=== PATIENT | female | born 1995 | race Caucasian/White ===

== ENCOUNTER 2017-04-21 21:55 | Emergency (ER) | payer OTHER, MEDICAID ==
[2017-04-21 22:32] LABS: BILIRUBIN,URINE NEGATIVE (NEGATIVE)
[2017-04-21 22:36] LABS: HCG UR QUAL NEGATIVE; UA w/ MICROSCOPIC CHARGE YES
[2017-04-21 22:37] LABS: BASOPHILS % (AUTO) 0.5 %; EOSINOPHILS # (AUTO) 0.2 10^3/uL (0.0-0.7); EOSINOPHILS % (AUTO) 1.5 %; HCT - HEMATOCRIT 37.7 % (37.0-47.0); HGB - HEMOGLOBIN 12.4 g/dL (12.0-16.0); LYMPHOCYTES # (AUTO) 3.9 10^3/uL (1.5-3.5); LYMPHOCYTES % (AUTO) 39.4 %; MEAN CORPUSCULAR HEMOGLOBIN 26.9 pg (27.0-31.0); MEAN CORPUSCULAR HGB CONC 32.8 g/dL (32.0-36.0); MEAN CORPUSCULAR VOLUME 82.2 fL (81.0-99.0); MEAN PLATELET VOLUME 7.4 fL (7.9-10.8); MONOCYTES # (AUTO) 0.9 10^3/uL (0.0-1.0); MONOCYTES % (AUTO) 9.1 %; NEUTROPHILS # (AUTO) 4.9 10^3/uL (1.5-6.6); NEUTROPHILS % (AUTO) 49.5 %; RED BLOOD COUNT 4.59 10^6/uL (4.20-5.40); RED CELL DISTRIBUTION WIDTH 14.8 % (12.0-15.0)
[2017-04-21 22:48] LABS: ALBUMIN/GLOBULIN RATIO 0.9 (1.0-2.2); BILIRUBIN,TOTAL < 0.2 mg/dL (0.2-1.0); BUN - BLOOD UREA NITROGEN 10 mg/dL (6-20); CALCIUM 8.9 mg/dL (8.5-10.3); CARBON DIOXIDE - CO2 23 mmol/L (21-32); CHLORIDE 108 mmol/L (101-111); CREATININE 0.7 mg/dL (0.4-1.0); GFR - MDRD 108 (>89); GLUCOSE 87 mg/dL (70-100); LIPASE 31 U/L (22-51); SALICYLATE < 6.0 mg/dL; SODIUM 140 mmol/L (135-145); TOTAL PROTEIN 7.5 g/dL (6.7-8.2)
[2017-04-21 23:08] LABS: UR CULTURE IF IND INDICATED
[2017-04-21 23:26] LABS: ACETAMINOPHEN < 10 ug/mL (10-30)
[2017-04-21] MEDS ORDERED: SULFAMETH/TRIMETH DS 800/160 MG TABLET PO STA (23:43)
[2017-04-22] MEDS ORDERED: SULFAMETH/TRIMETH DS 800/160 MG TABLET PO ONE (00:31)
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
--- NOTE | 2017-04-22 03:30 | ED Physician Documentation ---
PD HPI MHE - Stated complaint Stated Complaint: SI/MHE - Chief complaint Chief Complaint: MHE - History obtained from History obtained from: Patient, EMS - History of Present Illness Primary symptom: Suicidal ideation, Depression Timing - onset: Chronic Contributing factors: Other Similar symptoms before: Work up / diagnostics, Treatment, Follow up Recently seen: Admitted - Additional information Additional information: Patient is a 21 year old female with a history of depression who is presenting to the emergency department for suicidal ideation. Patient states that she does not like herself and she wants to . patient reports that she would have taken all of her meds, but her parents control them. Patient deny any new life changes or medical complaints. Review of Systems Constitutional: denies: Fever, Chills Eyes: denies: Photophobia Ears: denies: Ear pain, Drainage/discharge Nose: denies: Congestion Throat: denies: Dental pain / toothache Cardiac: denies: Chest pain / pressure GI: denies: Abdominal Pain, Nausea, Vomiting : denies: Dysuria, Frequency Musculoskeletal: denies: Neck pain, Back pain, Extremity pain Neurologic: denies: Generalized weakness, Numbness Psychiatric: reports: Depressed, Suicidal. denies: Homicidal, Hallucinations, Delusions Immunocompromised: denies: Immunocompromised PD PAST MEDICAL HISTORY - Past Medical History Past Medical History: No Cardiovascular: None Psych: Anxiety, Bipolar disorder, Post traumatic stress disorder - Past Surgical History Past Surgical History: No - Present Medications Home Medications: Ambulatory Orders Medication Instructions Recorded Confirmed ARIPiprazole [Abilify] 10 mg PO DAILY 04/21/17 04/21/17 Lamotrigine [Lamictal] 200 mg PO DAILY 04/21/17 04/21/17 Melatonin 3 mg PO DAILY 04/21/17 04/21/17 Trifluoperazine HCl 2 mg PO DAILY 04/21/17 04/21/17 - Allergies Allergies/Adverse Reactions: Allergies Allergy/AdvReac Type Severity Reaction Status Date / Time No Known Drug Allergies Allergy Verified 04/21/17 22:02 - Social History Does the pt smoke?: No Smoking Status: Never smoker Does the pt drink ETOH?: No Does the pt have substance abuse?: No - Immunizations Immunizations are current?: Yes - POLST Patient has POLST: No PD ED PE NORMAL - Vitals Vital signs reviewed: Yes - General General: Alert and oriented X 3, Well developed/nourished - HEENT HEENT: Atraumatic, PERRL - Neck Neck: Supple, no meningeal sign - Cardiac Cardiac: RRR, No murmur - Respiratory Respiratory: No respiratory distress - Abdomen Abdomen: Soft, Non tender, Non distended - Derm Derm: Normal color, Warm and dry - Extremities Extremities: No deformity, No edema - Neuro Neuro: Alert and oriented X 3, No motor deficit, No sensory deficit, Normal speech PD ED PE EXPANDED - Psych Psych: Depressed, Suicidal, Tearful Results - Vitals Vitals: Vital Signs - 24 hr 04/21/17 21:57 Temperature 37.1 C Heart Rate 101 H Respiratory 16 Rate Blood Pressure 132/83 H O2 Saturation 98 Oxygen O2 Source Room air - Labs Labs: Laboratory Tests 04/21/17 04/21/17 04/21/17 22:00 22:21 22:21 WBC 10.0 RBC 4.59 Hgb 12.4 Hct 37.7 MCV 82.2 MCH 26.9 L MCHC 32.8 RDW 14.8 Plt Count 344 MPV 7.4 L Neut # 4.9 Lymph # 3.9 H [place] # 0.9 Eos # 0.2 Baso # 0.0 Absolute Nucleated RBC 0.00 Nucleated RBCs 0.0 Sodium 140 Potassium 4.0 Chloride 108 Carbon Dioxide 23 Anion Gap 9.0 BUN 10 Creatinine 0.7 Estimated GFR (MDRD) 108 Glucose 87 Calcium 8.9 Total Bilirubin < 0.2 L AST 19 ALT 16 Alkaline Phosphatase 84 Total Protein 7.5 Albumin 3.5 Globulin 4.0 Albumin/Globulin Ratio 0.9 L Lipase 31 TSH Urine Color Urine Clarity Urine pH Ur Specific [place] Urine Protein Urine Glucose (UA) Urine Ketones Urine Occult Blood Urine Nitrite Urine Bilirubin Urine Urobilinogen Ur Leukocyte Esterase Urine RBC Urine WBC Ur Squamous Epith Cells Urine Crystals Urine Bacteria Ur Microscopic Review Urine Culture Comments Urine HCG, Qual Salicylates < 6.0 Urine Opiates Screen NEGATIVE Ur Oxycodone Screen NEGATIVE Urine Methadone Screen NEGATIVE Ur Propoxyphene Screen NEGATIVE Acetaminophen < 10 L Ur Barbiturates Screen NEGATIVE Ur Tricyclics Screen NEGATIVE Ur Phencyclidine Scrn NEGATIVE Ur Amphetamine Screen NEGATIVE U Methamphetamines Scrn NEGATIVE U Benzodiazepines Scrn NEGATIVE Urine Cocaine Screen NEGATIVE U Cannabinoids Screen NEGATIVE Ethyl Alcohol < 5.0 08/08/17 08/08/17 22:21 22:21 WBC RBC Hgb Hct MCV MCH MCHC RDW Plt Count MPV Neut # Lymph # [place] # Eos # Baso # Absolute Nucleated RBC Nucleated RBCs Sodium Potassium Chloride Carbon Dioxide Anion Gap BUN Creatinine Estimated GFR (MDRD) Glucose Calcium Total Bilirubin AST ALT Alkaline Phosphatase Total Protein Albumin Globulin Albumin/Globulin Ratio Lipase TSH 2.56 Urine Color YELLOW Urine Clarity HAZY Urine pH 6.0 Ur Specific [place] >=1.030 H Urine Protein NEGATIVE Urine Glucose (UA) NEGATIVE Urine Ketones NEGATIVE Urine Occult Blood TRACE-LYSE Urine Nitrite NEGATIVE Urine Bilirubin NEGATIVE Urine Urobilinogen 0.2 (NORMAL) Ur Leukocyte Esterase MODERATE H Urine RBC 0-5 Urine WBC 11-25 H Ur Squamous Epith Cells FEW Squamous Urine Crystals 11-25 Ca Oxalate Urine Bacteria Few Ur Microscopic Review INDICATED Urine Culture Comments INDICATED Urine HCG, Qual NEGATIVE Salicylates Urine Opiates Screen Ur Oxycodone Screen Urine Methadone Screen Ur Propoxyphene Screen Acetaminophen Ur Barbiturates Screen Ur Tricyclics Screen Ur Phencyclidine Scrn Ur Amphetamine Screen U Methamphetamines Scrn U Benzodiazepines Scrn Urine Cocaine Screen U Cannabinoids Screen Ethyl Alcohol PD MEDICAL DECISION MAKING - ED course Complexity details: reviewed old records, reviewed results, re-evaluated patient , considered differential, d/w patient, d/w senior market intelligence consultant ED course: Patient was seen and examined at bedside. labs were drawn and urine was collected. Patient was medically cleared when all of the results came back. tele psych consult was ordered and patient was evaluated and deemed a candidate for inpatient care. Patient was signed over to the day team for social work evaluation and placement. Departure - Departure Clinical Impression: Anxiety, Depression, Hallucinations, Suicidal ideation, Psychiatric symptoms, Severe mood dysregulation disorder, Unspecified personality disorder, PTSD (post -traumatic stress disorder) Bipolar affective, depress, unspec Qualifiers: Current episode severity: severe Psychotic features: with psychotic features Qualified Code(s): F31.5 - Bipolar disorder, current episode depressed, severe, with psychotic features Condition: Poor Comments: 21y/o swf with h/o PTSD and mood d/o came in with c/o feeling depressed, hopeless and suicidal. She has a h/o prior self harm and suicide attempts. She does not feel she has support. She has a h/o trauma with ongoing nightmares and flashbacks. She admits to poor sleep, frequent crying and c/o hearing derogatory voices telling her to harm herself. Pt has a past dx of bipolar and PTSD. She is c/o psychotic sx but does not currently appear to be responding to internal stimuli. Recommend e/f personality d/o and consider referral to DBT if available. She is currently in crisis and has harmed herself before, I would recommend continuing with her current meds for now and admit to mental health unit if available for safety and crisis stabilization.
[2017-04-22 09:51] VITALS: BP 158/93
--- NOTE | 2017-04-22 12:43 | ED Physician Documentation ---
History of Present Illness - Stated complaint Stated Complaint: SI/MHE - Chief complaint Chief Complaint: MHE - Additonal information Additional information: 21-year-old female who is seen here yesterday, kept overnight, and at this point has been cleared from our team for voluntary admission at a care facility in [place]. The patient's right is here to take her. The patient has been doing well clinically. She is sitting in her room and has been compliant with her treatment plan. She is going to [facility] respite at this time. PD PAST MEDICAL HISTORY - Past Medical History Past Medical History: No Cardiovascular: None Psych: Anxiety, Bipolar disorder, Post traumatic stress disorder - Past Surgical History Past Surgical History: No - Present Medications Home Medications: Ambulatory Orders Medication Instructions Recorded Confirmed ARIPiprazole [Abilify] 10 mg PO DAILY 04/21/17 04/21/17 Lamotrigine [Lamictal] 200 mg PO DAILY 04/21/17 04/21/17 Melatonin 3 mg PO DAILY 04/21/17 04/21/17 Trifluoperazine HCl 2 mg PO DAILY 04/21/17 04/21/17 - Allergies Allergies/Adverse Reactions: Allergies Allergy/AdvReac Type Severity Reaction Status Date / Time No Known Drug Allergies Allergy Verified 04/21/17 22:02 - Social History Does the pt smoke?: No Smoking Status: Never smoker Does the pt drink ETOH?: No Does the pt have substance abuse?: No - Immunizations Immunizations are current?: Yes - POLST Patient has POLST: No Results - Vitals Vitals: Vital Signs - 24 hr 04/21/17 04/22/17 21:57 09:50 Temperature 37.1 C 36.9 C Heart Rate 101 H 108 H Respiratory 16 16 Rate Blood Pressure 132/83 H 158/93 H O2 Saturation 98 98 Oxygen O2 Source Room air - Labs Labs: Laboratory Tests 04/21/17 04/21/17 04/21/17 22:00 22:21 22:21 WBC 10.0 RBC 4.59 Hgb 12.4 Hct 37.7 MCV 82.2 MCH 26.9 L MCHC 32.8 RDW 14.8 Plt Count 344 MPV 7.4 L Neut # 4.9 Lymph # 3.9 H [place] # 0.9 Eos # 0.2 Baso # 0.0 Absolute Nucleated RBC 0.00 Nucleated RBCs 0.0 Sodium 140 Potassium 4.0 Chloride 108 Carbon Dioxide 23 Anion Gap 9.0 BUN 10 Creatinine 0.7 Estimated GFR (MDRD) 108 Glucose 87 Calcium 8.9 Total Bilirubin < 0.2 L AST 19 ALT 16 Alkaline Phosphatase 84 Total Protein 7.5 Albumin 3.5 Globulin 4.0 Albumin/Globulin Ratio 0.9 L Lipase 31 TSH Urine Color Urine Clarity Urine pH Ur Specific [place] Urine Protein Urine Glucose (UA) Urine Ketones Urine Occult Blood Urine Nitrite Urine Bilirubin Urine Urobilinogen Ur Leukocyte Esterase Urine RBC Urine WBC Ur Squamous Epith Cells Urine Crystals Urine Bacteria Ur Microscopic Review Urine Culture Comments Urine HCG, Qual Salicylates < 6.0 Urine Opiates Screen NEGATIVE Ur Oxycodone Screen NEGATIVE Urine Methadone Screen NEGATIVE Ur Propoxyphene Screen NEGATIVE Acetaminophen < 10 L Ur Barbiturates Screen NEGATIVE Ur Tricyclics Screen NEGATIVE Ur Phencyclidine Scrn NEGATIVE Ur Amphetamine Screen NEGATIVE U Methamphetamines Scrn NEGATIVE U Benzodiazepines Scrn NEGATIVE Urine Cocaine Screen NEGATIVE U Cannabinoids Screen NEGATIVE Ethyl Alcohol < 5.0 04/21/17 04/21/17 22:21 22:21 WBC RBC Hgb Hct MCV MCH MCHC RDW Plt Count MPV Neut # Lymph # [place] # Eos # Baso # Absolute Nucleated RBC Nucleated RBCs Sodium Potassium Chloride Carbon Dioxide Anion Gap BUN Creatinine Estimated GFR (MDRD) Glucose Calcium Total Bilirubin AST ALT Alkaline Phosphatase Total Protein Albumin Globulin Albumin/Globulin Ratio Lipase TSH 2.56 Urine Color YELLOW Urine Clarity HAZY Urine pH 6.0 Ur Specific [place] >=1.030 H Urine Protein NEGATIVE Urine Glucose (UA) NEGATIVE Urine Ketones NEGATIVE Urine Occult Blood TRACE-LYSE Urine Nitrite NEGATIVE Urine Bilirubin NEGATIVE Urine Urobilinogen 0.2 (NORMAL) Ur Leukocyte Esterase MODERATE H Urine RBC 0-5 Urine WBC 11-25 H Ur Squamous Epith Cells FEW Squamous Urine Crystals 11-25 Ca Oxalate Urine Bacteria Few Ur Microscopic Review INDICATED Urine Culture Comments INDICATED Urine HCG, Qual NEGATIVE Salicylates Urine Opiates Screen Ur Oxycodone Screen Urine Methadone Screen Ur Propoxyphene Screen Acetaminophen Ur Barbiturates Screen Ur Tricyclics Screen Ur Phencyclidine Scrn Ur Amphetamine Screen U Methamphetamines Scrn U Benzodiazepines Scrn Urine Cocaine Screen U Cannabinoids Screen Ethyl Alcohol Departure - Departure Clinical Impression: Anxiety, Depression, Hallucinations, Suicidal ideation, Psychiatric symptoms, Severe mood dysregulation disorder, Unspecified personality disorder, PTSD (post -traumatic stress disorder) Bipolar affective, depress, unspec Qualifiers: Current episode severity: severe Psychotic features: with psychotic features Qualified Code(s): F31.5 - Bipolar disorder, current episode depressed, severe, with psychotic features Condition: Poor Instructions: ED Stress React Comments: 21y/o swf with h/o PTSD and mood d/o came in with c/o feeling depressed, hopeless and suicidal. She has a h/o prior self harm and suicide attempts. She does not feel she has support. She has a h/o trauma with ongoing nightmares and flashbacks. She admits to poor sleep, frequent crying and c/o hearing derogatory voices telling her to harm herself. Pt has a past dx of bipolar and PTSD. She is c/o psychotic sx but does not currently appear to be responding to internal stimuli. Recommend e/f personality d/o and consider referral to DBT if available. She is currently in crisis and has harmed herself before, I would recommend continuing with her current meds for now and admit to mental health unit if available for safety and crisis stabilization.
== END 2017-04-22 12:45 | disposition home or self-care (01) ==
LOC: EDUNIT# → ED 21:55
DX: F31.5 Bipolar disorder, current episode depressed, severe, with psychotic features (principal); R45.851 Suicidal ideations; Z91.5 Personal history of self-harm; F43.10 Post-traumatic stress disorder, unspecified; F41.9 Anxiety disorder, unspecified
CPT/HCPCS: 36415; 80053; 80306; 80307; 80320; 80329; 81001; 81025; 83690; 84443; 85025; 87086; 99284; A9270; 81003; 99283

== ENCOUNTER 2017-05-08 19:38 | Emergency (ER) | payer OTHER, MEDICAID ==
--- NOTE | 2017-05-08 20:53 | ED Physician Documentation ---
PD HPI CHEST PAIN - Stated complaint Stated Complaint: BACK/CHEST PX - Chief complaint Chief Complaint: Back Pain - History obtained from History obtained from: Patient - History of Present Illness Timing - onset: Today (this evening) Timing - onset during: Light activity Timing - duration: Hours Timing - details: Abrupt onset, Waxing and waning Pain level now: 6 Quality: Pain Location: Substernal Radiation: Back Improved by: Nothing Worsened by: Inspiration, Other Associated symptoms: No: Shortness of air, Diaphoresis, Nausea, Vomiting, Feeling faint / dizzy, General Weakness, Palpitations, Cough Similar symptoms before: Has not had sx before Recently seen: Emergency Dept ([facility] reflects frequent ED visits (over a dozen ED visits over past 3 months to [facility], and this is the second [facility] ED visit this month; paco's visit appears to be the first visit that does not involve MHE as the chief complaint)) - Additional information Additional information: c/o midline chest pain x few hours radiating to back, onset while ambulating at home. No h/o same. She does not feel this is similar to previous anxiety exacerbations (usually does not have pain). Review of Systems Constitutional: reports: Reviewed and negative Cardiac: reports: Chest pain / pressure. denies: Palpitations, Pedal edema, Calf pain Respiratory: denies: Dyspnea, Cough Musculoskeletal: denies: Extremity swelling PD PAST MEDICAL HISTORY - Past Medical History Past Medical History: Yes Cardiovascular: None Respiratory: None Neuro: None Endocrine/Autoimmune: None GI: None INVERTED BLOCK OPERATOR: None : None HEENT: None Psych: Anxiety Musculoskeletal: None Derm: None - Past Surgical History Past Surgical History: No - Present Medications Home Medications: Ambulatory Orders Medication Instructions Recorded Confirmed ARIPiprazole [Abilify] 10 mg PO DAILY 04/21/17 04/21/17 Lamotrigine [Lamictal] 200 mg PO DAILY 04/21/17 04/21/17 Melatonin 3 mg PO DAILY 04/21/17 04/21/17 Trifluoperazine HCl 2 mg PO DAILY 04/21/17 04/21/17 - Allergies Allergies/Adverse Reactions: Allergies Allergy/AdvReac Type Severity Reaction Status Date / Time No Known Drug Allergies Allergy Verified 05/08/17 19:57 - Social History Does the pt smoke?: No Smoking Status: Never smoker Does the pt drink ETOH?: No Does the pt have substance abuse?: No - Immunizations Immunizations are current?: Yes - POLST Patient has POLST: No PD ED PE NORMAL - Vitals Vital signs reviewed: Yes - General General: Alert and oriented X 3, No acute distress, Well developed/nourished - Cardiac Cardiac: RRR, No murmur, No gallop, No rub - Respiratory Respiratory: No respiratory distress, Clear bilaterally - Abdomen Abdomen: Soft, Non tender - Extremities Extremities: No edema Results - Vitals Vitals: Vital Signs - 24 hr 05/08/17 05/08/17 05/08/17 19:54 20:03 20:06 Temperature 36.3 C L Heart Rate 110 H 97 94 Respiratory 18 18 18 Rate Blood Pressure 133/88 H 159/86 H O2 Saturation 100 100 99 05/08/17 05/08/17 05/08/17 20:51 21:39 22:08 Temperature Heart Rate 86 103 H 102 H Respiratory 17 17 17 Rate Blood Pressure 157/88 H 131/61 H 145/71 H O2 Saturation 100 99 98 05/08/17 22:27 Temperature Heart Rate 88 Respiratory 17 Rate Blood Pressure O2 Saturation 98 Oxygen O2 Source Room air - EKG (time done) No standard instances Rate: Rate (enter#) (88) Rhythm: NSR [place]: Normal Intervals: Normal [place] QRS: Normal Ischemia: Normal ST segments - Rads (name of study) chest xray Radiology: Prelim report reviewed, See rad report PD MEDICAL DECISION MAKING - ED course Complexity details: reviewed results, re-evaluated patient, considered differential, d/w patient Departure - Departure Disposition: 01 Home, Self Care Clinical Impression: Chest pain Condition: Good Instructions: ED Chest Pain Atypical Unkn Cause Follow-Up: [facility] [Provider Group] [facility] [Provider Group] Discharge Date/Time: 05/08/17 22:29
--- NOTE | 2017-05-08 22:08 | XRAY Preliminary Report ---
Exam: XR Chest 2 View PA/LAT IMPRESSION: Normal 2-view chest radiography. RADIA SITE ID: [id number]
[2017-05-08 22:09] VITALS: BP 145/71
--- NOTE | 2017-05-08 22:11 | XRAY Report ---
EXAM: CHEST RADIOGRAPHY EXAM DATE: 05/08/2017 09:53 PM. CLINICAL HISTORY: Chest pain since this morning. COMPARISON: None. TECHNIQUE: 2 views. FINDINGS: Lungs/Pleura: No focal opacities evident. No pleural effusion. No pneumothorax. Normal volumes. Mediastinum: Heart and mediastinal contours are unremarkable. Other: None. IMPRESSION: Normal 2-view chest radiography. [facility] Referring Provider Line: [phone] SITE ID: [id number]
[2017-05-08] MEDS ORDERED: IBUPROFEN 600 MG TABLET PO STA (22:16)
[2017-05-08] MEDS ORDERED: IBUPROFEN 600 MG TABLET PO ONE (22:26)
== END 2017-05-08 22:29 | disposition home or self-care (01) ==
LOC: ED 19:38
DX: R07.9 Chest pain, unspecified (principal)
CPT/HCPCS: 71020; 93005; 99284; A9270; 85379

== ENCOUNTER 2017-05-11 20:16 | Emergency (ER) | payer OTHER, MEDICAID ==
--- NOTE | 2017-05-11 20:48 | ED Physician Documentation ---
PD HPI MHE - Stated complaint Stated Complaint: MHE - Chief complaint Chief Complaint: MHE - History obtained from History obtained from: Patient - History of Present Illness Primary symptom: Suicidal ideation Timing - onset: How many weeks ago (1) Similar symptoms before: Diagnosis (depression, previous suicide attempt) Recently seen: Admitted (inpatient psychiatric stay last month) Review of Systems Cardiac: reports: Reviewed and negative Respiratory: reports: Reviewed and negative GI: reports: Reviewed and negative Musculoskeletal: reports: Reviewed and negative Psychiatric: reports: Depressed, Suicidal, Anxiety. 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 : None HEENT: None Psych: Anxiety Musculoskeletal: None Derm: None - Past Surgical History Past Surgical History: No - Present Medications Home Medications: Ambulatory Orders Medication Instructions Recorded Confirmed ARIPiprazole [Abilify] 10 mg PO DAILY 04/21/17 04/21/17 Lamotrigine [Lamictal] 200 mg PO DAILY 04/21/17 04/21/17 Melatonin 3 mg PO DAILY 04/21/17 04/21/17 Trifluoperazine HCl 2 mg PO DAILY 04/21/17 04/21/17 - Allergies Allergies/Adverse Reactions: Allergies Allergy/AdvReac Type Severity Reaction Status Date / Time No Known Drug Allergies Allergy Verified 05/11/17 20:34 - Social History Does the pt smoke?: No Smoking Status: Never smoker Does the pt drink ETOH?: No Does the pt have substance abuse?: No - Immunizations Immunizations are current?: Yes - POLST Patient has POLST: No PD ED PE NORMAL - Vitals Vital signs reviewed: Yes - General General: Alert and oriented X 3, No acute distress, Well developed/nourished, Other (answers quietly but appropriately. good eye contact) - HEENT HEENT: PERRL, EOMI, Moist mucous membranes - Cardiac Cardiac: RRR, No murmur - Respiratory Respiratory: No respiratory distress, Clear bilaterally - Derm Derm: Normal color, Warm and dry - Neuro Neuro: Alert and oriented X 3 - Psych Psych: Other (depressed mood, flat affect) Results - Vitals Vitals: Vital Signs - 24 hr 05/12/17 05/12/17 05:59 12:30 Heart Rate 89 100 Respiratory 18 18 Rate Blood Pressure 129/70 137/92 H O2 Saturation 100 100 Oxygen O2 Source Room air - Labs Labs: Laboratory Tests 05/11/17 05/11/17 05/11/17 21:10 21:10 21:16 WBC 12.0 H RBC 4.36 Hgb 11.8 L Hct 35.9 L MCV 82.4 MCH 27.1 MCHC 32.9 RDW 14.4 Plt Count 322 MPV 7.2 L Neut # 6.5 Lymph # 4.3 H [place] # 0.9 Eos # 0.2 Baso # 0.1 Absolute Nucleated RBC 0.01 Nucleated RBCs 0.1 Sodium 139 Potassium 3.6 Chloride 106 Carbon Dioxide 23 Anion Gap 10.0 BUN 9 Creatinine 0.7 Estimated GFR (MDRD) 108 Glucose 107 H Calcium 9.0 Urine Color Urine Clarity Urine pH Ur Specific [place] Urine Protein Urine Glucose (UA) Urine Ketones Urine Occult Blood Urine Nitrite Urine Bilirubin Urine Urobilinogen Ur Leukocyte Esterase Urine RBC Urine WBC Ur Squamous Epith Cells Urine Crystals Urine Bacteria Ur Microscopic Review Urine Culture Comments Urine HCG, Qual Urine Opiates Screen NEGATIVE Ur Oxycodone Screen NEGATIVE Urine Methadone Screen NEGATIVE Ur Propoxyphene Screen NEGATIVE Ur Barbiturates Screen NEGATIVE Ur Tricyclics Screen NEGATIVE Ur Phencyclidine Scrn NEGATIVE Ur Amphetamine Screen NEGATIVE U Methamphetamines Scrn NEGATIVE U Benzodiazepines Scrn NEGATIVE Urine Cocaine Screen NEGATIVE U Cannabinoids Screen NEGATIVE Ethyl Alcohol < 5.0 05/11/17 05/11/17 21:16 22:11 WBC RBC Hgb Hct MCV MCH MCHC RDW Plt Count MPV Neut # Lymph # [place] # Eos # Baso # Absolute Nucleated RBC Nucleated RBCs Sodium Potassium Chloride Carbon Dioxide Anion Gap BUN Creatinine Estimated GFR (MDRD) Glucose Calcium Urine Color YELLOW YELLOW Urine Clarity CLEAR CLEAR Urine pH 6.0 6.0 Ur Specific [place] >=1.030 H >=1.030 H Urine Protein NEGATIVE NEGATIVE Urine Glucose (UA) NEGATIVE NEGATIVE Urine Ketones NEGATIVE NEGATIVE Urine Occult Blood NEGATIVE [place]ACE-INTA Urine Nitrite NEGATIVE NEGATIVE Urine Bilirubin NEGATIVE NEGATIVE Urine Urobilinogen 0.2 (NORMAL) 0.2 (NORMAL) Ur Leukocyte Esterase SMALL H NEGATIVE Urine RBC 0-5 Urine WBC >25 H Ur Squamous Epith Cells MOD Squamous H Urine Crystals 26-50 Ca Oxalate Urine Bacteria Moderate H Ur Microscopic Review INDICATED NOT INDICATED Urine Culture Comments NOT INDICATED NOT INDICATED Urine HCG, Qual NEGATIVE Urine Opiates Screen Ur Oxycodone Screen Urine Methadone Screen Ur Propoxyphene Screen Ur Barbiturates Screen Ur Tricyclics Screen Ur Phencyclidine Scrn Ur Amphetamine Screen U Methamphetamines Scrn U Benzodiazepines Scrn Urine Cocaine Screen U Cannabinoids Screen Ethyl Alcohol PD MEDICAL DECISION MAKING - ED course Complexity details: reviewed old records, reviewed results, re-evaluated patient , considered differential, d/w patient ED course: Several unsuccessful attempts over approximately 2 hours to connect to [facility]. Patient tells me she is not comfortable going home, feels unsafe due to thoughts of self-harm. A product representative from [facility] (where patient is staying) is at bedside and also expresses to me her concern that patient is unsafe going back to [facility] at this time due to concern for self-harm. [facility] contacted, refuse to dispatch [facility]. Will hold patient until morning for SW consult. Departure - Departure Disposition: 65 Psych Hosp/Unit DC/Xfer Clinical Impression: Suicidal ideation Depression Qualifiers: Depression Type: unspecified Qualified Code(s): F32.9 - Major depressive disorder, single episode, unspecified Condition: Good Instructions: ED Depression Discharge Date/Time: 05/12/17 16:44
[2017-05-11 21:18] LABS: BASOPHILS # (AUTO) 0.1 10^3/uL (0.0-0.1); BASOPHILS % (AUTO) 0.8 %; EOSINOPHILS # (AUTO) 0.2 10^3/uL (0.0-0.7); EOSINOPHILS % (AUTO) 1.4 %; HCT - HEMATOCRIT 35.9 % (37.0-47.0); HGB - HEMOGLOBIN 11.8 g/dL (12.0-16.0); LYMPHOCYTES # (AUTO) 4.3 10^3/uL (1.5-3.5); LYMPHOCYTES % (AUTO) 36.2 %; MEAN CORPUSCULAR HEMOGLOBIN 27.1 pg (27.0-31.0); MEAN CORPUSCULAR HGB CONC 32.9 g/dL (32.0-36.0); MEAN CORPUSCULAR VOLUME 82.4 fL (81.0-99.0); MEAN PLATELET VOLUME 7.2 fL (7.9-10.8); MONOCYTES # (AUTO) 0.9 10^3/uL (0.0-1.0); MONOCYTES % (AUTO) 7.7 %; NEUTROPHILS # (AUTO) 6.5 10^3/uL (1.5-6.6); NEUTROPHILS % (AUTO) 53.9 %; NUCLEATED RED BLOOD CELLS AUTO 0.1 /100WBC; RED BLOOD COUNT 4.36 10^6/uL (4.20-5.40); RED CELL DISTRIBUTION WIDTH 14.4 % (12.0-15.0)
[2017-05-11 21:30] LABS: BUN - BLOOD UREA NITROGEN 9 mg/dL (6-20); CARBON DIOXIDE - CO2 23 mmol/L (21-32); CHLORIDE 106 mmol/L (101-111); CREATININE 0.7 mg/dL (0.4-1.0); GFR - MDRD 108 (>89); GLUCOSE 107 mg/dL (70-100); POTASSIUM 3.6 mmol/L (3.5-5.0); SODIUM 139 mmol/L (135-145)
[2017-05-11 21:33] LABS: BILIRUBIN,URINE NEGATIVE (NEGATIVE)
[2017-05-11 21:37] LABS: HCG UR QUAL NEGATIVE; UA w/ MICROSCOPIC CHARGE YES
[2017-05-11 21:48] LABS: UR CULTURE IF IND NOT INDICATED; WBC,URINE >25 /HPF (0-5)
[2017-05-11 22:27] LABS: BILIRUBIN,URINE NEGATIVE (NEGATIVE)
[2017-05-11 22:33] LABS: UA CHARGE (STRIP ONLY) YES; UR CULTURE IF IND NOT INDICATED
[2017-05-12] MEDS ORDERED: LORazepam 0.5 MG TABLET PO STA ×2 (01:36→13:55)
[2017-05-12] MEDS ORDERED: LORazepam 0.5 MG TABLET ONE ×2 (01:41→14:01)
[2017-05-12 12:30] VITALS: BP 137/92
--- NOTE | 2017-05-12 13:58 | ED Physician Documentation ---
ED Addendum - Addendum Addendum: 05/12/17 13:56 The patient remains stable in the ED. Given meals and is able to relax. PEREZ Ingram talked with patient and was able to get her a voluntary admission bed to [facility]. Pain is okay with the plan. Will provide transportation with BLS.
== END 2017-05-12 16:44 ==
LOC: ED 20:16
DX: F32.9 Major depressive disorder, single episode, unspecified (principal); R45.851 Suicidal ideations; F41.9 Anxiety disorder, unspecified
CPT/HCPCS: 36415; 80048; 80306; 80320; 81001; 81003; 81025; 85025; 99284; A9270; 87086; 99283

== ENCOUNTER 2017-05-29 23:44 | Emergency (ER) | payer OTHER, MEDICAID ==
--- NOTE | 2017-05-30 00:49 | ED Physician Documentation ---
History of Present Illness - Stated complaint Stated Complaint: PASSED OUT,RAPID HEART RATE - Chief complaint Chief Complaint: Neuro - History obtained from History obtained from: Patient - History of Present Illness Timing: Today Pain level max: 5 Pain level now: 5 Improved by: nothing Worsened by: nothing - Additonal information Additional information: Patient is a 21-year-old female who states she was in the shower today when she felt like she may have passed out, she hit her head and now has a slight headache. Brought in for evaluation. She does remember falling and hitting her head. Unsure if she passed out before or after the fall. No nausea or vomiting. No abdominal pain. Review of Systems Ten Systems: 10 systems reviewed and negative Constitutional: denies: Fever, Chills Ears: denies: Ear pain Nose: denies: Rhinorrhea / runny nose, Congestion Throat: denies: Sore throat Cardiac: denies: Chest pain / pressure Respiratory: denies: Cough GI: denies: Abdominal Pain, Nausea, Vomiting, Diarrhea : denies: Dysuria, Frequency, Hesitancy, Now EGA Skin: denies: Rash Musculoskeletal: denies: Neck pain, Back pain Neurologic: denies: Focal weakness, Numbness Psychiatric: denies: Suicidal, Homicidal PD PAST MEDICAL HISTORY - Past Medical History Cardiovascular: None Respiratory: None Neuro: None Endocrine/Autoimmune: None GI: None 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 : None HEENT: None Psych: Anxiety Musculoskeletal: None Derm: None - Past Surgical History Past Surgical History: No - Present Medications Home Medications: Ambulatory Orders Medication Instructions Recorded Confirmed ARIPiprazole [Abilify] 10 mg PO DAILY 04/21/17 04/21/17 Lamotrigine [Lamictal] 200 mg PO DAILY 04/21/17 04/21/17 Melatonin 3 mg PO DAILY 04/21/17 04/21/17 Trifluoperazine HCl 2 mg PO DAILY 04/21/17 04/21/17 - Allergies Allergies/Adverse Reactions: Allergies Allergy/AdvReac Type Severity Reaction Status Date / Time No Known Drug Allergies Allergy Verified 05/29/17 23:52 - Living Situation Living Arrangement: reports: At home - Social History Does the pt smoke?: No Smoking Status: Never smoker Does the pt drink ETOH?: No Does the pt have substance abuse?: No - Immunizations Immunizations are current?: Yes - POLST Patient has POLST: No PD ED PE NORMAL - Vitals Vital signs reviewed: Yes - General General: Alert and oriented X 3, No acute distress, Other (drowsy, but arousable ) - HEENT HEENT: Atraumatic, PERRL, Ears normal, Moist mucous membranes - Neck Neck: Supple, no meningeal sign - Cardiac Cardiac: RRR - Respiratory Respiratory: No respiratory distress, Clear bilaterally - Abdomen Abdomen: Soft, Non tender, Non distended - Back Back: No spinal TTP - Derm Derm: Warm and dry, No rash - Extremities Extremities: Normal ROM s pain, No edema, No calf tenderness / cord - Neuro Neuro: Alert and oriented X 3, radiophone operator 2-12 intact, No motor deficit, No sensory deficit, Normal speech - Psych Psych: Normal mood, Normal affect Results - Vitals Vitals: Vital Signs - 24 hr 05/29/17 05/30/17 05/30/17 23:49 00:41 01:49 Temperature 36.4 C L 36.8 C 36.3 C L Heart Rate 109 H 107 H 104 H Respiratory 20 18 15 Rate Blood Pressure 141/92 H 127/78 108/60 O2 Saturation 99 97 96 Oxygen O2 Source Room air - EKG (time done) 0122 Rate: Rate (enter#) (98) Rhythm: NSR [place]: Normal Intervals: Normal NC QRS: Normal Ischemia: Normal ST segments - Labs Labs: Laboratory Tests 05/30/17 05/30/17 05/30/17 01:28 01:28 01:28 WBC 13.3 H RBC 3.83 L Hgb 10.4 L Hct 31.2 L MCV 81.6 MCH 27.0 MCHC 33.1 RDW 13.8 Plt Count 321 MPV 6.9 L Neut # 8.1 H Lymph # 3.4 [place] # 1.3 H Eos # 0.5 Baso # 0.1 Absolute Nucleated RBC 0.00 Nucleated RBCs 0.0 D-Dimer < 200.0 L Sodium 136 Potassium 3.6 Chloride 106 Carbon Dioxide 23 Anion Gap 7.0 BUN 9 Creatinine 0.7 Estimated GFR (MDRD) 108 Glucose 123 H Calcium 8.5 Total Bilirubin 0.4 AST 20 ALT 15 Alkaline Phosphatase 66 Total Protein 6.3 L Albumin 2.8 L Globulin 3.5 Albumin/Globulin Ratio 0.8 L Lipase 27 - Rads (name of study) head CT Radiology: Prelim report reviewed, EMP read contemporaneously, See rad report ( No acute intracranial abnormality) PD MEDICAL DECISION MAKING - ED course Complexity details: reviewed results, re-evaluated patient, considered differential, d/w patient ED course: Patient is a 21-year-old female status post a head injury today, unsure if she passed out as well, possibly before the head injury. No acute findings on laboratory testing or CT scan of the head, other than mild leukocytosis and anemia. Patient refused to give urine for urinalysis, test or drug screen and wants to leave AMA. She is awake and alert in the emergency department. Ambulating without difficulty. Alert and oriented 3. She appears to have the capacity to sign out AGAINST MEDICAL ADVICE at this time. She is counseled that she is welcome to return at any time. No criteria for invol hold. This document was made in part using voice recognition software. While efforts are made to proofread this document, sound alike and grammatical errors may occur. Departure - Departure Disposition: 07 Against Medical Advice Clinical Impression: Syncope Qualifiers: Syncope type: unspecified Qualified Code(s): R55 - Syncope and collapse Head injury Qualifiers: Encounter type: initial encounter Qualified Code(s): S09.90XA - Unspecified injury of head, initial encounter Condition: Stable Instructions: ED Fainting Unkn Cause, ED Head Injury Closed Follow-Up: your,doctor within 3 days [Other] Comments: You have left the emergency department against medical advice tonight. Return if you worsen or change your mind about being evaluated. You are welcome to return at any time. Discharge Date/Time: 05/30/17 02:29
[2017-05-30 01:35] LABS: BASOPHILS # (AUTO) 0.1 10^3/uL (0.0-0.1); BASOPHILS % (AUTO) 0.4 %; EOSINOPHILS # (AUTO) 0.5 10^3/uL (0.0-0.7); EOSINOPHILS % (AUTO) 3.4 %; HCT - HEMATOCRIT 31.2 % (37.0-47.0); HGB - HEMOGLOBIN 10.4 g/dL (12.0-16.0); LYMPHOCYTES # (AUTO) 3.4 10^3/uL (1.5-3.5); LYMPHOCYTES % (AUTO) 25.8 %; MEAN CORPUSCULAR HGB CONC 33.1 g/dL (32.0-36.0); MEAN CORPUSCULAR VOLUME 81.6 fL (81.0-99.0); MEAN PLATELET VOLUME 6.9 fL (7.9-10.8); MONOCYTES # (AUTO) 1.3 10^3/uL (0.0-1.0); MONOCYTES % (AUTO) 9.8 %; NEUTROPHILS # (AUTO) 8.1 10^3/uL (1.5-6.6); NEUTROPHILS % (AUTO) 60.6 %; RED BLOOD COUNT 3.83 10^6/uL (4.20-5.40); RED CELL DISTRIBUTION WIDTH 13.8 % (12.0-15.0); UNCORRECTED WHITE BLOOD COUNT 13.3 x10^3/uL; WHITE BLOOD COUNT 13.3 x10^3/uL (4.8-10.8)
[2017-05-30 01:51] VITALS: BP 108/60
[2017-05-30 01:51] LABS: ALBUMIN/GLOBULIN RATIO 0.8 (1.0-2.2); BILIRUBIN,TOTAL 0.4 mg/dL (0.2-1.0); CALCIUM 8.5 mg/dL (8.5-10.3); CREATININE 0.7 mg/dL (0.4-1.0); POTASSIUM 3.6 mmol/L (3.5-5.0); TOTAL PROTEIN 6.3 g/dL (6.7-8.2)
--- NOTE | 2017-05-30 02:13 | CT Preliminary Report ---
Exam: CT Head W/O IMPRESSION: Normal head CT. [facility] SITE ID: [id number]
--- NOTE | 2017-05-30 02:15 | CT Report ---
EXAM: CT HEAD EXAM DATE: 05/30/2017 01:20 AM. CLINICAL HISTORY: Fall, head injury, drowsy. COMPARISON: None. TECHNIQUE: Multiaxial CT images were obtained from the foramen magnum to the vertex. IV contrast: Non e. Reformats: Coronal. In accordance with CT protocol optimization, one or more of the following dose reduction techniques w ere utilized for this exam: automated exposure control, adjustment of mA and/or KV based on patient s ize, or use of iterative reconstructive technique. FINDINGS: Parenchyma: No intraparenchymal hemorrhage. No evidence of mass, midline shift, or CT findings of inf arction. [place]-white differentiation is distinct. Extraaxial Spaces: Normal for age. No subdural or epidural collections identified. Ventricles: Normal in size and position. Sinuses: There is right maxillary sinus thickening. No sinus fluid levels. Mastoid air cells are well aerated. Bones: No evidence of fracture or calvarial defect. Other: None. IMPRESSION: Normal head CT. [facility] Referring Provider Line: [phone] SITE ID: [id number]
== END 2017-05-30 02:29 | disposition left against medical advice (07) ==
LOC: ED 23:44
DX: R55 Syncope and collapse (principal); S09.90XA Unspecified injury of head, initial encounter; W18.30XA Fall on same level, unspecified, initial encounter; Y93.E1 Activity, personal bathing and showering
CPT/HCPCS: 36415; 70450; 80053; 83690; 85025; 85379; 93005; 99283; 99284

== ENCOUNTER 2017-06-04 13:56 | Outpatient (CLI) | payer OTHER, MEDICAID ==
[2017-06-04 19:40] LABS: BASOPHILS # (AUTO) 0.1 10^3/uL (0.0-0.1); BASOPHILS % (AUTO) 0.4 %; EOSINOPHILS # (AUTO) 0.2 10^3/uL (0.0-0.7); EOSINOPHILS % (AUTO) 1.9 %; HCT - HEMATOCRIT 36.5 % (37.0-47.0); HGB - HEMOGLOBIN 11.8 g/dL (12.0-16.0); LYMPHOCYTES # (AUTO) 2.5 10^3/uL (1.5-3.5); LYMPHOCYTES % (AUTO) 21.3 %; MEAN CORPUSCULAR HGB CONC 32.4 g/dL (32.0-36.0); MEAN CORPUSCULAR VOLUME 83.4 fL (81.0-99.0); MEAN PLATELET VOLUME 7.5 fL (7.9-10.8); MONOCYTES # (AUTO) 0.9 10^3/uL (0.0-1.0); MONOCYTES % (AUTO) 7.9 %; NEUTROPHILS % (AUTO) 68.5 %; RED BLOOD COUNT 4.38 10^6/uL (4.20-5.40); RED CELL DISTRIBUTION WIDTH 13.6 % (12.0-15.0); UNCORRECTED WHITE BLOOD COUNT 11.8 x10^3/uL; WHITE BLOOD COUNT 11.8 x10^3/uL (4.8-10.8)
[2017-06-04 19:48] LABS: ALBUMIN/GLOBULIN RATIO 0.8 (1.0-2.2); BILIRUBIN,TOTAL 0.3 mg/dL (0.2-1.0); BUN - BLOOD UREA NITROGEN 11 mg/dL (6-20); CALCIUM 9.4 mg/dL (8.5-10.3); CARBON DIOXIDE - CO2 24 mmol/L (21-32); CHLORIDE 105 mmol/L (101-111); CREATININE 0.7 mg/dL (0.4-1.0); GFR - MDRD 108 (>89); GLUCOSE 96 mg/dL (70-100); POTASSIUM 4.3 mmol/L (3.5-5.0); SODIUM 136 mmol/L (135-145); TOTAL PROTEIN 7.2 g/dL (6.7-8.2)
[2017-06-04 19:52] LABS: HEMOGLOBIN A1C 0.38 g/dL
== END 2017-06-04 13:57 | disposition home or self-care (01) ==
LOC: LAB.WCP 13:56
PROVIDERS: ATTEND Family Medicine
DX: F31.9 Bipolar disorder, unspecified (principal); E66.01 Morbid (severe) obesity due to excess calories; Z79.899 Other long term (current) drug therapy
CPT/HCPCS: 36415; 80053; 80178; 83036; 84443; 85025

== ENCOUNTER 2017-06-05 22:22 | Emergency (ER) | payer OTHER, MEDICAID ==
--- NOTE | 2017-06-05 22:54 | ED Physician Documentation ---
PD HPI MHE - Stated complaint Stated Complaint: SI - Chief complaint Chief Complaint: MHE - History obtained from History obtained from: Patient - History of Present Illness Primary symptom: Suicidal ideation Timing - onset: Chronic Pain level max: 0 Pain level now: 0 Similar symptoms before: Diagnosis (depression, bipolar, mood d/o. anxiety) Recently seen: Other (saw her therapist today) - Additional information Additional information: Patient is a 21-year-old female with a long history of depression who states that she has been feeling more suicidal lately. States told her therapist today , but "they do not really care". She states that she only feels safe in a psychiatric hospital and wants to go back to a psychiatric hospital. She states that is the only place that the doctors care about her. She states every time that she believes she just wants to go back. She states that she was going to hang herself today and reportedly asked a staff member at [facility] to kill her today. States she feels "a little suicidal" currently. Has been having increased anxiety today as well. Review of Systems Ten Systems: 10 systems reviewed and negative Constitutional: denies: Fever, Chills Ears: denies: Ear pain Nose: denies: Rhinorrhea / runny nose, Congestion Throat: denies: Sore throat Cardiac: denies: Chest pain / pressure Respiratory: denies: Cough, Wheezing GI: denies: Abdominal Pain, Nausea, Vomiting, Diarrhea Skin: denies: Rash Musculoskeletal: denies: Neck pain, Back pain Neurologic: denies: Focal weakness, Numbness, Headache PD PAST MEDICAL HISTORY - Past Medical History Cardiovascular: None Respiratory: None Neuro: None Endocrine/Autoimmune: None GI: None RN UROLOGY: None : None HEENT: None Psych: Anxiety Musculoskeletal: None Derm: None - Past Surgical History Past Surgical History: No - Present Medications Home Medications: Ambulatory Orders Medication Instructions Recorded Confirmed ARIPiprazole [Abilify] 10 mg PO DAILY 04/21/17 04/21/17 Lamotrigine [Lamictal] 200 mg PO DAILY 04/21/17 04/21/17 Melatonin 3 mg PO DAILY 04/21/17 04/21/17 Trifluoperazine HCl 2 mg PO DAILY 04/21/17 04/21/17 - Allergies Allergies/Adverse Reactions: Allergies Allergy/AdvReac Type Severity Reaction Status Date / Time No Known Drug Allergies Allergy Verified 06/05/17 22:33 - Social History Does the pt smoke?: No Smoking Status: Never smoker Does the pt drink ETOH?: No Does the pt have substance abuse?: No - Immunizations Immunizations are current?: Yes - POLST Patient has POLST: No PD ED PE NORMAL - Vitals Vital signs reviewed: Yes - General General: Alert and oriented X 3, No acute distress, Well developed/nourished - HEENT HEENT: PERRL, Moist mucous membranes - Neck Neck: Supple, no meningeal sign - Cardiac Cardiac: RRR, Strong equal pulses - Respiratory Respiratory: No respiratory distress, Clear bilaterally - Abdomen Abdomen: Soft, Non tender, Non distended - Derm Derm: Warm and dry, No rash - Extremities Extremities: No edema - Neuro Neuro: Alert and oriented X 3 - Psych Psych: Normal mood, Normal affect Results - Vitals Vitals: Vital Signs - 24 hr 06/05/17 06/06/17 06/06/17 22:26 01:46 06:19 Temperature 36.5 C Heart Rate 122 H 96 83 Respiratory 17 16 18 Rate Blood Pressure 140/92 H 127/61 130/55 L O2 Saturation 98 96 98 Oxygen O2 Source Room air - Labs Labs: Laboratory Tests 06/05/17 06/05/17 06/06/17 23:00 23:00 00:10 WBC 15.1 H RBC 3.95 L Hgb 10.7 L Hct 32.0 L MCV 81.0 MCH 27.1 MCHC 33.5 RDW 13.9 Plt Count 338 MPV 6.7 L Neut # 9.8 H Lymph # 3.7 H [place] # 1.3 H Eos # 0.4 Baso # 0.0 Absolute Nucleated RBC 0.00 Nucleated RBCs 0.0 Sodium Potassium Chloride Carbon Dioxide Anion Gap BUN Creatinine Estimated GFR (MDRD) Glucose Calcium Total Bilirubin AST ALT Alkaline Phosphatase Total Protein Albumin Globulin Albumin/Globulin Ratio Lipase Urine Color YELLOW Urine Clarity HAZY Urine pH 6.0 Ur Specific [place] >=1.030 H Urine Protein NEGATIVE Urine Glucose (UA) NEGATIVE Urine Ketones NEGATIVE Urine Occult Blood TRACE-INTA Urine Nitrite NEGATIVE Urine Bilirubin NEGATIVE Urine Urobilinogen 0.2 (NORMAL) Ur Leukocyte Esterase MODERATE H Urine RBC 6-10 H Urine WBC 11-25 H Ur Squamous Epith Cells MOD Squamous H Urine Bacteria None Seen Ur Microscopic Review INDICATED Urine Culture Comments NOT INDICATED Urine HCG, Qual NEGATIVE Last Dose Date Last Dose Time Salicylates Urine Opiates Screen NEGATIVE Ur Oxycodone Screen NEGATIVE Urine Methadone Screen NEGATIVE Ur Propoxyphene Screen NEGATIVE Acetaminophen Ur Barbiturates Screen NEGATIVE Ur Tricyclics Screen NEGATIVE Ur Phencyclidine Scrn NEGATIVE Ur Amphetamine Screen NEGATIVE U Methamphetamines Scrn NEGATIVE U Benzodiazepines Scrn NEGATIVE [place] Urine Cocaine Screen NEGATIVE U Cannabinoids Screen NEGATIVE Ethyl Alcohol 06/06/17 06/06/17 00:10 00:10 WBC RBC Hgb Hct MCV MCH MCHC RDW Plt Count MPV Neut # Lymph # [place] # Eos # Baso # Absolute Nucleated RBC Nucleated RBCs Sodium 135 Potassium 4.1 Chloride 102 Carbon Dioxide 24 Anion Gap 9.0 BUN 13 Creatinine 0.7 Estimated GFR (MDRD) 108 Glucose 112 H Calcium 9.1 Total Bilirubin 0.2 AST 26 ALT 15 Alkaline Phosphatase 69 Total Protein 6.6 L Albumin 3.0 L Globulin 3.6 Albumin/Globulin Ratio 0.8 L Lipase 28 Urine Color Urine Clarity Urine pH Ur Specific [place] Urine Protein Urine Glucose (UA) Urine Ketones Urine Occult Blood Urine Nitrite Urine Bilirubin Urine Urobilinogen Ur Leukocyte Esterase Urine RBC Urine WBC Ur Squamous Epith Cells Urine Bacteria Ur Microscopic Review Urine Culture Comments Urine HCG, Qual Last Dose Date Not Reportable Last Dose Time Not Reportable Salicylates < 6.0 Urine Opiates Screen Ur Oxycodone Screen Urine Methadone Screen Ur Propoxyphene Screen Acetaminophen < 10 L Ur Barbiturates Screen Ur Tricyclics Screen Ur Phencyclidine Scrn Ur Amphetamine Screen U Methamphetamines Scrn U Benzodiazepines Scrn [place] 0.82 Urine Cocaine Screen U Cannabinoids Screen Ethyl Alcohol < 5.0 PD MEDICAL DECISION MAKING - ED course Complexity details: reviewed old records, reviewed results, considered differential, d/w patient ED course: Patient is a 21-year-old female with vague suicidal ideation. Wants to go voluntarily back to a mental health hospital. Social work not available tonight to aid in the placement process. We will have her evaluated by social work in the morning. She is calm and cooperative in the emergency department. Slept through the night. Patient turned over to the emergency department physician oncoming. This document was made in part using voice recognition software. While efforts are made to proofread this document, sound alike and grammatical errors may occur. Departure - Departure Clinical Impression: Mood disorder Bipolar affective disorder Qualifiers: Active/Remission status: currently active Current bipolar episode type: depressed Current episode severity: unspecified Qualified Code(s): F31.30 - Bipolar disorder, current episode depressed, mild or moderate severity, unspecified Condition: Stable
[2017-06-05 23:10] LABS: BILIRUBIN,URINE NEGATIVE (NEGATIVE)
[2017-06-05 23:15] LABS: HCG UR QUAL NEGATIVE; UA w/ MICROSCOPIC CHARGE YES
[2017-06-05 23:26] LABS: UR CULTURE IF IND NOT INDICATED
[2017-06-06 00:16] LABS: BASOPHILS % (AUTO) 0.3 %; EOSINOPHILS # (AUTO) 0.4 10^3/uL (0.0-0.7); EOSINOPHILS % (AUTO) 2.4 %; HGB - HEMOGLOBIN 10.7 g/dL (12.0-16.0); LYMPHOCYTES # (AUTO) 3.7 10^3/uL (1.5-3.5); LYMPHOCYTES % (AUTO) 24.3 %; MEAN CORPUSCULAR HEMOGLOBIN 27.1 pg (27.0-31.0); MEAN CORPUSCULAR HGB CONC 33.5 g/dL (32.0-36.0); MEAN PLATELET VOLUME 6.7 fL (7.9-10.8); MONOCYTES # (AUTO) 1.3 10^3/uL (0.0-1.0); MONOCYTES % (AUTO) 8.4 %; NEUTROPHILS # (AUTO) 9.8 10^3/uL (1.5-6.6); NEUTROPHILS % (AUTO) 64.6 %; RED BLOOD COUNT 3.95 10^6/uL (4.20-5.40); RED CELL DISTRIBUTION WIDTH 13.9 % (12.0-15.0); UNCORRECTED WHITE BLOOD COUNT 15.1 x10^3/uL; WHITE BLOOD COUNT 15.1 x10^3/uL (4.8-10.8)
[2017-06-06 00:32] LABS: ALBUMIN/GLOBULIN RATIO 0.8 (1.0-2.2); BILIRUBIN,TOTAL 0.2 mg/dL (0.2-1.0); BUN - BLOOD UREA NITROGEN 13 mg/dL (6-20); CALCIUM 9.1 mg/dL (8.5-10.3); CARBON DIOXIDE - CO2 24 mmol/L (21-32); CHLORIDE 102 mmol/L (101-111); CREATININE 0.7 mg/dL (0.4-1.0); GFR - MDRD 108 (>89); GLUCOSE 112 mg/dL (70-100); LIPASE 28 U/L (22-51); POTASSIUM 4.1 mmol/L (3.5-5.0); SALICYLATE < 6.0 mg/dL; SODIUM 135 mmol/L (135-145); TOTAL PROTEIN 6.6 g/dL (6.7-8.2)
[2017-06-06 00:39] LABS: ACETAMINOPHEN < 10 ug/mL (10-30)
[2017-06-06 12:21] VITALS: BP 117/54
--- NOTE | 2017-06-06 17:30 | ED Physician Documentation ---
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 : None HEENT: None Psych: Anxiety Musculoskeletal: None Derm: None - Past Surgical History Past Surgical History: No - Present Medications Home Medications: Ambulatory Orders Medication Instructions Recorded Confirmed ARIPiprazole [Abilify] 10 mg PO DAILY 04/21/17 04/21/17 Lamotrigine [Lamictal] 200 mg PO DAILY 04/21/17 04/21/17 Melatonin 3 mg PO DAILY 04/21/17 04/21/17 Trifluoperazine HCl 2 mg PO DAILY 04/21/17 04/21/17 - Allergies Allergies/Adverse Reactions: Allergies Allergy/AdvReac Type Severity Reaction Status Date / Time No Known Drug Allergies Allergy Verified 06/05/17 22:33 - Social History Does the pt smoke?: No Smoking Status: Never smoker Does the pt drink ETOH?: No Does the pt have substance abuse?: No - Immunizations Immunizations are current?: Yes - POLST Patient has POLST: No Results - Vitals Vitals: Vital Signs - 24 hr 06/05/17 06/06/17 06/06/17 22:26 01:46 06:19 Temperature 36.5 C Heart Rate 122 H 96 83 Respiratory 17 16 18 Rate Blood Pressure 140/92 H 127/61 130/55 L O2 Saturation 98 96 98 06/06/17 12:21 Temperature 36.2 C L Heart Rate 98 Respiratory 15 Rate Blood Pressure 117/54 L O2 Saturation 97 Oxygen O2 Source Room air - Labs Labs: Laboratory Tests 06/05/17 06/05/17 06/06/17 23:00 23:00 00:10 WBC 15.1 H RBC 3.95 L Hgb 10.7 L Hct 32.0 L MCV 81.0 MCH 27.1 MCHC 33.5 RDW 13.9 Plt Count 338 MPV 6.7 L Neut # 9.8 H Lymph # 3.7 H [place] # 1.3 H Eos # 0.4 Baso # 0.0 Absolute Nucleated RBC 0.00 Nucleated RBCs 0.0 Sodium Potassium Chloride Carbon Dioxide Anion Gap BUN Creatinine Estimated GFR (MDRD) Glucose Calcium Total Bilirubin AST ALT Alkaline Phosphatase Total Protein Albumin Globulin Albumin/Globulin Ratio Lipase Urine Color YELLOW Urine Clarity HAZY Urine pH 6.0 Ur Specific [place] >=1.030 H Urine Protein NEGATIVE Urine Glucose (UA) NEGATIVE Urine Ketones NEGATIVE Urine Occult Blood TRACE-INTA Urine Nitrite NEGATIVE Urine Bilirubin NEGATIVE Urine Urobilinogen 0.2 (NORMAL) Ur Leukocyte Esterase MODERATE H Urine RBC 6-10 H Urine WBC 11-25 H Ur Squamous Epith Cells MOD Squamous H Urine Bacteria None Seen Ur Microscopic Review INDICATED Urine Culture Comments NOT INDICATED Urine HCG, Qual NEGATIVE Last Dose Date Last Dose Time Salicylates Urine Opiates Screen NEGATIVE Ur Oxycodone Screen NEGATIVE Urine Methadone Screen NEGATIVE Ur Propoxyphene Screen NEGATIVE Acetaminophen Ur Barbiturates Screen NEGATIVE Ur Tricyclics Screen NEGATIVE Ur Phencyclidine Scrn NEGATIVE Ur Amphetamine Screen NEGATIVE U Methamphetamines Scrn NEGATIVE U Benzodiazepines Scrn NEGATIVE [place] Urine Cocaine Screen NEGATIVE U Cannabinoids Screen NEGATIVE Ethyl Alcohol 06/06/17 06/06/17 00:10 00:10 WBC RBC Hgb Hct MCV MCH MCHC RDW Plt Count MPV Neut # Lymph # [place] # Eos # Baso # Absolute Nucleated RBC Nucleated RBCs Sodium 135 Potassium 4.1 Chloride 102 Carbon Dioxide 24 Anion Gap 9.0 BUN 13 Creatinine 0.7 Estimated GFR (MDRD) 108 Glucose 112 H Calcium 9.1 Total Bilirubin 0.2 AST 26 ALT 15 Alkaline Phosphatase 69 Total Protein 6.6 L Albumin 3.0 L Globulin 3.6 Albumin/Globulin Ratio 0.8 L Lipase 28 Urine Color Urine Clarity Urine pH Ur Specific [place] Urine Protein Urine Glucose (UA) Urine Ketones Urine Occult Blood Urine Nitrite Urine Bilirubin Urine Urobilinogen Ur Leukocyte Esterase Urine RBC Urine WBC Ur Squamous Epith Cells Urine Bacteria Ur Microscopic Review Urine Culture Comments Urine HCG, Qual Last Dose Date Not Reportable Last Dose Time Not Reportable Salicylates < 6.0 Urine Opiates Screen Ur Oxycodone Screen Urine Methadone Screen Ur Propoxyphene Screen Acetaminophen < 10 L Ur Barbiturates Screen Ur Tricyclics Screen Ur Phencyclidine Scrn Ur Amphetamine Screen U Methamphetamines Scrn U Benzodiazepines Scrn [place] 0.82 Urine Cocaine Screen U Cannabinoids Screen Ethyl Alcohol < 5.0 PD MEDICAL DECISION MAKING - ED course Complexity details: reviewed old records, considered differential, d/w patient ED course: 21-year-old female with a history of bipolar affect disorderIs feeling suicidal beginning yesterday she feels somewhat improved today the patient has been cleared medically by Dr. Blanca and she is preparing to go to a crisis respite bed today by [facility]. The case management social worker was able to make arrangements. The patient indicates that she cycles and periodically will have suicidal ideation. Departure - Departure Disposition: 01 Home, Self Care Clinical Impression: Mood disorder Bipolar disorder Qualifiers: Active/Remission status: currently active Current bipolar episode type: depressed Current episode severity: unspecified Qualified Code(s): F31.30 - Bipolar disorder, current episode depressed, mild or moderate severity, unspecified Condition: Stable Instructions: ED Manic Depression Follow-Up: Jennifer Andrea DO [Primary Care Provider] - Comments: Follow up at crisis respite as planned today.
== END 2017-06-06 17:55 | disposition home or self-care (01) ==
LOC: ED 22:22
DX: F31.30 Bipolar disorder, current episode depressed, mild or moderate severity, unspecified (principal); R45.851 Suicidal ideations
CPT/HCPCS: 36415; 80053; 80178; 80306; 80307; 80320; 80329; 81001; 81003; 81025; 83690; 85025; 87086; 99283; 99285

== ENCOUNTER 2017-08-10 05:39 | Day surgery (SDC) | payer BC, MEDICAID ==
[2017-08-10] MEDS ORDERED: ceFAZolin 2 GM/50 ML 2 GM/50 ML BAG IV ONE (06:34)
[2017-08-10 06:44] LABS: HCG UR QUAL NEGATIVE
[2017-08-10] MEDS ORDERED: LACTATED RINGERS 1,000 ML IV ONE ×2 (06:52→09:31)
[2017-08-10] MEDS ORDERED: ONDANSETRON 4 MG/2 ML VIAL IVP ONE (09:00)
[2017-08-10] MEDS ORDERED: MIDAZOLAM 2 MG/2 ML VIAL IVP ONE (09:00)
[2017-08-10] MEDS ORDERED: KETAMINE 500 MG/10 ML VIAL IVP ONE (09:00)
[2017-08-10] MEDS ORDERED: ROCURONIUM 50 MG/5 ML VIAL IVP ONE (09:00)
[2017-08-10] MEDS ORDERED: fentaNYL 100 MCG/2 ML VIAL IVP ONE (09:00)
[2017-08-10] MEDS ORDERED: DEXAMETHASONE 4 MG/ML VIAL IVP ONE (09:00)
[2017-08-10] MEDS ORDERED: PROPOFOL 200 MG/20 ML VIAL IVP ONE (09:00)
[2017-08-10] MEDS ORDERED: NEOSTIGMINE 1 MG/1 ML 10 ML MDV IVP ONE (09:00)
[2017-08-10] MEDS ORDERED: ceFAZolin 1 GM VIAL IV ONE (09:00)
[2017-08-10] MEDS ORDERED: GLYCOPYRROLATE 1 MG/5 ML VIAL IVP ONE (09:00)
[2017-08-10] MEDS ORDERED: ACETAMINOPHEN 1,000 MG/100 ML 100 ML IV ONE (09:00)
[2017-08-10] MEDS ORDERED: HYDROmorphone 1 MG/ML SYRINGE IM ONE (09:00)
[2017-08-10] MEDS ORDERED: LIDOCAINE-MPF 2% 5 ML VIAL IM ONE (09:00)
[2017-08-10] MEDS ORDERED: BUPIVACAINE 0.25%-EPI 1:200000 PF 30 ML VIAL SUBQ ONE (09:40)
[2017-08-10] MEDS ORDERED: HYDROmorphone 1 MG/ML SYRINGE ONE (10:28)
--- NOTE | 2017-08-10 10:28 | OPERATIVE REPORT ---
DATE OF SURGERY: 08/10/2017 00:00:00 PREOPERATIVE DIAGNOSIS: biliary colic POSTOPERATIVE DIAGNOSIS:same NAME OF PROCEDURE: Laparoscopic cholecystectomy and core needle biopsy. SURGEON: Catalina Millard MD ANESTHESIA: AMY Zamora INDICATION FOR PROCEDURE: This is a 22-year-old morbidly obese female with a BMI of 50 and a history of biliary colic presenting for elective laparoscopic cholecystectomy. Her LFTs were noted to be normal preoperatively. FINDINGS: After obtaining informed consent from the patient, she was brought into the operating room and positioned on the operating table in the supine position, taking note of pressure points. Secondary to her body habitus, a foot board was placed and the patient was well secured to the table. She was intubated by Anesthesia. She was administered 3 grams of Ancef. She was prepped and draped in the usual sterile fashion and a time-out was taken according to protocol. An infraumbilical 1 cm incision was created and deepened down to the umbilical stalk. This was grasped, elevated, and the Veress needle inserted, and the abdominal cavity insufflated. A 5 mm incision was created in the epigastric region, and using the Optiview view trocar the abdominal cavity was entered. Veress needle was then exchanged for a 12 mm port. Two additional 5 mm ports were placed along the right lateral abdominal wall. The gallbladder was noted to be distended and the liver enlarged and fatty in appearance. It was grasped and retracted over the dome of the liver. The gallbladder was also noted to be intrahepatic and again, secondary to the patient's body habitus, visualization of the cystic duct and artery were somewhat difficult. The patient was positioned in steep reverse Trendelenburg with the right side elevated. The base of the gallbladder was retracted medially exposing the lateral attachments and these were divided working my way anteriorly, exposing the cystic duct and then worked my way medially exposing the cystic artery. Cystic duct was circumferentially dissected from surrounding fatty tissue.Visualization was somewhat compromised due to difficulty retracting the gallbladder over the enlarged fatty liver. Eventually, I was able to completely circumferentially dissect out the cystic duct. Two clips were placed proximally , one distally, and the duct was divided. The cystic artery was also dissected in a similar manner with 2 clips placed proximally, 1 distally, and divided. A posterior branch of the cystic artery was also noted and this was clipped and divided. The gallbladder was then removed from the gallbladder fossa with electrocautery. There was no spillage of bile or stones during this process. The gallbladder was then placed in a specimen bag and was withdrawn from the umbilical port after extending the port to accommodate the enlarged gallbladder. The liver bed was inspected and there were no signs of bleeding. Due to the appearance of hepatomegaly, a core needle biopsy of the liver was performed using the automatic Aditya-Cut needle biopsy device. Hemostasis was then achieved with electrocautery. The umbilical port was then closed with the Javy -Gato device with 0 Vicryl in a [id number] fashion and 30 mL of local anesthetic was infiltrated into the incisions. The abdominal cavity was desufflated and all ports were removed. The skin incisions were closed with 4-0 Monocryl. Dermabond was applied to the incisions. The patient was subsequently extubated and taken to recovery room in stable condition. ESTIMATED BLOOD LOSS: Minimal. COMPLICATIONS: None. SPECIMENS: Gallbladder. JOB #: [id number] EXT JOB #:[id number] DOMITILA
[2017-08-10] MEDS ORDERED: ONDANSETRON 4 MG/2 ML VIAL ONE (11:07)
[2017-08-10 12:33] VITALS: BP 148/109
== END 2017-08-10 05:40 | disposition home or self-care (01) ==
LOC: SDS 05:39
PROVIDERS: ATTEND Surgery
PROC: 0FB03ZX Excision of Liver, Percutaneous Approach, Diagnostic (ICD-10-PCS; 2017-08-10)
PROC: 0FT44ZZ Resection of Gallbladder, Percutaneous Endoscopic Approach (ICD-10-PCS; principal; 2017-08-10 07:30)
DX: K80.12 Calculus of gallbladder with acute and chronic cholecystitis without obstruction (principal); K76.0 Fatty (change of) liver, not elsewhere classified; I10 Essential (primary) hypertension
CPT/HCPCS: 47000; 47562; 81025; J0131; J0690; J1170; J7120

== ENCOUNTER 2017-09-16 21:10 | Emergency (ER) | payer BC, MEDICAID ==
[2017-09-16 21:39] LABS: MUDS CUTOFF CONCENTRATIONS CUTOFF CONC BELOW:
--- NOTE | 2017-09-16 21:41 | ED Physician Documentation ---
PD HPI MHE - Stated complaint Stated Complaint: SI - Chief complaint Chief Complaint: MHE - History obtained from History obtained from: Patient, Caregiver - History of Present Illness Primary symptom: Suicidal ideation, Depression Timing - onset: Chronic Similar symptoms before: Work up / diagnostics, Treatment Recently seen: Not recently seen - Additional information Additional information: patient is a 22 year old female with a history of depression who is presenting to the emergency department for depression and suicidal ideation. Patient states that tonight there was no specific changed but she wanted to . patient states that she would have overdosed on her tylenol. patient is presenting with case resource manager who stated that they called [employer] and did the intake with them but there would need to wait until tomorrow after being evaluated after social work. Patient denies taking any medications today. Review of Systems Constitutional: denies: Fever, Chills Eyes: denies: Decreased vision, Photophobia Ears: reports: Reviewed and negative Nose: reports: Reviewed and negative Throat: reports: Reviewed and negative Cardiac: denies: Chest pain / pressure, Palpitations Respiratory: denies: Dyspnea, Cough, Wheezing GI: denies: Nausea, Vomiting : reports: Reviewed and negative Skin: reports: Reviewed and negative Musculoskeletal: reports: Reviewed and negative Neurologic: denies: Confused, Altered mental status, Headache, Head injury Psychiatric: reports: Depressed, Suicidal. 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 : None HEENT: None Psych: Depression, Anxiety, Bipolar disorder, Panic attacks, Post traumatic stress disorder, Other Musculoskeletal: None Derm: None - Past Surgical History Past Surgical History: No - Present Medications Home Medications: Ambulatory Orders Medication Instructions Recorded Confirmed Bupropion HCl [Bupropion Xl] 150 mg PO DAILY 07/30/17 09/16/17 Ethinyl Estradiol/Drospirenone 1 each PO DAILY 07/30/17 09/16/17 [[place]uma 28 Tablet] Hydroxyzine Pamoate [Vistaril] 50 mg PO BID 07/30/17 09/16/17 [place] Carbonate 3 cap PO DAILY PM 07/30/17 09/16/17 lamoTRIgine [LaMICtal] 300 mg PO DAILY PM 07/30/17 09/16/17 risperiDONE [Risperdal] 1 mg PO DAILY 07/30/17 09/16/17 risperiDONE [Risperdal] 2 mg PO DAILY PM 07/30/17 09/16/17 traZODone [Desyrel] 50 mg PO HS 07/30/17 09/16/17 - Allergies Allergies/Adverse Reactions: Allergies Allergy/AdvReac Type Severity Reaction Status Date / Time No Known Drug Allergies Allergy Verified 09/16/17 21:13 - Social History Does the pt smoke?: No Smoking Status: Never smoker Does the pt drink ETOH?: No Does the pt have substance abuse?: No - Immunizations Immunizations are current?: Yes - POLST Patient has POLST: No PD ED PE NORMAL - Vitals Vital signs reviewed: Yes - General General: Alert and oriented X 3, No acute distress - HEENT HEENT: Atraumatic, PERRL, Moist mucous membranes - Neck Neck: Supple, no meningeal sign - Cardiac Cardiac: RRR, No murmur - Respiratory Respiratory: No respiratory distress - Abdomen Abdomen: Soft - Derm Derm: Normal color, No rash - Extremities Extremities: No deformity, Normal ROM s pain, No calf tenderness / cord - Neuro Neuro: Alert and oriented X 3, No motor deficit, No sensory deficit, Normal speech Eye Opening: Spontaneous Motor: Obeys Commands Verbal: Oriented GCS Score: 15 PD ED PE EXPANDED - Psych Psych: Depressed, Suicidal Results - Vitals Vitals: Vital Signs - 24 hr 09/16/17 21:14 Temperature 36.2 C L Heart Rate 114 H Respiratory 18 Rate Blood Pressure 144/106 H O2 Saturation 100 Oxygen O2 Source Room air - Labs Labs: Laboratory Tests 09/16/17 09/16/17 09/16/17 21:25 21:25 21:35 WBC 11.8 H RBC 4.74 Hgb 12.6 Hct 38.5 MCV 81.3 MCH 26.5 L MCHC 32.7 RDW 15.3 H Plt Count 352 MPV 6.8 L Neut # 6.6 Lymph # 3.6 H [place] # 1.1 H Eos # 0.4 Baso # 0.1 Absolute Nucleated RBC 0.01 Nucleated RBC % 0.1 Sodium Potassium Chloride Carbon Dioxide Anion Gap BUN Creatinine Estimated GFR (MDRD) Glucose Calcium Total Bilirubin AST ALT Alkaline Phosphatase Total Protein Albumin Globulin Albumin/Globulin Ratio Lipase Ur Specific [place] 1.020 Urine HCG, Qual NEGATIVE Salicylates Urine Opiates Screen NEGATIVE Ur Oxycodone Screen NEGATIVE Urine Methadone Screen NEGATIVE Ur Propoxyphene Screen NEGATIVE Acetaminophen Ur Barbiturates Screen NEGATIVE Ur Tricyclics Screen NEGATIVE Ur Phencyclidine Scrn NEGATIVE Ur Amphetamine Screen NEGATIVE U Methamphetamines Scrn NEGATIVE U Benzodiazepines Scrn NEGATIVE Urine Cocaine Screen NEGATIVE U Cannabinoids Screen NEGATIVE Ethyl Alcohol 09/16/17 21:35 WBC RBC Hgb Hct MCV MCH MCHC RDW Plt Count MPV Neut # Lymph # [place] # Eos # Baso # Absolute Nucleated RBC Nucleated RBC % Sodium 136 Potassium 3.5 Chloride 104 Carbon Dioxide 23 Anion Gap 9.0 BUN 8 Creatinine 0.8 Estimated GFR (MDRD) 91 Glucose 100 Calcium 8.7 Total Bilirubin 0.3 AST 19 ALT 15 Alkaline Phosphatase 88 Total Protein 7.2 Albumin 3.2 Globulin 4.0 Albumin/Globulin Ratio 0.8 L Lipase 20 L Ur Specific [place] Urine HCG, Qual Salicylates < 6.0 Urine Opiates Screen Ur Oxycodone Screen Urine Methadone Screen Ur Propoxyphene Screen Acetaminophen < 10 L Ur Barbiturates Screen Ur Tricyclics Screen Ur Phencyclidine Scrn Ur Amphetamine Screen U Methamphetamines Scrn U Benzodiazepines Scrn Urine Cocaine Screen U Cannabinoids Screen Ethyl Alcohol < 5.0 PD MEDICAL DECISION MAKING - ED course Complexity details: reviewed old records, reviewed results, re-evaluated patient , considered differential, d/w patient ED course: Patient was seen and examined at bedside. patient was calm and cooperative. labs were drawn and urine was collected. manager licensing was at bedside and stated that they had already talked to [facility] and the plan would be to go there tomorrow morning. Patient's diagnostic were all within normal limits. Patient was medically cleared and signed over to the morning physician pending social work evaluation and placement. Departure - Departure Clinical Impression: Suicidal ideation, Depression Condition: Stable
[2017-09-16 21:43] LABS: HCG UR QUAL NEGATIVE
[2017-09-16 21:44] LABS: BASOPHILS # (AUTO) 0.1 10^3/uL (0.0-0.1); BASOPHILS % (AUTO) 0.6 %; EOSINOPHILS # (AUTO) 0.4 10^3/uL (0.0-0.7); EOSINOPHILS % (AUTO) 3.7 %; HGB - HEMOGLOBIN 12.6 g/dL (12.0-16.0); LYMPHOCYTES # (AUTO) 3.6 10^3/uL (1.5-3.5); LYMPHOCYTES % (AUTO) 30.7 %; MEAN CORPUSCULAR HEMOGLOBIN 26.5 pg (27.0-31.0); MEAN CORPUSCULAR HGB CONC 32.7 g/dL (32.0-36.0); MEAN CORPUSCULAR VOLUME 81.3 fL (81.0-99.0); MEAN PLATELET VOLUME 6.8 fL (7.9-10.8); MONOCYTES # (AUTO) 1.1 10^3/uL (0.0-1.0); MONOCYTES % (AUTO) 9.5 %; NEUTROPHILS # (AUTO) 6.6 10^3/uL (1.5-6.6); NEUTROPHILS % (AUTO) 55.5 %; PLT - PLATELET COUNT 352 10^3/uL (130-450); RED BLOOD COUNT 4.74 10^6/uL (4.20-5.40); RED CELL DISTRIBUTION WIDTH 15.3 % (12.0-15.0); WHITE BLOOD COUNT 11.8 x10^3/uL (4.8-10.8)
[2017-09-16 21:52] LABS: AMPHETAMINE SCREEN,URINE NEGATIVE (NEGATIVE); BENZODIAZEPINES SCREEN, URINE NEGATIVE (NEGATIVE); COCAINE SCREEN URINE NEGATIVE (NEGATIVE); METHADONE SCREEN, URINE NEGATIVE (NEGATIVE); METHAMPHETAMINES SCREEN, URINE NEGATIVE (NEGATIVE); OPIATE SCREEN, URINE NEGATIVE (NEGATIVE); OXYCODONE SCREEN, URINE NEGATIVE (NEGATIVE); PROPOXYPHENE SCREEN, URINE NEGATIVE (NEGATIVE); TRICYCLIC ANTIDEPRESSANT,URINE NEGATIVE (NEGATIVE)
[2017-09-16 21:58] LABS: ALBUMIN 3.2 g/dL (3.2-5.5); ALBUMIN/GLOBULIN RATIO 0.8 (1.0-2.2); ALKALINE PHOSPHATASE 88 IU/L (42-121); ALT ALANINE AMINOTRANSFERASE 15 IU/L (10-60); AST ASPARTATE AMINOTRANSFERASE 19 IU/L (10-42); BILIRUBIN,TOTAL 0.3 mg/dL (0.2-1.0); BUN - BLOOD UREA NITROGEN 8 mg/dL (6-20); CALCIUM 8.7 mg/dL (8.5-10.3); CARBON DIOXIDE - CO2 23 mmol/L (21-32); CHLORIDE 104 mmol/L (101-111); CREATININE 0.8 mg/dL (0.4-1.0); GFR - MDRD 91 (>89); GLUCOSE 100 mg/dL (70-100); LIPASE 20 U/L (22-51); SALICYLATE < 6.0 mg/dL; SODIUM 136 mmol/L (135-145); TOTAL PROTEIN 7.2 g/dL (6.7-8.2)
[2017-09-16 22:01] LABS: ACETAMINOPHEN < 10 ug/mL (10-30)
--- NOTE | 2017-09-17 08:24 | ED Physician Documentation ---
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 : None HEENT: None Psych: Depression, Anxiety, Bipolar disorder, Panic attacks, Post traumatic stress disorder, Other Musculoskeletal: None Derm: None - Past Surgical History Past Surgical History: No - Present Medications Home Medications: Ambulatory Orders Medication Instructions Recorded Confirmed Bupropion HCl [Bupropion Xl] 150 mg PO DAILY 07/30/17 09/16/17 Ethinyl Estradiol/Drospirenone 1 each PO DAILY 07/30/17 09/16/17 [Huma 28 Tablet] Hydroxyzine Pamoate [Vistaril] 50 mg PO BID 07/30/17 09/16/17 [place] Carbonate 3 cap PO DAILY PM 07/30/17 09/16/17 lamoTRIgine [LaMICtal] 300 mg PO DAILY PM 07/30/17 09/16/17 risperiDONE [Risperdal] 1 mg PO DAILY 07/30/17 09/16/17 risperiDONE [Risperdal] 2 mg PO DAILY PM 07/30/17 09/16/17 traZODone [Desyrel] 50 mg PO HS 07/30/17 09/16/17 - Allergies Allergies/Adverse Reactions: Allergies Allergy/AdvReac Type Severity Reaction Status Date / Time No Known Drug Allergies Allergy Verified 09/16/17 21:13 - Social History Does the pt smoke?: No Smoking Status: Never smoker Does the pt drink ETOH?: No Does the pt have substance abuse?: No - Immunizations Immunizations are current?: Yes - POLST Patient has POLST: No Results - Vitals Vitals: Vital Signs - 24 hr 09/16/17 09/16/17 09/17/17 21:14 23:49 06:22 Temperature 36.2 C L 36.7 C 36.6 C Heart Rate 114 H 112 H 90 Respiratory 18 20 20 Rate Blood Pressure 144/106 H 134/81 H 121/75 O2 Saturation 100 97 97 09/17/17 09/17/17 18:19 18:42 Temperature 37.2 C Heart Rate 118 H 104 H Respiratory 18 17 Rate Blood Pressure 141/81 H O2 Saturation 97 Oxygen O2 Source Room air - Labs Labs: Laboratory Tests 09/16/17 09/16/17 09/16/17 21:25 21:25 21:35 WBC 11.8 H RBC 4.74 Hgb 12.6 Hct 38.5 MCV 81.3 MCH 26.5 L MCHC 32.7 RDW 15.3 H Plt Count 352 MPV 6.8 L Neut # 6.6 Lymph # 3.6 H [place] # 1.1 H Eos # 0.4 Baso # 0.1 Absolute Nucleated RBC 0.01 Nucleated RBC % 0.1 Sodium Potassium Chloride Carbon Dioxide Anion Gap BUN Creatinine Estimated GFR (MDRD) Glucose Calcium Total Bilirubin AST ALT Alkaline Phosphatase Total Protein Albumin Globulin Albumin/Globulin Ratio Lipase Ur Specific [place] 1.020 Urine HCG, Qual NEGATIVE Last Dose Date Last Dose Time Salicylates Urine Opiates Screen NEGATIVE Ur Oxycodone Screen NEGATIVE Urine Methadone Screen NEGATIVE Ur Propoxyphene Screen NEGATIVE Acetaminophen Ur Barbiturates Screen NEGATIVE Ur Tricyclics Screen NEGATIVE Ur Phencyclidine Scrn NEGATIVE Ur Amphetamine Screen NEGATIVE U Methamphetamines Scrn NEGATIVE U Benzodiazepines Scrn NEGATIVE [place] Urine Cocaine Screen NEGATIVE U Cannabinoids Screen NEGATIVE Ethyl Alcohol 09/16/17 09/17/17 21:35 09:05 WBC RBC Hgb Hct MCV MCH MCHC RDW Plt Count MPV Neut # Lymph # [place] # Eos # Baso # Absolute Nucleated RBC Nucleated RBC % Sodium 136 Potassium 3.5 Chloride 104 Carbon Dioxide 23 Anion Gap 9.0 BUN 8 Creatinine 0.8 Estimated GFR (MDRD) 91 Glucose 100 Calcium 8.7 Total Bilirubin 0.3 AST 19 ALT 15 Alkaline Phosphatase 88 Total Protein 7.2 Albumin 3.2 Globulin 4.0 Albumin/Globulin Ratio 0.8 L Lipase 20 L Ur Specific [place] Urine HCG, Qual Last Dose Date 09/16/17 Last Dose Time Unknown Salicylates < 6.0 Urine Opiates Screen Ur Oxycodone Screen Urine Methadone Screen Ur Propoxyphene Screen Acetaminophen < 10 L Ur Barbiturates Screen Ur Tricyclics Screen Ur Phencyclidine Scrn Ur Amphetamine Screen U Methamphetamines Scrn U Benzodiazepines Scrn [place] 0.09 Urine Cocaine Screen U Cannabinoids Screen Ethyl Alcohol < 5.0 PD MEDICAL DECISION MAKING - ED course ED course: assumed care 7 AM 22 female 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 for 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 SO with plan no attempt medically cleared by shift supervisor melting per shift supervisor melting kenny fairchild has a bed for her but waiting for provider to come on shift in AM to review case and approve admit went to see pt - she is eating breakfast, confirms no harm committed / no OD etc , has been sick with congestion etc, awake alert RRR CTAb nasal congestion added on lithium level which was subtherapeutic awaiting SW to place pt SW eventually got confirmation from [place] but not until evening VSwere done about 6 PM and pt was tachy 118 but I was not advised when BLS transport arrived about 650 her HR was 104 and at that point I was asked by nursing to eval the pt after she was already on the ambulance [facility] packaged and ready for transport I went to see the pt, her HR is about 100-110, she has no murmur, she is afebrile and does not appear ill so doubt sepsis she has no complaints except for nasal congestion - no fever CP dyspnea etc, no tachypneic or hypoxic so doubt PE I asked yet again and she confirms yet again that she did not OD last night - her tox screen was neg she states she does not drink or take benzos so doubt withdrawal she was not anemic she does not appear particularly anxious I am not sure why her HR is up again but given her benign exam and normal labs i think she is still safe for transfer to mental health S departed with pt Departure - Departure Disposition: 65 Psych Hosp/Unit DC/Xfer Clinical Impression: Suicidal ideation, Depression Condition: Stable Discharge Date/Time: 09/17/17 18:50
[2017-09-17 10:58] LABS: LITHIUM 0.09 mmol/L
[2017-09-17 18:19] VITALS: BP 141/81
== END 2017-09-17 18:50 ==
LOC: ED 21:10
DX: R45.851 Suicidal ideations (principal); F32.9 Major depressive disorder, single episode, unspecified
CPT/HCPCS: 36415; 80048; 80053; 80178; 80306; 80307; 80320; 80329; 81025; 83690; 85025; 99284

== ENCOUNTER 2017-10-29 11:41 | Emergency (ER) | payer BC, MEDICAID ==
--- NOTE | 2017-10-29 12:12 | ED Physician Documentation ---
PD HPI MHE - Stated complaint Stated Complaint: MHE - Chief complaint Chief Complaint: MHE - History obtained from History obtained from: Patient - History of Present Illness Primary symptom: Suicidal ideation, Depression Timing - onset: How many days ago (several days of feeling anxious and suicidal. Seen by counselor today and brought to ED for evaluation.) Contributing factors: No: Substance abuse - ETOH, Substance abuse - drugs Similar symptoms before: Diagnosis (bipolar and suicidality. 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 : None HEENT: None Psych: Depression, Anxiety, Bipolar disorder, Panic attacks, Post traumatic stress disorder, Other Musculoskeletal: None Derm: None - Past Surgical History Past Surgical History: No General: Cholecystectomy - Present Medications Home Medications: Ambulatory Orders Medication Instructions Recorded Confirmed Bupropion HCl [Bupropion Xl] 150 mg PO DAILY 07/30/17 10/29/17 Ethinyl Estradiol/Drospirenone 1 each PO DAILY 07/30/17 10/29/17 [Huma 28 Tablet] Hydroxyzine Pamoate [Vistaril] 50 mg PO BID 07/30/17 10/29/17 [place] Carbonate 3 cap PO DAILY PM 07/30/17 10/29/17 lamoTRIgine [LaMICtal] 300 mg PO DAILY PM 07/30/17 10/29/17 risperiDONE [Risperdal] 1 mg PO DAILY 07/30/17 10/29/17 risperiDONE [Risperdal] 2 mg PO DAILY PM 07/30/17 10/29/17 traZODone [Desyrel] 50 mg PO HS 07/30/17 10/29/17 Nitrofurantoin Monohyd/M-Cryst 100 mg PO BID #14 capsule 10/29/17 [Macrobid 100 mg Capsule] - Allergies Allergies/Adverse Reactions: Allergies Allergy/AdvReac Type Severity Reaction Status Date / Time No Known Drug Allergies Allergy Verified 09/16/17 21:13 - Social History Does the pt smoke?: No Smoking Status: Never smoker Does the pt drink ETOH?: No Does the pt have substance abuse?: No - Immunizations Immunizations are current?: Yes - POLST Patient has POLST: No PD ED PE NORMAL - Vitals Vital signs reviewed: Yes - General General: Alert and oriented X 3, No acute distress, Well developed/nourished - HEENT HEENT: Moist mucous membranes, Pharynx benign - Neck Neck: Supple, no meningeal sign, No adenopathy - Cardiac Cardiac: RRR, No murmur - Respiratory Respiratory: Clear bilaterally - Abdomen Abdomen: Soft, Non tender - Female Female : Deferred - Rectal Rectal: Deferred - Back Back: No CVA TTP - Derm Derm: Normal color - Extremities Extremities: No deformity, No tenderness to palpate - Neuro Neuro: Alert and oriented X 3, No motor deficit, Normal speech Eye Opening: Spontaneous Motor: Obeys Commands Verbal: Oriented GCS Score: 15 - Psych Psych: Normal mood Results - Vitals Vitals: Vital Signs - 24 hr 10/29/17 19:09 Temperature 36.3 C L Heart Rate 115 H Respiratory 17 Rate Blood Pressure 153/95 H O2 Saturation 99 Oxygen O2 Source Room air - Labs Labs: Laboratory Tests 10/29/17 10/29/17 10/29/17 12:43 12:43 12:43 WBC 10.9 H RBC 4.64 Hgb 12.4 Hct 38.2 MCV 82.3 MCH 26.8 L MCHC 32.5 RDW 15.0 Plt Count 370 MPV 6.8 L Neut # 7.3 H Lymph # 2.4 [place] # 0.8 Eos # 0.2 Baso # 0.1 Absolute Nucleated RBC 0.00 Nucleated RBC % 0.0 Sodium 136 Potassium 4.1 Chloride 104 Carbon Dioxide 21 Anion Gap 11.0 BUN 7 Creatinine 0.8 Estimated GFR (MDRD) 91 Glucose 101 H Calcium 9.3 Total Bilirubin 0.5 AST 24 ALT 18 Alkaline Phosphatase 71 Total Protein 7.0 Albumin 3.2 Globulin 3.8 Albumin/Globulin Ratio 0.8 L Lipase 12 L TSH 2.82 Urine Color Urine Clarity Urine pH Ur Specific [place] Urine Protein Urine Glucose (UA) Urine Ketones Urine Occult Blood Urine Nitrite Urine Bilirubin Urine Urobilinogen Ur Leukocyte Esterase Urine RBC Urine WBC Ur Squamous Epith Cells Urine Bacteria Ur Microscopic Review Urine Culture Comments Urine HCG, Qual Last Dose Date Last Dose Time Salicylates < 6.0 Urine Opiates Screen Ur Oxycodone Screen Urine Methadone Screen Ur Propoxyphene Screen Acetaminophen < 10 L Ur Barbiturates Screen Ur Tricyclics Screen Ur Phencyclidine Scrn Ur Amphetamine Screen U Methamphetamines Scrn U Benzodiazepines Scrn [place] Urine Cocaine Screen U Cannabinoids Screen 10/29/17 10/29/17 10/29/17 12:46 12:46 13:02 WBC RBC Hgb Hct MCV MCH MCHC RDW Plt Count MPV Neut # Lymph # [place] # Eos # Baso # Absolute Nucleated RBC Nucleated RBC % Sodium Potassium Chloride Carbon Dioxide Anion Gap BUN Creatinine Estimated GFR (MDRD) Glucose Calcium Total Bilirubin AST ALT Alkaline Phosphatase Total Protein Albumin Globulin Albumin/Globulin Ratio Lipase TSH Urine Color YELLOW Urine Clarity HAZY Urine pH 7.5 Ur Specific [place] 1.015 1.015 Urine Protein NEGATIVE Urine Glucose (UA) NEGATIVE Urine Ketones NEGATIVE Urine Occult Blood NEGATIVE Urine Nitrite NEGATIVE Urine Bilirubin NEGATIVE Urine Urobilinogen 0.2 (NORMAL) Ur Leukocyte Esterase MODERATE H Urine RBC None Seen Urine WBC 11-25 H Ur Squamous Epith Cells MOD Squamous H Urine Bacteria Moderate H Ur Microscopic Review INDICATED Urine Culture Comments NOT INDICATED Urine HCG, Qual NEGATIVE Last Dose Date UNKNOWN Last Dose Time UNKNOWN Salicylates Urine Opiates Screen NEGATIVE Ur Oxycodone Screen NEGATIVE Urine Methadone Screen NEGATIVE Ur Propoxyphene Screen NEGATIVE Acetaminophen Ur Barbiturates Screen NEGATIVE Ur Tricyclics Screen NEGATIVE Ur Phencyclidine Scrn NEGATIVE Ur Amphetamine Screen NEGATIVE U Methamphetamines Scrn NEGATIVE U Benzodiazepines Scrn NEGATIVE [place] 0.73 Urine Cocaine Screen NEGATIVE U Cannabinoids Screen NEGATIVE PD MEDICAL DECISION MAKING - ED course Complexity details: reviewed results, re-evaluated patient (arrangements made by PEREZ to have patient go to [facility] (Nearest available with opening). Patient okay with that. Taxi arranged by PEREZ. ), considered differential, d/w patient, d/w recruitment consultant (electrode cleaner, who also consulted with the patient's usual counselor. Feeling that safe place is adequate and did not need hospitalization per se. Patient feels this way as well. ) Departure - Departure Disposition: [facility] Hosp/Unit DC/Xfer Clinical Impression: Suicidal ideation Bipolar affective, depress, unspec Qualifiers: Current episode severity: moderate Qualified Code(s): F31.32 - Bipolar disorder , current episode depressed, moderate UTI (urinary tract infection) Qualifiers: Urinary tract infection type: acute cystitis Hematuria presence: without hematuria Qualified Code(s): N30.00 - Acute cystitis without hematuria Condition: Stable Record reviewed to determine appropriate education?: Yes Instructions: ED UTI Cystitis Female Follow-Up: Jennifer Andrea DO [Primary Care Provider] - Prescriptions: Nitrofurantoin Monohyd/M-Cryst [Macrobid 100 mg Capsule] 100 mg PO BID #14 capsule Comments: Continue usual medications. Drink lots of fluids. Macrobid twice daily for a week for mild bladder infection. Go to the respite center as scheduled and arranged. Discharge Date/Time: 10/29/17 19:13
[2017-10-29 12:50] LABS: BASOPHILS # (AUTO) 0.1 10^3/uL (0.0-0.1); BASOPHILS % (AUTO) 0.7 %; EOSINOPHILS # (AUTO) 0.2 10^3/uL (0.0-0.7); HGB - HEMOGLOBIN 12.4 g/dL (12.0-16.0); LYMPHOCYTES # (AUTO) 2.4 10^3/uL (1.5-3.5); LYMPHOCYTES % (AUTO) 22.3 %; MEAN CORPUSCULAR HEMOGLOBIN 26.8 pg (27.0-31.0); MEAN CORPUSCULAR HGB CONC 32.5 g/dL (32.0-36.0); MEAN CORPUSCULAR VOLUME 82.3 fL (81.0-99.0); MEAN PLATELET VOLUME 6.8 fL (7.9-10.8); MONOCYTES # (AUTO) 0.8 10^3/uL (0.0-1.0); MONOCYTES % (AUTO) 7.8 %; NEUTROPHILS # (AUTO) 7.3 10^3/uL (1.5-6.6); NEUTROPHILS % (AUTO) 67.2 %; PLT - PLATELET COUNT 370 10^3/uL (130-450); RED BLOOD COUNT 4.64 10^6/uL (4.20-5.40); WHITE BLOOD COUNT 10.9 x10^3/uL (4.8-10.8)
[2017-10-29 13:04] LABS: MUDS CUTOFF CONCENTRATIONS CUTOFF CONC BELOW:
[2017-10-29 13:05] LABS: ALBUMIN 3.2 g/dL (3.2-5.5); ALBUMIN/GLOBULIN RATIO 0.8 (1.0-2.2); ALKALINE PHOSPHATASE 71 IU/L (42-121); ALT ALANINE AMINOTRANSFERASE 18 IU/L (10-60); AST ASPARTATE AMINOTRANSFERASE 24 IU/L (10-42); BILIRUBIN,TOTAL 0.5 mg/dL (0.2-1.0); BUN - BLOOD UREA NITROGEN 7 mg/dL (6-20); CALCIUM 9.3 mg/dL (8.5-10.3); CARBON DIOXIDE - CO2 21 mmol/L (21-32); CHLORIDE 104 mmol/L (101-111); CREATININE 0.8 mg/dL (0.4-1.0); GFR - MDRD 91 (>89); GLUCOSE 101 mg/dL (70-100); LIPASE 12 U/L (22-51); SALICYLATE < 6.0 mg/dL; SODIUM 136 mmol/L (135-145)
[2017-10-29 13:06] LABS: BILIRUBIN,URINE NEGATIVE (NEGATIVE); GLUCOSE, URINE (UA) NEGATIVE (NEGATIVE); KETONES,URINE (UA) NEGATIVE (NEGATIVE); LEUKOCYTE ESTERASE, URINE MODERATE (NEGATIVE); NITRITE,URINE NEGATIVE (NEGATIVE); OCCULT BLOOD,URINE NEGATIVE (NEGATIVE); PH,URINE 7.5 PH (5.0-7.5); PROTEIN,URINE NEGATIVE (NEGATIVE); UROBILINOGEN,URINE 0.2 (NORMAL) E.U./dL (NORMAL)
[2017-10-29 13:09] LABS: ACETAMINOPHEN < 10 ug/mL (10-30)
[2017-10-29 13:10] LABS: CLARITY,URINE HAZY (CLEAR); HCG UR QUAL NEGATIVE
[2017-10-29 13:17] LABS: BACTERIA,URINE Moderate /HPF (None Seen); RBC,URINE None Seen /HPF (0-5); SQUAMOUS EPITHELIAL CELL,UR MOD Squamous (<= Few)
[2017-10-29 13:23] LABS: AMPHETAMINE SCREEN,URINE NEGATIVE (NEGATIVE); BENZODIAZEPINES SCREEN, URINE NEGATIVE (NEGATIVE); COCAINE SCREEN URINE NEGATIVE (NEGATIVE); METHADONE SCREEN, URINE NEGATIVE (NEGATIVE); METHAMPHETAMINES SCREEN, URINE NEGATIVE (NEGATIVE); OPIATE SCREEN, URINE NEGATIVE (NEGATIVE); OXYCODONE SCREEN, URINE NEGATIVE (NEGATIVE); PROPOXYPHENE SCREEN, URINE NEGATIVE (NEGATIVE); TRICYCLIC ANTIDEPRESSANT,URINE NEGATIVE (NEGATIVE)
[2017-10-29 14:20] LABS: LITHIUM 0.73 mmol/L
[2017-10-29] MEDS ORDERED: NITROFURANTOIN MACRO 100 MG CAPSULE PO STA (14:28)
[2017-10-29 19:13] VITALS: BP 153/95
== END 2017-10-29 19:13 ==
LOC: ED 11:41
DX: F31.32 Bipolar disorder, current episode depressed, moderate (principal); R45.851 Suicidal ideations; N30.00 Acute cystitis without hematuria; F41.9 Anxiety disorder, unspecified
CPT/HCPCS: 36415; 80053; 80178; 80306; 80307; 80329; 81001; 81025; 83690; 84443; 85025; 99283; 99284; A9270; 81003; 87086

== ENCOUNTER 2017-11-09 11:58 | Emergency (ER) | payer BC, MEDICAID ==
[2017-11-09 12:11] VITALS: BP 140/93
[2017-11-09] MEDS ORDERED: DEXAMETHASONE 10 MG/ML VIAL PO STA (14:56)
--- NOTE | 2017-11-09 14:59 | ED Physician Documentation ---
PD HPI URI - Stated complaint Stated Complaint: THROAT/EAR PX/COUGH - Chief complaint Chief Complaint: Heent - History obtained from History obtained from: Patient - History of Present Illness Timing - onset: How many weeks ago (1) Timing duration: Weeks (1) Timing details: Gradual onset Pain level max: 6 Pain level now: 5 Associated symptoms: Fever, Ear pain, Nasal congestion, Rhinorrhea Contributing factors: Sick contact Improves by: Rest Worsened by: Activity Recently seen: Not recently seen Review of Systems Constitutional: denies: Chills Ears: reports: Ear pain Nose: reports: Rhinorrhea / runny nose, Congestion Throat: denies: Sore throat Cardiac: denies: Chest pain / pressure Respiratory: reports: Cough GI: denies: Vomiting, Diarrhea : denies: Now EGA Skin: denies: Rash Musculoskeletal: denies: Neck pain, Back pain Neurologic: denies: Generalized weakness PD PAST MEDICAL HISTORY - Past Medical History Past Medical History: Yes Cardiovascular: Other Respiratory: None Neuro: None Endocrine/Autoimmune: None GI: Cholelithiasis 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 : None HEENT: None Psych: Depression, Anxiety, Bipolar disorder, Panic attacks, Post traumatic stress disorder, Other Musculoskeletal: None Derm: None - Past Surgical History Past Surgical History: Yes General: Cholecystectomy - Present Medications Home Medications: Ambulatory Orders Medication Instructions Recorded Confirmed Bupropion HCl [Bupropion Xl] 150 mg PO DAILY 07/30/17 11/09/17 Ethinyl Estradiol/Drospirenone 1 each PO DAILY 07/30/17 11/09/17 [Huma 28 Tablet] Hydroxyzine Pamoate [Vistaril] 50 mg PO BID 07/30/17 11/09/17 [place] Carbonate 3 cap PO DAILY PM 07/30/17 11/09/17 lamoTRIgine [LaMICtal] 300 mg PO DAILY PM 07/30/17 11/09/17 risperiDONE [Risperdal] 1 mg PO DAILY 07/30/17 11/09/17 risperiDONE [Risperdal] 2 mg PO DAILY PM 07/30/17 11/09/17 traZODone [Desyrel] 50 mg PO HS 07/30/17 11/09/17 Amoxicillin 500 mg PO TID #30 capsule 11/09/17 - Allergies Allergies/Adverse Reactions: Allergies Allergy/AdvReac Type Severity Reaction Status Date / Time No Known Drug Allergies Allergy Verified 11/09/17 12:11 - Social History Does the pt smoke?: No Smoking Status: Never smoker Does the pt drink ETOH?: No Does the pt have substance abuse?: No - Immunizations Immunizations are current?: Yes - POLST Patient has POLST: No PD ED PE NORMAL - Vitals Vital signs reviewed: Yes - General General: Alert and oriented X 3, No acute distress - HEENT HEENT: Moist mucous membranes, Pharynx benign, Other (B TM are eryrthematous, dull, bulging, loss of landmarks.) - Cardiac Cardiac: RRR - Respiratory Respiratory: No respiratory distress, Clear bilaterally - Abdomen Abdomen: Soft, Non tender, Non distended - Derm Derm: Warm and dry, No rash - Neuro Neuro: Alert and oriented X 3 - Psych Psych: Normal mood, Normal affect Results - Vitals Vitals: Vital Signs - 24 hr 11/09/17 12:09 Temperature 36.6 C Heart Rate 104 H Respiratory 20 Rate Blood Pressure 140/93 H O2 Saturation 98 Oxygen O2 Source Room air - Labs Labs: Laboratory Tests 11/09/17 12:16 Group A Strep Rapid Negative PD MEDICAL DECISION MAKING - ED course Complexity details: reviewed results, re-evaluated patient, considered differential, d/w patient ED course: Patient is a 22-year-old female who presents to the emergency department with what appears to be a viral upper respiratory infection complicated by acute otitis media. Given dexamethasone here. Will place on antibiotics for home and follow-up with her doctor. Patient is well-appearing, nontoxic. Well- hydrated. Patient counseled regarding signs and symptoms for which I believe and urgent re-evaluation would be necessary. Patient with good understanding of and agreement to plan and is comfortable going home at this time This document was made in part using voice recognition software. While efforts are made to proofread this document, sound alike and grammatical errors may occur. Departure - Departure Disposition: 01 Home, Self Care Clinical Impression: Viral URI Otitis media Qualifiers: Otitis media type: suppurative Chronicity: acute Laterality: bilateral Recurrence: not specified as recurrent Spontaneous tympanic membrane rupture: without spontaneous rupture Qualified Code(s): H66.003 - Acute suppurative otitis media without spontaneous rupture of ear drum, bilateral Condition: Good Instructions: ED Otitis Media Acute Adult, ED Viral Syndrome Follow-Up: Jennifer Andrea DO [Primary Care Provider] - Within 1 week Prescriptions: Amoxicillin 500 mg PO TID #30 capsule Comments: Drink plenty of fluids and rest. Take all antibiotics until gone. Return if you worsen. Continue motrin and tylenol as needed for pain.
== END 2017-11-09 15:10 | disposition home or self-care (01) ==
LOC: ED 11:58
DX: J06.9 Acute upper respiratory infection, unspecified (principal); B97.89 Other viral agents as the cause of diseases classified elsewhere; H66.003 Acute suppurative otitis media without spontaneous rupture of ear drum, bilateral
CPT/HCPCS: 87070; 87430; 99283

== ENCOUNTER 2017-11-30 10:43 | Emergency (ER) | payer BC, MEDICAID ==
[2017-11-30] MEDS ORDERED: DEXAMETHASONE 10 MG/ML VIAL PO STA (12:16)
--- NOTE | 2017-11-30 12:19 | ED Physician Documentation ---
PD HPI HEENT - Stated complaint Stated Complaint: THROAT PX - Chief complaint Chief Complaint: Heent - History obtained from History obtained from: Patient - History of Present Illness Timing - onset: Yesterday Timing - duration: Days (2) Timing - details: Gradual onset, Still present Location: Sinuses, Throat Improves: Medication Worsens: [place] Associated symptoms: Congestion, Rhinorrhea. No: Fever, Cough Similar symptoms before: Has not had sx before Recently seen: Not recently seen - Additional information Additional information: 22-year-old female began to get congestion and has developed a sore throat beginning yesterday she is having some difficulty swallowing and she has not had a fever or cough. Review of Systems Constitutional: reports: Myalgias. 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 HEENT: None Psych: Depression, Anxiety, Bipolar disorder, Panic attacks, Post traumatic stress disorder, Other Musculoskeletal: None Derm: None - Past Surgical History Past Surgical History: Yes General: Cholecystectomy - Present Medications Home Medications: Ambulatory Orders Medication Instructions Recorded Confirmed Bupropion HCl [Bupropion Xl] 150 mg PO DAILY 07/30/17 11/09/17 Ethinyl Estradiol/Drospirenone 1 each PO DAILY 07/30/17 11/09/17 [Huma 28 Tablet] Hydroxyzine Pamoate [Vistaril] 50 mg PO BID 07/30/17 11/09/17 [place] Carbonate 3 cap PO DAILY PM 07/30/17 11/09/17 lamoTRIgine [LaMICtal] 300 mg PO DAILY PM 07/30/17 11/09/17 risperiDONE [Risperdal] 1 mg PO DAILY 07/30/17 11/09/17 risperiDONE [Risperdal] 2 mg PO DAILY PM 07/30/17 11/09/17 traZODone [Desyrel] 50 mg PO HS 07/30/17 11/09/17 Amoxicillin 500 mg PO TID #30 capsule 11/09/17 Azithromycin [Zithromax] 250 mg PO DAILY #6 tablet 11/30/17 - Allergies Allergies/Adverse Reactions: Allergies Allergy/AdvReac Type Severity Reaction Status Date / Time No Known Drug Allergies Allergy Verified 11/30/17 10:58 - Social History Does the pt smoke?: No Smoking Status: Never smoker Does the pt drink ETOH?: No Does the pt have substance abuse?: No - Immunizations Immunizations are current?: Yes - POLST Patient has POLST: No PD ED PE NORMAL - Vitals Vital signs reviewed: Yes (tachy ) - General General: Alert and oriented X 3, No acute distress, Well developed/nourished - HEENT HEENT: Atraumatic, PERRL, EOMI, Other (both TM's are inflamed with distortion of the landmarks. The pharynx is with 2+ tonsils with exudate and there is a small opening. ) - Neck Neck: Supple, no meningeal sign, No bony TTP - Cardiac Cardiac: RRR, No murmur - Respiratory Respiratory: No respiratory distress, Clear bilaterally - Abdomen Abdomen: Soft, Non tender - Back Back: No CVA TTP, No spinal TTP - Derm Derm: Normal color, Warm and dry, No rash - Extremities Extremities: No deformity, No edema - Neuro Neuro: No motor deficit, No sensory deficit Eye Opening: Spontaneous Motor: Obeys Commands Verbal: Oriented GCS Score: 15 - Psych Psych: Normal mood, Normal affect Results - Vitals Vitals: Vital Signs - 24 hr 11/30/17 10:54 Temperature 36.0 C L Heart Rate 119 H Respiratory 20 Rate Blood Pressure 133/87 H O2 Saturation 96 Oxygen O2 Source Room air - Labs Labs: Laboratory Tests 11/30/17 11:25 Group A Strep Rapid Negative PD MEDICAL DECISION MAKING - ED course Complexity details: considered differential, d/w patient ED course: 22 y/o female with a sore throat has BOM and a negative rapid strep. She has been on a course of amoxicillin in the past month for oM. She is given decadron and we will put her on some zithromax. Departure - Departure Disposition: 01 Home, Self Care Clinical Impression: Otitis media Qualifiers: Otitis media type: suppurative Chronicity: acute Laterality: bilateral Recurrence: not specified as recurrent Spontaneous tympanic membrane rupture: without spontaneous rupture Qualified Code(s): H66.003 - Acute suppurative otitis media without spontaneous rupture of ear drum, bilateral Condition: Stable Instructions: ED Otitis Media Acute Adult Follow-Up: Jennifer Andrea DO [Primary Care Provider] - Prescriptions: Azithromycin [Zithromax] 250 mg PO DAILY #6 tablet
[2017-11-30 12:26] VITALS: BP 143/90
[2017-11-30] MEDS ORDERED: CHERRY SYRUP 10 ML UDC PO ONE (12:32)
== END 2017-11-30 12:30 | disposition home or self-care (01) ==
LOC: ED 10:43
DX: H66.003 Acute suppurative otitis media without spontaneous rupture of ear drum, bilateral (principal); F31.9 Bipolar disorder, unspecified; F41.9 Anxiety disorder, unspecified
CPT/HCPCS: 87070; 87430; 99283; A9270

== ENCOUNTER 2018-01-26 21:16 | Outpatient (CLI) | payer BC, MEDICAID | END 2018-01-26 21:17 | disposition critical access hospital (66) | LOC: EMS 21:16 | PROVIDERS: ATTEND Surgery | DX: R52 Pain, unspecified (principal); R06.02 Shortness of breath | CPT/HCPCS: A0425; A0429 ==

== ENCOUNTER 2018-01-26 21:37 | Emergency (ER) | payer BC, MEDICAID ==
[2018-01-26 22:55] LABS: BASOPHILS % (AUTO) 0.5 %; EOSINOPHILS # (AUTO) 0.4 10^3/uL (0.0-0.7); EOSINOPHILS % (AUTO) 4.4 %; HGB - HEMOGLOBIN 12.8 g/dL (12.0-16.0); LYMPHOCYTES # (AUTO) 3.5 10^3/uL (1.5-3.5); LYMPHOCYTES % (AUTO) 38.4 %; MEAN CORPUSCULAR HEMOGLOBIN 27.3 pg (27.0-31.0); MEAN CORPUSCULAR VOLUME 80.4 fL (81.0-99.0); MEAN PLATELET VOLUME 7.2 fL (7.9-10.8); MONOCYTES % (AUTO) 11.4 %; NEUTROPHILS # (AUTO) 4.1 10^3/uL (1.5-6.6); NEUTROPHILS % (AUTO) 45.3 %; PLT - PLATELET COUNT 338 10^3/uL (130-450); RED BLOOD COUNT 4.69 10^6/uL (4.20-5.40); RED CELL DISTRIBUTION WIDTH 14.6 % (12.0-15.0)
[2018-01-26 23:05] LABS: BILIRUBIN,URINE NEGATIVE (NEGATIVE); GLUCOSE, URINE (UA) NEGATIVE (NEGATIVE); KETONES,URINE (UA) TRACE mg/dL (NEGATIVE); LEUKOCYTE ESTERASE, URINE NEGATIVE (NEGATIVE); NITRITE,URINE NEGATIVE (NEGATIVE); OCCULT BLOOD,URINE NEGATIVE (NEGATIVE); PH,URINE 5.5 PH (5.0-7.5); PROTEIN,URINE NEGATIVE (NEGATIVE); UROBILINOGEN,URINE 0.2 (NORMAL) E.U./dL (NORMAL)
[2018-01-26 23:08] LABS: ALBUMIN 3.5 g/dL (3.2-5.5); ALBUMIN/GLOBULIN RATIO 0.9 (1.0-2.2); BILIRUBIN,TOTAL 0.4 mg/dL (0.2-1.0); CALCIUM 9.1 mg/dL (8.5-10.3); CREATININE 0.9 mg/dL (0.4-1.0); MAGNESIUM 2.1 mg/dL (1.7-2.8); TOTAL PROTEIN 7.4 g/dL (6.7-8.2)
[2018-01-26 23:16] LABS: CLARITY,URINE CLEAR (CLEAR); HCG UR QUAL NEGATIVE
[2018-01-26] MEDS ORDERED: IBUPROFEN 600 MG TABLET PO STA (23:39)
--- NOTE | 2018-01-27 00:04 | ED Physician Documentation ---
History of Present Illness - Stated complaint Stated Complaint: BODY PAIN - Chief complaint Chief Complaint: General - History obtained from History obtained from: Patient, Friend, EMS - History of Present Illness Timing: Chronic - Additonal information Additional information: patient is a 22 year old female with a history of muliple psychiatric disorders including depression, anxiety and ptsd. patient is presenting to the emergency department for generalized pain. patient states that the pain is her whole body. Patient reports that the pain comes and goes and denies any aggravating or alleviating factors. Patient went to a neighboring ER yesterday where x- rays were performed and negative. Review of Systems Constitutional: reports: Myalgias. denies: Fever, Chills Eyes: reports: Reviewed and negative Ears: reports: Reviewed and negative Nose: reports: Reviewed and negative Throat: reports: Reviewed and negative Cardiac: reports: Chest pain / pressure Respiratory: reports: Dyspnea GI: denies: Nausea, Vomiting : reports: Reviewed and negative Skin: denies: Rash, Lesions, Abrasion (s) Musculoskeletal: reports: Neck pain, Back pain, Extremity pain, Joint pain Neurologic: denies: Generalized weakness, Focal weakness, Numbness, Headache, Head injury, LOC Psychiatric: reports: Depressed, Anxiety, Insomnia. 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: None Psych: Depression, Anxiety, Bipolar disorder, Panic attacks, Post traumatic stress disorder, Other Musculoskeletal: None Derm: None - Past Surgical History Past Surgical History: Yes General: Cholecystectomy - Present Medications Home Medications: Ambulatory Orders Medication Instructions Recorded Confirmed Bupropion HCl [Bupropion Xl] 150 mg PO DAILY 07/30/17 11/09/17 Ethinyl Estradiol/Drospirenone 1 each PO DAILY 07/30/17 11/09/17 [Huma 28 Tablet] Hydroxyzine Pamoate [Vistaril] 50 mg PO BID 07/30/17 11/09/17 [place] Carbonate 3 cap PO DAILY PM 07/30/17 11/09/17 lamoTRIgine [LaMICtal] 300 mg PO DAILY PM 07/30/17 11/09/17 risperiDONE [Risperdal] 1 mg PO DAILY 07/30/17 11/09/17 risperiDONE [Risperdal] 2 mg PO DAILY PM 07/30/17 11/09/17 traZODone [Desyrel] 50 mg PO HS 07/30/17 11/09/17 Amoxicillin 500 mg PO TID #30 capsule 11/09/17 Azithromycin [Zithromax] 250 mg PO DAILY #6 tablet 11/30/17 - Allergies Allergies/Adverse Reactions: Allergies Allergy/AdvReac Type Severity Reaction Status Date / Time No Known Drug Allergies Allergy Verified 01/26/18 22:18 - Social History Does the pt smoke?: No Smoking Status: Never smoker Does the pt drink ETOH?: No Does the pt have substance abuse?: No - Immunizations Immunizations are current?: Yes - POLST Patient has POLST: No PD ED PE NORMAL - Vitals Vital signs reviewed: Yes - General General: Alert and oriented X 3, No acute distress - HEENT HEENT: Atraumatic, PERRL, Moist mucous membranes - Neck Neck: Supple, no meningeal sign - Cardiac Cardiac: RRR - Respiratory Respiratory: No respiratory distress - Abdomen Abdomen: Soft, Other (obese) - Derm Derm: Normal color, No rash - Extremities Extremities: No deformity - Neuro Neuro: Alert and oriented X 3, No motor deficit, Normal speech Eye Opening: Spontaneous PD ED PE EXPANDED - Psych Psych: Other (flat affect) Results - Vitals Vitals: Vital Signs - 24 hr 01/26/18 01/27/18 21:40 00:16 Temperature 36.2 C L Heart Rate 96 85 Respiratory 18 17 Rate Blood Pressure 118/78 147/94 H O2 Saturation 95 97 Oxygen O2 Source Room air - Labs Labs: Laboratory Tests 01/26/18 01/26/18 01/26/18 22:48 22:48 22:50 WBC 9.0 RBC 4.69 Hgb 12.8 Hct 37.7 MCV 80.4 L MCH 27.3 MCHC 34.0 RDW 14.6 Plt Count 338 MPV 7.2 L Neut # 4.1 Lymph # 3.5 [place] # 1.0 Eos # 0.4 Baso # 0.0 Absolute Nucleated RBC 0.00 Nucleated RBC % 0.0 Sodium 139 Potassium 3.9 Chloride 108 Carbon Dioxide 22 Anion Gap 9.0 BUN 13 Creatinine 0.9 Estimated GFR (MDRD) 80 L Glucose 95 Calcium 9.1 Phosphorus 4.0 Magnesium 2.1 Total Bilirubin 0.4 AST 27 ALT 20 Alkaline Phosphatase 89 Total Protein 7.4 Albumin 3.5 Globulin 3.9 Albumin/Globulin Ratio 0.9 L Lipase 23 Urine Color YELLOW Urine Clarity CLEAR Urine pH 5.5 Ur Specific [place] >=1.030 H Urine Protein NEGATIVE Urine Glucose (UA) NEGATIVE Urine Ketones TRACE Urine Occult Blood NEGATIVE Urine Nitrite NEGATIVE Urine Bilirubin NEGATIVE Urine Urobilinogen 0.2 (NORMAL) Ur Leukocyte Esterase NEGATIVE Ur Microscopic Review NOT INDICATED Urine Culture Comments NOT INDICATED Urine HCG, Qual 01/26/18 22:50 WBC RBC Hgb Hct MCV MCH MCHC RDW Plt Count MPV Neut # Lymph # [place] # Eos # Baso # Absolute Nucleated RBC Nucleated RBC % Sodium Potassium Chloride Carbon Dioxide Anion Gap BUN Creatinine Estimated GFR (MDRD) Glucose Calcium Phosphorus Magnesium Total Bilirubin AST ALT Alkaline Phosphatase Total Protein Albumin Globulin Albumin/Globulin Ratio Lipase Urine Color Urine Clarity Urine pH Ur Specific [place] >=1.030 H Urine Protein Urine Glucose (UA) Urine Ketones Urine Occult Blood Urine Nitrite Urine Bilirubin Urine Urobilinogen Ur Leukocyte Esterase Ur Microscopic Review Urine Culture Comments Urine HCG, Qual NEGATIVE PD MEDICAL DECISION MAKING - ED course Complexity details: reviewed old records, reviewed results, re-evaluated patient , considered differential, d/w patient ED course: patient was seen and examined at bedside. labs were drawn and urine was collected. Patient's diagnostics were within normal limits. A lengthy discussion was had with the patient and her friend concerning mental health, it' s physical manifestations and coping mechanisms. patient had outpatient psychiatric follow up and was stable for discharge with outpatient follow up. Departure - Departure Disposition: 01 Home, Self Care Clinical Impression: Somatization disorder Condition: Good Instructions: ED Stress React Follow-Up: Jennifer Andrea DO [Primary Care Provider] - Within 3 Days Comments: Your diagnostics today were within normal limits. Your pain is likely secondary at least in part due to somatization of your stress and anxiety. You should follow up with your therapist and start to incorporate exercise into your daily routine. You can take motrin or tylenol as needed for pain. You may return to the emergency department at any time for new, worsening or uncontrollable symptoms. Discharge Date/Time: 01/27/18 00:16
[2018-01-27 00:17] VITALS: BP 147/94
== END 2018-01-27 00:16 | disposition home or self-care (01) ==
LOC: EDUNIT# → ED 21:37
DX: F45.0 Somatization disorder (principal); F32.9 Major depressive disorder, single episode, unspecified; F41.9 Anxiety disorder, unspecified; F43.10 Post-traumatic stress disorder, unspecified
CPT/HCPCS: 36415; 80053; 81003; 81025; 83690; 83735; 84100; 85025; 99283; A9270; 81001; 87086

== ENCOUNTER 2018-01-28 21:11 | Outpatient (CLI) | payer BC, MEDICAID | END 2018-01-28 21:12 | disposition critical access hospital (66) | LOC: EMS 21:11 | PROVIDERS: ATTEND Surgery | DX: T42.6X2A Poisoning by other antiepileptic and sedative-hypnotic drugs, intentional self-harm, initial encounter (principal) | CPT/HCPCS: A0425; A0429 ==

== ENCOUNTER 2018-01-28 21:24 | Emergency (ER) | payer BC, MEDICAID ==
--- NOTE | 2018-01-28 21:28 | ED Physician Documentation ---
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 she did this due to feeling depressed and anxious. she did this in the presence of a roommate, prompting them to call 911. patient says she did this on "an impulse" and does not feel suicidal at this time. She was T+R from this ED a little over 24 hours ago for generalized/body pain (and the ED note reflects a recent visit to another ED for similar c/o). Review of Systems Cardiac: reports: Reviewed and negative Respiratory: reports: Reviewed and negative GI: reports: Reviewed and negative Neurologic: denies: Confused, Altered mental status Psychiatric: reports: Depressed, Suicidal. 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 HEENT: None Psych: Depression, Anxiety, Bipolar disorder, Panic attacks, Post traumatic stress disorder, Other Musculoskeletal: None Derm: None - Past Surgical History Past Surgical History: Yes General: Cholecystectomy - Present Medications Home Medications: Ambulatory Orders Medication Instructions Recorded Confirmed Bupropion HCl [Bupropion Xl] 150 mg PO DAILY 07/30/17 11/09/17 Ethinyl Estradiol/Drospirenone 1 each PO DAILY 07/30/17 11/09/17 [Huma 28 Tablet] Hydroxyzine Pamoate [Vistaril] 50 mg PO BID 07/30/17 11/09/17 [place] Carbonate 3 cap PO DAILY PM 07/30/17 11/09/17 lamoTRIgine [LaMICtal] 300 mg PO DAILY PM 07/30/17 11/09/17 risperiDONE [Risperdal] 1 mg PO DAILY 07/30/17 11/09/17 risperiDONE [Risperdal] 2 mg PO DAILY PM 07/30/17 11/09/17 traZODone [Desyrel] 50 mg PO HS 07/30/17 11/09/17 Amoxicillin 500 mg PO TID #30 capsule 11/09/17 Azithromycin [Zithromax] 250 mg PO DAILY #6 tablet 11/30/17 - Allergies Allergies/Adverse Reactions: Allergies Allergy/AdvReac Type Severity Reaction Status Date / Time No Known Drug Allergies Allergy Verified 01/26/18 22:18 - Social History Does the pt smoke?: No Smoking Status: Never smoker Does the pt drink ETOH?: No Does the pt have substance abuse?: No - Immunizations Immunizations are current?: Yes - POLST Patient has POLST: No PD ED PE NORMAL - Vitals Vital signs reviewed: Yes - General General: Alert and oriented X 3, No acute distress, Well developed/nourished - HEENT HEENT: PERRL, EOMI, Moist mucous membranes - Cardiac Cardiac: RRR, No murmur - Respiratory Respiratory: No respiratory distress, Clear bilaterally - Neuro Neuro: Alert and oriented X 3, global ceo 2-12 intact, No motor deficit, No sensory deficit, Normal speech Eye Opening: Spontaneous Motor: Obeys Commands Verbal: Oriented GCS Score: 15 Results - Vitals Vitals: Vital Signs - 24 hr 01/28/18 01/28/18 01/29/18 21:25 23:45 00:27 Temperature 36.9 C Heart Rate 103 H 98 93 Respiratory 16 23 16 Rate Blood Pressure 129/90 H 141/71 H 147/84 H O2 Saturation 96 96 96 01/29/18 02:19 Temperature Heart Rate 88 Respiratory 16 Rate Blood Pressure 133/82 H O2 Saturation 98 Oxygen O2 Source Room air - Labs Labs: Laboratory Tests 01/28/18 01/28/18 01/28/18 21:52 21:52 23:05 WBC 9.4 RBC 4.43 Hgb 11.9 L Hct 36.0 L MCV 81.1 MCH 26.9 L MCHC 33.2 RDW 14.6 Plt Count 329 MPV 7.3 L Neut # 4.8 Lymph # 3.5 [place] # 0.8 Eos # 0.3 Baso # 0.1 Absolute Nucleated RBC 0.00 Nucleated RBC % 0.0 Sodium 138 Potassium 3.6 Chloride 106 Carbon Dioxide 24 Anion Gap 8.0 BUN 8 Creatinine 0.7 Estimated GFR (MDRD) 107 Glucose 111 H Calcium 8.5 Urine Color YELLOW Urine Clarity CLEAR Urine pH 6.0 Ur Specific [place] 1.020 Urine Protein NEGATIVE Urine Glucose (UA) NEGATIVE Urine Ketones NEGATIVE Urine Occult Blood LARGE H Urine Nitrite NEGATIVE Urine Bilirubin NEGATIVE Urine Urobilinogen 0.2 (NORMAL) Ur Leukocyte Esterase TRACE H Urine RBC 11-25 H Urine WBC 6-10 H Ur Squamous Epith Cells MANY Squamous H Urine Bacteria Few Urine Mucus Few Strands Ur Microscopic Review INDICATED Urine Culture Comments NOT INDICATED Urine HCG, Qual Salicylates < 6.0 Urine Opiates Screen NEGATIVE Ur Oxycodone Screen NEGATIVE Urine Methadone Screen NEGATIVE Ur Propoxyphene Screen NEGATIVE Acetaminophen < 10 L Ur Barbiturates Screen NEGATIVE Ur Tricyclics Screen NEGATIVE Ur Phencyclidine Scrn NEGATIVE Ur Amphetamine Screen NEGATIVE U Methamphetamines Scrn NEGATIVE U Benzodiazepines Scrn NEGATIVE Urine Cocaine Screen NEGATIVE U Cannabinoids Screen NEGATIVE Ethyl Alcohol < 5.0 01/28/18 23:05 WBC RBC Hgb Hct MCV MCH MCHC RDW Plt Count MPV Neut # Lymph # [place] # Eos # Baso # Absolute Nucleated RBC Nucleated RBC % Sodium Potassium Chloride Carbon Dioxide Anion Gap BUN Creatinine Estimated GFR (MDRD) Glucose Calcium Urine Color Urine Clarity Urine pH Ur Specific [place] 1.020 Urine Protein Urine Glucose (UA) Urine Ketones Urine Occult Blood Urine Nitrite Urine Bilirubin Urine Urobilinogen Ur Leukocyte Esterase Urine RBC Urine WBC Ur Squamous Epith Cells Urine Bacteria Urine Mucus Ur Microscopic Review Urine Culture Comments Urine HCG, Qual NEGATIVE Salicylates Urine Opiates Screen Ur Oxycodone Screen Urine Methadone Screen Ur Propoxyphene Screen Acetaminophen Ur Barbiturates Screen Ur Tricyclics Screen Ur Phencyclidine Scrn Ur Amphetamine Screen U Methamphetamines Scrn U Benzodiazepines Scrn Urine Cocaine Screen U Cannabinoids Screen Ethyl Alcohol PD MEDICAL DECISION MAKING - ED course Complexity details: reviewed old records, reviewed results, re-evaluated patient , considered differential, d/w patient ED course: cleared for discharge by [facility] Departure - Departure Disposition: 01 Home, Self Care Clinical Impression: Depression Qualifiers: Depression Type: unspecified Qualified Code(s): F32.9 - Major depressive disorder, single episode, unspecified Condition: Good Instructions: ED Depression Discharge Date/Time: 01/29/18 02:19
[2018-01-28 21:58] LABS: BASOPHILS # (AUTO) 0.1 10^3/uL (0.0-0.1); BASOPHILS % (AUTO) 0.5 %; EOSINOPHILS # (AUTO) 0.3 10^3/uL (0.0-0.7); HGB - HEMOGLOBIN 11.9 g/dL (12.0-16.0); LYMPHOCYTES # (AUTO) 3.5 10^3/uL (1.5-3.5); LYMPHOCYTES % (AUTO) 37.4 %; MEAN CORPUSCULAR HEMOGLOBIN 26.9 pg (27.0-31.0); MEAN CORPUSCULAR HGB CONC 33.2 g/dL (32.0-36.0); MEAN CORPUSCULAR VOLUME 81.1 fL (81.0-99.0); MEAN PLATELET VOLUME 7.3 fL (7.9-10.8); MONOCYTES # (AUTO) 0.8 10^3/uL (0.0-1.0); MONOCYTES % (AUTO) 8.1 %; NEUTROPHILS # (AUTO) 4.8 10^3/uL (1.5-6.6); PLT - PLATELET COUNT 329 10^3/uL (130-450); RED BLOOD COUNT 4.43 10^6/uL (4.20-5.40); RED CELL DISTRIBUTION WIDTH 14.6 % (12.0-15.0); WHITE BLOOD COUNT 9.4 x10^3/uL (4.8-10.8)
[2018-01-28 22:51] LABS: BUN - BLOOD UREA NITROGEN 8 mg/dL (6-20); CALCIUM 8.5 mg/dL (8.5-10.3); CARBON DIOXIDE - CO2 24 mmol/L (21-32); CHLORIDE 106 mmol/L (101-111); CREATININE 0.7 mg/dL (0.4-1.0); GFR - MDRD 107 (>89); GLUCOSE 111 mg/dL (70-100); SALICYLATE < 6.0 mg/dL; SODIUM 138 mmol/L (135-145)
[2018-01-28 23:04] LABS: ACETAMINOPHEN < 10 ug/mL (10-30)
[2018-01-28 23:16] LABS: MUDS CUTOFF CONCENTRATIONS CUTOFF CONC BELOW:
[2018-01-28 23:22] LABS: BILIRUBIN,URINE NEGATIVE (NEGATIVE); GLUCOSE, URINE (UA) NEGATIVE (NEGATIVE); KETONES,URINE (UA) NEGATIVE (NEGATIVE); LEUKOCYTE ESTERASE, URINE TRACE (NEGATIVE); NITRITE,URINE NEGATIVE (NEGATIVE); OCCULT BLOOD,URINE LARGE (NEGATIVE); PROTEIN,URINE NEGATIVE (NEGATIVE); UROBILINOGEN,URINE 0.2 (NORMAL) E.U./dL (NORMAL)
[2018-01-28 23:23] LABS: CLARITY,URINE CLEAR (CLEAR)
[2018-01-28 23:24] LABS: HCG UR QUAL NEGATIVE
[2018-01-28 23:27] LABS: SQUAMOUS EPITHELIAL CELL,UR MANY Squamous (<= Few)
[2018-01-28 23:28] LABS: BACTERIA,URINE Few /HPF (None Seen); MUCUS,URINE Few Strands
[2018-01-28 23:31] LABS: AMPHETAMINE SCREEN,URINE NEGATIVE (NEGATIVE); BENZODIAZEPINES SCREEN, URINE NEGATIVE (NEGATIVE); COCAINE SCREEN URINE NEGATIVE (NEGATIVE); METHADONE SCREEN, URINE NEGATIVE (NEGATIVE); METHAMPHETAMINES SCREEN, URINE NEGATIVE (NEGATIVE); OPIATE SCREEN, URINE NEGATIVE (NEGATIVE); OXYCODONE SCREEN, URINE NEGATIVE (NEGATIVE); PROPOXYPHENE SCREEN, URINE NEGATIVE (NEGATIVE); TRICYCLIC ANTIDEPRESSANT,URINE NEGATIVE (NEGATIVE)
[2018-01-29 02:20] VITALS: BP 133/82
== END 2018-01-29 02:19 | disposition home or self-care (01) ==
LOC: EDUNIT# → ED 21:24
DX: F32.9 Major depressive disorder, single episode, unspecified (principal)
CPT/HCPCS: 36415; 80048; 80306; 80307; 80320; 80329; 81001; 81003; 81025; 85025; 87086; 93005; 99283; 99284

== ENCOUNTER 2018-01-29 13:08 | Outpatient (CLI) | payer BC, MEDICAID | END 2018-01-29 13:09 | disposition critical access hospital (66) | LOC: EMS 13:08 | PROVIDERS: ATTEND Surgery | DX: H57.12 Ocular pain, left eye (principal); H53.8 Other visual disturbances | CPT/HCPCS: A0425; A0429 ==

== ENCOUNTER 2018-01-29 13:34 | Emergency (ER) | payer BC, MEDICAID ==
[2018-01-29] MEDS ORDERED: PROPARACAINE 0.5% OPHTH DROPS 15 ML EACHEYE STA (13:40)
[2018-01-29 13:44] VITALS: BP 144/96
--- NOTE | 2018-01-29 13:44 | ED Physician Documentation ---
PD HPI OPHTHO - Stated complaint Stated Complaint: L EYE PX - History obtained from History obtained from: Patient, EMS - History of Present Illness Timing - onset: Today Timing - duration: Days (1) Timing - details: Gradual onset Pain level max: 3 Pain level now: 2 Location: Left Quality / character: Aching Associated symptoms: FB sensation. 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 Seen here yesterday for OD/SI and released. Seen a few days before that for generalized body pain. States her vision "might be a little blurry". 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 HEENT: None Psych: Depression, Anxiety, Bipolar disorder, Panic attacks, Post traumatic stress disorder, Other Musculoskeletal: None Derm: None - Past Surgical History Past Surgical History: Yes General: Cholecystectomy - Present Medications Home Medications: Ambulatory Orders Medication Instructions Recorded Confirmed Bupropion HCl [Bupropion Xl] 150 mg PO DAILY 07/30/17 01/29/18 Ethinyl Estradiol/Drospirenone 1 each PO DAILY 07/30/17 01/29/18 [Huma 28 Tablet] Hydroxyzine Pamoate [Vistaril] 50 mg PO BID 07/30/17 01/29/18 [place] Carbonate 3 cap PO DAILY PM 07/30/17 01/29/18 lamoTRIgine [LaMICtal] 300 mg PO DAILY PM 07/30/17 01/29/18 risperiDONE [Risperdal] 1 mg PO DAILY 07/30/17 01/29/18 risperiDONE [Risperdal] 2 mg PO DAILY PM 07/30/17 01/29/18 traZODone [Desyrel] 50 mg PO HS 07/30/17 01/29/18 Amoxicillin 500 mg PO TID #30 capsule 11/09/17 01/29/18 Azithromycin [Zithromax] 250 mg PO DAILY #6 tablet 11/30/17 01/29/18 - Allergies Allergies/Adverse Reactions: Allergies Allergy/AdvReac Type Severity Reaction Status Date / Time No Known Drug Allergies Allergy Verified 01/26/18 22:18 - Social History Does the pt smoke?: No Smoking Status: Never smoker Does the pt drink ETOH?: No Does the pt have substance abuse?: No - Immunizations Immunizations are current?: Yes - POLST Patient has POLST: No PD ED PE NORMAL - Vitals Vital signs reviewed: Yes - General General: Alert and oriented X 3, No acute distress, Well developed/nourished - HEENT HEENT: PERRL, EOMI, Ears normal, Moist mucous membranes, Other (Normal fluorescein of the eyes bilaterally. No foreign bodies. Normal intraocular pressure, 16 on the left and 15 on the right. Eyelids everted with no foreign body visible. No photophobia. Symptoms resolved with proparacaine. Normal funduscopic exam bilaterally. No papilledema) - Neck Neck: Supple, no meningeal sign - Cardiac Cardiac: RRR, Strong equal pulses - Respiratory Respiratory: No respiratory distress, Clear bilaterally - Derm Derm: Warm and dry - Extremities Extremities: No edema - Neuro Neuro: Alert and oriented X 3 - Psych Psych: Normal mood, Normal affect Results - Vitals Vitals: Vital Signs - 24 hr 01/29/18 13:41 Temperature 36.7 C Heart Rate 123 H Respiratory 18 Rate Blood Pressure 144/96 H O2 Saturation 95 Oxygen O2 Source Room air PD MEDICAL DECISION MAKING - ED course Complexity details: considered differential, d/w patient ED course: Patient is a 22-year-old female with left eye discomfort of unclear etiology today. Normal intraocular pressure. No visible foreign body. No corneal abrasion. Will have her follow-up with her doctor for further evaluation and care. No headache. No evidence of migraine, tumor. No papilledema on funduscopic exam. Patient counseled regarding signs and symptoms for which I believe and urgent re-evaluation would be necessary. Patient with good understanding of and agreement to plan and is comfortable going home at this time This document was made in part using voice recognition software. While efforts are made to proofread this document, sound alike and grammatical errors may occur. Departure - Departure Disposition: 01 Home, Self Care Clinical Impression: Left eye pain Condition: Good Instructions: ED Acute Pain [facility] Follow-Up: Jennifer Andrea DO [Primary Care Provider] - Within 3 Days Comments: The cause of your symptoms today is unclear. Return if you worsen. You can use Tylenol as needed at home. Discharge Date/Time: 01/29/18 14:13
== END 2018-01-29 14:13 | disposition home or self-care (01) ==
LOC: EDUNIT# → ED 13:34
DX: H57.12 Ocular pain, left eye (principal)
CPT/HCPCS: 99283; J3490; 80178

== ENCOUNTER 2018-03-03 13:49 | Outpatient (CLI) | payer BC, MEDICAID | END 2018-03-03 13:50 | disposition critical access hospital (66) | LOC: EMS 13:49 | PROVIDERS: ATTEND Surgery | DX: R45.851 Suicidal ideations (principal) | CPT/HCPCS: A0425; A0429 ==

== ENCOUNTER 2018-03-03 14:11 | Emergency (ER) | payer BC, MEDICAID ==
[2018-03-03 14:29] LABS: BILIRUBIN,URINE NEGATIVE (NEGATIVE); GLUCOSE, URINE (UA) NEGATIVE (NEGATIVE); KETONES,URINE (UA) NEGATIVE (NEGATIVE); LEUKOCYTE ESTERASE, URINE NEGATIVE (NEGATIVE); NITRITE,URINE NEGATIVE (NEGATIVE); OCCULT BLOOD,URINE NEGATIVE (NEGATIVE); PROTEIN,URINE NEGATIVE (NEGATIVE); UROBILINOGEN,URINE 0.2 (NORMAL) E.U./dL (NORMAL)
[2018-03-03 14:31] LABS: CLARITY,URINE CLEAR (CLEAR); HCG UR QUAL NEGATIVE
[2018-03-03 14:43] LABS: BASOPHILS # (AUTO) 0.1 10^3/uL (0.0-0.1); BASOPHILS % (AUTO) 0.5 %; EOSINOPHILS # (AUTO) 0.1 10^3/uL (0.0-0.7); HGB - HEMOGLOBIN 12.9 g/dL (12.0-16.0); LYMPHOCYTES # (AUTO) 3.1 10^3/uL (1.5-3.5); LYMPHOCYTES % (AUTO) 25.8 %; MEAN CORPUSCULAR HEMOGLOBIN 26.7 pg (27.0-31.0); MEAN CORPUSCULAR HGB CONC 31.9 g/dL (32.0-36.0); MEAN CORPUSCULAR VOLUME 83.9 fL (81.0-99.0); MEAN PLATELET VOLUME 7.3 fL (7.9-10.8); MONOCYTES # (AUTO) 0.7 10^3/uL (0.0-1.0); MONOCYTES % (AUTO) 6.2 %; NEUTROPHILS # (AUTO) 7.9 10^3/uL (1.5-6.6); NEUTROPHILS % (AUTO) 66.5 %; PLT - PLATELET COUNT 360 10^3/uL (130-450); RED BLOOD COUNT 4.84 10^6/uL (4.20-5.40); RED CELL DISTRIBUTION WIDTH 15.3 % (12.0-15.0); WHITE BLOOD COUNT 11.9 x10^3/uL (4.8-10.8)
[2018-03-03 14:53] LABS: ALBUMIN 3.2 g/dL (3.2-5.5); ALBUMIN/GLOBULIN RATIO 0.8 (1.0-2.2); ALKALINE PHOSPHATASE 92 IU/L (42-121); ALT ALANINE AMINOTRANSFERASE 19 IU/L (10-60); AST ASPARTATE AMINOTRANSFERASE 24 IU/L (10-42); BILIRUBIN,TOTAL 0.3 mg/dL (0.2-1.0); BUN - BLOOD UREA NITROGEN 6 mg/dL (6-20); CALCIUM 8.8 mg/dL (8.5-10.3); CARBON DIOXIDE - CO2 21 mmol/L (21-32); CHLORIDE 106 mmol/L (101-111); CREATININE 0.7 mg/dL (0.4-1.0); GFR - MDRD 107 (>89); GLUCOSE 90 mg/dL (70-100); LIPASE 24 U/L (22-51); SALICYLATE < 6.0 mg/dL; SODIUM 138 mmol/L (135-145); TOTAL PROTEIN 7.4 g/dL (6.7-8.2)
[2018-03-03 14:54] LABS: ACETAMINOPHEN < 10 ug/mL (10-30)
[2018-03-03 15:06] LABS: MUDS CUTOFF CONCENTRATIONS CUTOFF CONC BELOW:
[2018-03-03 15:21] LABS: AMPHETAMINE SCREEN,URINE NEGATIVE (NEGATIVE); BENZODIAZEPINES SCREEN, URINE NEGATIVE (NEGATIVE); COCAINE SCREEN URINE NEGATIVE (NEGATIVE); METHADONE SCREEN, URINE NEGATIVE (NEGATIVE); METHAMPHETAMINES SCREEN, URINE NEGATIVE (NEGATIVE); OPIATE SCREEN, URINE NEGATIVE (NEGATIVE); OXYCODONE SCREEN, URINE NEGATIVE (NEGATIVE); PROPOXYPHENE SCREEN, URINE NEGATIVE (NEGATIVE); TRICYCLIC ANTIDEPRESSANT,URINE NEGATIVE (NEGATIVE)
[2018-03-03] MEDS ORDERED: LORazepam 0.5 MG TABLET PO STA (15:43)
--- NOTE | 2018-03-03 17:15 | ED Physician Documentation ---
PD HPI MHE - Stated complaint Stated Complaint: MHE - Chief complaint Chief Complaint: MHE - History obtained from History obtained from: Patient - History of Present Illness Primary symptom: Suicidal ideation, Depression, Anxiety. No: Suicide attempt Timing - onset: How many days ago (several days worse symptoms.) Contributing factors: No: Substance abuse - ETOH, Substance abuse - drugs, Off meds Similar symptoms before: Diagnosis (Depression and suicidality) Recently seen: Admitted (She was hospitalized to [facility] within the last couple of months. She states there were some medication adjustments than that helped quite a bit but now is feeling more depressed. She is taking her medications. She has felt more depressed the past month and particularly acute the last several days. She denies any suicidal plan and has not made any attempts.) Review of Systems Constitutional: denies: Fever, Myalgias Nose: denies: Rhinorrhea / runny nose, Congestion Throat: denies: Sore throat Cardiac: denies: Chest pain / pressure Respiratory: denies: Dyspnea, Cough GI: denies: Abdominal Pain, Nausea, Vomiting, Diarrhea : denies: Dysuria, Frequency Skin: denies: Rash, Lesions Neurologic: denies: Near syncope Psychiatric: reports: Depressed, Suicidal (ideation without plan), Anxiety. 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 HEENT: None Psych: Depression, Anxiety, Bipolar disorder, Panic attacks, Post traumatic stress disorder, Other Musculoskeletal: None Derm: None - Past Surgical History Past Surgical History: Yes General: Cholecystectomy - Present Medications Home Medications: Ambulatory Orders Medication Instructions Recorded Confirmed Bupropion HCl [Bupropion Xl] 150 mg PO DAILY 07/30/17 01/29/18 Ethinyl Estradiol/Drospirenone 1 each PO DAILY 07/30/17 01/29/18 [[place]mu[place] 28 Tablet] Hydroxyzine Pamoate [Vistaril] 50 mg PO DAILY 07/30/17 01/29/18 [place] Carbonate 600 mg PO BID 07/30/17 01/29/18 lamoTRIgine [LaMICtal] 300 mg PO DAILY PM 07/30/17 01/29/18 risperiDONE [Risperdal] 2 mg PO DAILY PM 07/30/17 01/29/18 - Allergies Allergies/Adverse Reactions: Allergies Allergy/AdvReac Type Severity Reaction Status Date / Time No Known Drug Allergies Allergy Verified 03/03/18 20:47 - Social History Does the pt smoke?: No Smoking Status: Never smoker Does the pt drink ETOH?: No Does the pt have substance abuse?: No - Immunizations Immunizations are current?: Yes - POLST Patient has POLST: No PD ED PE NORMAL - Vitals Vital signs reviewed: Yes - General General: Alert and oriented X 3, Well developed/nourished, Other (Tearful and emotive.) - HEENT HEENT: Atraumatic, Pharynx benign - Neck Neck: Supple, no meningeal sign, No adenopathy - Cardiac Cardiac: RRR, No murmur - Respiratory Respiratory: Clear bilaterally - Abdomen Abdomen: Soft, Non tender - Back Back: No CVA TTP - Derm Derm: Normal color, Warm and dry - Extremities Extremities: No deformity, Normal ROM s pain, No calf tenderness / cord - Neuro Neuro: Alert and oriented X 3, No motor deficit, Normal speech - Psych Psych: No: Normal mood (sad and tearful. ), Normal affect (tearful) Results - Vitals Vitals: Vital Signs - 24 hr 03/03/18 03/03/18 03/03/18 14:14 17:30 20:45 Temperature 36.5 C 37.1 C Heart Rate 97 98 97 Respiratory 18 18 17 Rate Blood Pressure 144/92 H 138/88 H 130/78 O2 Saturation 97 97 96 03/04/18 03/04/18 06:53 07:23 Temperature 36.7 C 36.3 C L Heart Rate 79 80 Respiratory 18 14 Rate Blood Pressure 140/72 H 136/74 H O2 Saturation 97 97 Oxygen O2 Source Room air - Labs Labs: Laboratory Tests 03/03/18 03/03/18 03/03/18 14:21 14:24 14:24 WBC RBC Hgb Hct MCV MCH MCHC RDW Plt Count MPV Neut # (Auto) Lymph # (Auto) [place] # (Auto) Eos # (Auto) Baso # (Auto) Absolute Nucleated RBC Nucleated RBC % Sodium Potassium Chloride Carbon Dioxide Anion Gap BUN Creatinine Estimated GFR (MDRD) Glucose Calcium Total Bilirubin AST ALT Alkaline Phosphatase Total Protein Albumin Globulin Albumin/Globulin Ratio Lipase Urine Color YELLOW Urine Clarity CLEAR Urine pH 6.0 Ur Specific [place] 1.020 1.020 Urine Protein NEGATIVE Urine Glucose (UA) NEGATIVE Urine Ketones NEGATIVE Urine Occult Blood NEGATIVE Urine Nitrite NEGATIVE Urine Bilirubin NEGATIVE Urine Urobilinogen 0.2 (NORMAL) Ur Leukocyte Esterase NEGATIVE Ur Microscopic Review NOT INDICATED Urine Culture Comments NOT INDICATED Urine HCG, Qual NEGATIVE Last Dose Date Last Dose Time Salicylates Urine Opiates Screen NEGATIVE Ur Oxycodone Screen NEGATIVE Urine Methadone Screen NEGATIVE Ur Propoxyphene Screen NEGATIVE Acetaminophen Ur Barbiturates Screen NEGATIVE Ur Tricyclics Screen NEGATIVE Ur Phencyclidine Scrn NEGATIVE Ur Amphetamine Screen NEGATIVE U Methamphetamines Scrn NEGATIVE U Benzodiazepines Scrn NEGATIVE [place] Urine Cocaine Screen NEGATIVE U Cannabinoids Screen NEGATIVE Ethyl Alcohol 03/03/18 03/03/18 03/03/18 14:30 14:30 16:10 WBC 11.9 H RBC 4.84 Hgb 12.9 Hct 40.6 MCV 83.9 MCH 26.7 L MCHC 31.9 L RDW 15.3 H Plt Count 360 MPV 7.3 L Neut # (Auto) 7.9 H Lymph # (Auto) 3.1 [place] # (Auto) 0.7 Eos # (Auto) 0.1 Baso # (Auto) 0.1 Absolute Nucleated RBC 0.00 Nucleated RBC % 0.0 Sodium 138 Potassium 4.0 Chloride 106 Carbon Dioxide 21 Anion Gap 11.0 BUN 6 Creatinine 0.7 Estimated GFR (MDRD) 107 Glucose 90 Calcium 8.8 Total Bilirubin 0.3 AST 24 ALT 19 Alkaline Phosphatase 92 Total Protein 7.4 Albumin 3.2 Globulin 4.2 Albumin/Globulin Ratio 0.8 L Lipase 24 Urine Color Urine Clarity Urine pH Ur Specific [place] Urine Protein Urine Glucose (UA) Urine Ketones Urine Occult Blood Urine Nitrite Urine Bilirubin Urine Urobilinogen Ur Leukocyte Esterase Ur Microscopic Review Urine Culture Comments Urine HCG, Qual Last Dose Date UNK Last Dose Time UNK Salicylates < 6.0 Urine Opiates Screen Ur Oxycodone Screen Urine Methadone Screen Ur Propoxyphene Screen Acetaminophen < 10 L Ur Barbiturates Screen Ur Tricyclics Screen Ur Phencyclidine Scrn Ur Amphetamine Screen U Methamphetamines Scrn U Benzodiazepines Scrn [place] 0.11 Urine Cocaine Screen U Cannabinoids Screen Ethyl Alcohol < 5.0 PD MEDICAL DECISION MAKING - ED course Complexity details: reviewed old records, re-evaluated patient, considered differential, d/w patient, d/w physician practice consultant (Try to have social work talk with the patient but they were busy with other patients. Will have nursing staff help facilitate either crisis line or hospitalization. The patient states she does not feel respite care would help. She thinks she might need some medication adjustments.) - Sepsis Event Vital Signs: Vital Signs - 24 hr 03/03/18 03/03/18 03/03/18 14:14 17:30 20:45 Temperature 36.5 C 37.1 C Heart Rate 97 98 97 Respiratory 18 18 17 Rate Blood Pressure 144/92 H 138/88 H 130/78 O2 Saturation 97 97 96 03/04/18 03/04/18 06:53 07:23 Temperature 36.7 C 36.3 C L Heart Rate 79 80 Respiratory 18 14 Rate Blood Pressure 140/72 H 136/74 H O2 Saturation 97 97 Oxygen O2 Source Room air Departure - Departure Disposition: 65 Psych Hosp/Unit DC/Xfer Clinical Impression: Suicidal ideation Depression Qualifiers: Depression Type: unspecified Qualified Code(s): F32.9 - Major depressive disorder, single episode, unspecified Condition: Stable Record reviewed to determine appropriate education?: Yes Discharge Date/Time: 03/04/18 09:45
[2018-03-03 18:03] LABS: LITHIUM 0.11 mmol/L
[2018-03-04 07:26] VITALS: BP 136/74
== END 2018-03-04 09:45 ==
LOC: EDUNIT# → ED 14:11
DX: R45.851 Suicidal ideations (principal); F32.9 Major depressive disorder, single episode, unspecified
CPT/HCPCS: 36415; 80053; 80178; 80306; 80307; 80320; 80329; 81003; 81025; 83690; 85025; 93005; 99284; A9270; 81001; 87086; 99283

== ENCOUNTER 2018-04-02 13:57 | Outpatient (CLI) | payer BC, MEDICAID ==
[2018-04-02 19:30] LABS: ALBUMIN 3.4 g/dL (3.2-5.5); ALBUMIN/GLOBULIN RATIO 0.9 (1.0-2.2); ALKALINE PHOSPHATASE 96 IU/L (42-121); ALT ALANINE AMINOTRANSFERASE 19 IU/L (10-60); AST ASPARTATE AMINOTRANSFERASE 21 IU/L (10-42); BILIRUBIN,TOTAL 0.4 mg/dL (0.2-1.0); BUN - BLOOD UREA NITROGEN 9 mg/dL (6-20); CALCIUM 8.8 mg/dL (8.5-10.3); CARBON DIOXIDE - CO2 23 mmol/L (21-32); CHLORIDE 107 mmol/L (101-111); CHOL/HDL RATIO 3.8 (<4.4); CHOLESTEROL 184 mg/dL; CREATININE 0.7 mg/dL (0.4-1.0); GFR - MDRD 107 (>89); GLUCOSE 96 mg/dL (70-100); HDL CHOLESTEROL 49 mg/dL; LDL CHOLESTEROL,CALCULATED 102 mg/dL; LDL/HDL RATIO 2.1 (<4.4); SODIUM 137 mmol/L (135-145); TOTAL PROTEIN 7.2 g/dL (6.7-8.2); VLDL CHOLESTEROL 33 mg/dL
[2018-04-02 19:33] LABS: LITHIUM < 0.05 mmol/L
== END 2018-04-02 13:58 | disposition home or self-care (01) ==
LOC: LAB.N 13:57
PROVIDERS: ATTEND Registered Nurse
DX: F31.9 Bipolar disorder, unspecified (principal); Z79.899 Other long term (current) drug therapy
CPT/HCPCS: 36415; 80053; 80061; 80178; 83721; 84443

== ENCOUNTER 2018-05-06 01:28 | Outpatient (CLI) | payer BC, MEDICAID | END 2018-05-06 01:29 | disposition critical access hospital (66) | LOC: EMS 01:28 | PROVIDERS: ATTEND Surgery | DX: M25.579 Pain in unspecified ankle and joints of unspecified foot (principal) | CPT/HCPCS: A0425; A0429 ==

== ENCOUNTER 2018-05-06 01:52 | Emergency (ER) | payer BC, MEDICAID ==
--- NOTE | 2018-05-06 01:55 | ED Physician Documentation ---
PD HPI LOWER EXT INJURY - Stated complaint Stated Complaint: TWISTED ANKLE - History obtained from History obtained from: Patient, EMS - History of Present Illness PD HPI LOW EXT INJURY LOCATION: Right, Ankle Type of injury: Twist Where injury occurred: Home Timing - onset: Today Timing - details: Intermittant Improved by: Immobilization Worsened by: Moving, Palpating Similar symptoms before: Has not had sx before Recently seen: Not recently seen - Additional information Additional information: patient is a 22 year old female with multiple ED visits who is presenting to the emergency department for ankle pain and swelling after twisting her ankle earlier this evening. patient did not have a ride so she called ems. patient denies any other complaints at this time. 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 HEENT: None Psych: Depression, Anxiety, Bipolar disorder, Panic attacks, Post traumatic stress disorder, Other Musculoskeletal: None Derm: None - Past Surgical History Past Surgical History: Yes General: Cholecystectomy - Present Medications Home Medications: Ambulatory Orders Medication Instructions Recorded Confirmed Bupropion HCl [Bupropion Xl] 150 mg PO DAILY 07/30/17 01/29/18 Ethinyl Estradiol/Drospirenone 1 each PO DAILY 07/30/17 01/29/18 [Huma 28 Tablet] Hydroxyzine Pamoate [Vistaril] 50 mg PO DAILY 07/30/17 01/29/18 [place] Carbonate 600 mg PO BID 07/30/17 01/29/18 lamoTRIgine [LaMICtal] 300 mg PO DAILY PM 07/30/17 01/29/18 risperiDONE [Risperdal] 2 mg PO DAILY PM 07/30/17 01/29/18 - Allergies Allergies/Adverse Reactions: Allergies Allergy/AdvReac Type Severity Reaction Status Date / Time No Known Drug Allergies Allergy Verified 03/03/18 20:47 - Social History Does the pt smoke?: No Smoking Status: Never smoker Does the pt drink ETOH?: No Does the pt have substance abuse?: No - Immunizations Immunizations are current?: Yes - POLST Patient has POLST: No PD ED PE NORMAL - Vitals Vital signs reviewed: Yes - General General: Alert and oriented X 3, No acute distress - HEENT HEENT: Atraumatic - Cardiac Cardiac: RRR - Respiratory Respiratory: No respiratory distress - Derm Derm: Normal color - Neuro Eye Opening: Spontaneous PD ED PE EXPANDED - Extremities Extremities: Right ankle (tenderness to palpation, mild swelling) Results - Vitals Vitals: Vital Signs - 24 hr 05/06/18 05/06/18 02:00 03:16 Temperature 36.5 C Heart Rate 97 88 Respiratory 15 18 Rate Blood Pressure 143/87 H 141/84 H O2 Saturation 97 98 Oxygen O2 Source Room air - Rads (name of study) right ankle x-ray Radiology: Final report received (normal) PD MEDICAL DECISION MAKING - ED course Complexity details: reviewed old records, reviewed results, re-evaluated patient , considered differential, d/w patient ED course: patient was seen and examined at bedside. imaging was ordered. when patient returned from imaging results were reviewed. there was no acute fracture or dislocation. Patient was treated with ibuprofen and and kayce bandage. patient required no further work up and was stable for discharge with outpatient followup. - Sepsis Event Vital Signs: Vital Signs - 24 hr 05/06/18 05/06/18 02:00 03:16 Temperature 36.5 C Heart Rate 97 88 Respiratory 15 18 Rate Blood Pressure 143/87 H 141/84 H O2 Saturation 97 98 Oxygen O2 Source Room air Departure - Departure Disposition: 01 Home, Self Care Clinical Impression: Ankle sprain Condition: Good Instructions: ED Sprain Ankle Follow-Up: Collette Vaughn DNP [Primary Care Provider] - As Needed Comments: Your diagnostics today were within normal limits. there is no acute fracture or dislocation. You can take motrin or tylenol as needed for pain. You should ice your ankle at least 4 times a day. You can wear an kayce bandage as needed. You should follow up with your doctor for further care. You may return to the emergency department for worsening symptoms. Discharge Date/Time: 05/06/18 03:59
--- NOTE | 2018-05-06 02:36 | XRAY Report ---
Procedure Date: 05/06/2018 Accession Number: [id number] / [id number] Procedure: XR - Ankle 3 View RT CPT Code: FULL RESULT: EXAM: RIGHT ANKLE RADIOGRAPHY EXAM DATE: 05/06/2018 02:27 AM. CLINICAL HISTORY: Pain after injury. COMPARISON: None. TECHNIQUE: 3 views. FINDINGS: Bones: No fracture seen. Joints: No dislocation. Ankle mortise appears intact. No joint effusion identified. Soft Tissues: Soft tissue swelling. IMPRESSION: 1. No acute osseous abnormality seen. RADIA
[2018-05-06] MEDS ORDERED: IBUPROFEN 600 MG TABLET PO STA (03:02)
[2018-05-06 03:17] VITALS: BP 141/84
== END 2018-05-06 03:59 | disposition home or self-care (01) ==
LOC: EDUNIT# → ED 01:52
DX: S93.401A Sprain of unspecified ligament of right ankle, initial encounter (principal); X50.9XXA Other and unspecified overexertion or strenuous movements or postures, initial encounter; Y92.009 Unspecified place in unspecified non-institutional (private) residence as the place of occurrence of the external cause
CPT/HCPCS: 73610; 99282; 99283; A9270

== ENCOUNTER 2018-05-10 15:00 | Outpatient (CLI) | payer BC, MEDICAID | END 2018-05-10 15:01 | disposition critical access hospital (66) | LOC: EMS 15:00 | PROVIDERS: ATTEND Surgery | DX: R45.851 Suicidal ideations (principal) | CPT/HCPCS: A0425; A0429 ==

== ENCOUNTER 2018-05-10 15:22 | Emergency (ER) | payer BC, MEDICAID ==
[2018-05-10 15:57] LABS: BASOPHILS % (AUTO) 0.1 %; EOSINOPHILS # (AUTO) 0.1 10^3/uL (0.0-0.7); EOSINOPHILS % (AUTO) 0.9 %; HGB - HEMOGLOBIN 12.7 g/dL (12.0-16.0); LYMPHOCYTES # (AUTO) 2.5 10^3/uL (1.5-3.5); MEAN CORPUSCULAR HEMOGLOBIN 27.4 pg (27.0-31.0); MEAN CORPUSCULAR HGB CONC 33.3 g/dL (32.0-36.0); MEAN CORPUSCULAR VOLUME 82.1 fL (81.0-99.0); MEAN PLATELET VOLUME 7.2 fL (7.9-10.8); MONOCYTES # (AUTO) 0.6 10^3/uL (0.0-1.0); MONOCYTES % (AUTO) 5.8 %; NEUTROPHILS # (AUTO) 7.7 10^3/uL (1.5-6.6); NEUTROPHILS % (AUTO) 70.2 %; PLT - PLATELET COUNT 372 10^3/uL (130-450); RED BLOOD COUNT 4.63 10^6/uL (4.20-5.40); RED CELL DISTRIBUTION WIDTH 14.7 % (12.0-15.0)
[2018-05-10 16:04] LABS: ALBUMIN 3.4 g/dL (3.2-5.5); ALBUMIN/GLOBULIN RATIO 0.9 (1.0-2.2); ALKALINE PHOSPHATASE 96 IU/L (42-121); ALT ALANINE AMINOTRANSFERASE 19 IU/L (10-60); AST ASPARTATE AMINOTRANSFERASE 23 IU/L (10-42); BILIRUBIN,TOTAL 0.6 mg/dL (0.2-1.0); BUN - BLOOD UREA NITROGEN 6 mg/dL (6-20); CALCIUM 9.1 mg/dL (8.5-10.3); CARBON DIOXIDE - CO2 22 mmol/L (21-32); CHLORIDE 105 mmol/L (101-111); CREATININE 0.8 mg/dL (0.4-1.0); GFR - MDRD 91 (>89); GLUCOSE 125 mg/dL (70-100); LIPASE 29 U/L (22-51); SALICYLATE < 6.0 mg/dL; SODIUM 137 mmol/L (135-145); TOTAL PROTEIN 7.4 g/dL (6.7-8.2)
--- NOTE | 2018-05-10 16:04 | ED Physician Documentation ---
PD HPI MHE - Stated complaint Stated Complaint: SI - Chief complaint Chief Complaint: MHE - History obtained from History obtained from: Patient, EMS - History of Present Illness Primary symptom: Suicidal ideation Timing - onset: How many days ago (several) Pain level max: 0 Pain level now: 0 Contributing factors: No: Substance abuse - ETOH, Substance abuse - drugs Similar symptoms before: Diagnosis (depression, SI) Recently seen: Not recently seen - Additional information Additional information: Patient has been feeling increasingly suicidal over the past 2-3 days. She states that she does not feel like she can keep herself safe at home. Does not currently have a plan. She states she would like to be voluntarily hospitalized. 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 : None HEENT: None Psych: Depression, Anxiety, Bipolar disorder, Panic attacks, Post traumatic stress disorder, Other Musculoskeletal: None Derm: None - Past Surgical History Past Surgical History: Yes General: Cholecystectomy - Present Medications Home Medications: Ambulatory Orders Medication Instructions Recorded Confirmed Bupropion HCl [Bupropion Xl] 150 mg PO DAILY 07/30/17 01/29/18 Ethinyl Estradiol/Drospirenone 1 each PO DAILY 07/30/17 01/29/18 [Huma 28 Tablet] Hydroxyzine Pamoate [Vistaril] 50 mg PO DAILY 07/30/17 01/29/18 [place] Carbonate 600 mg PO BID 07/30/17 01/29/18 lamoTRIgine [LaMICtal] 300 mg PO DAILY PM 07/30/17 01/29/18 risperiDONE [Risperdal] 2 mg PO DAILY PM 07/30/17 01/29/18 - Allergies Allergies/Adverse Reactions: Allergies Allergy/AdvReac Type Severity Reaction Status Date / Time No Known Drug Allergies Allergy Verified 03/03/18 20:47 - Social History Does the pt smoke?: No Smoking Status: Never smoker Does the pt drink ETOH?: No Does the pt have substance abuse?: No - Immunizations Immunizations are current?: Yes - POLST Patient has POLST: No PD ED PE NORMAL - Vitals Vital signs reviewed: Yes - General General: Alert and oriented X 3, No acute distress, Well developed/nourished - HEENT HEENT: PERRL, Moist mucous membranes - Neck Neck: Supple, no meningeal sign - Cardiac Cardiac: RRR, Strong equal pulses - Respiratory Respiratory: No respiratory distress, Clear bilaterally - Abdomen Abdomen: Soft, Non tender, Non distended - Derm Derm: Warm and dry - Extremities Extremities: No edema, No calf tenderness / cord - Neuro Neuro: Alert and oriented X 3 - Psych Psych: Normal mood, Normal affect Results - Vitals Vitals: Vital Signs - 24 hr 05/10/18 05/10/18 15:24 19:38 Temperature 36.7 C Heart Rate 114 H 101 H Respiratory 16 16 Rate Blood Pressure 155/79 H 151/78 H O2 Saturation 97 98 Oxygen O2 Source Room air - Labs Labs: Laboratory Tests 05/10/18 05/10/18 05/10/18 15:45 15:45 15:45 WBC 11.0 H RBC 4.63 Hgb 12.7 Hct 38.0 MCV 82.1 MCH 27.4 MCHC 33.3 RDW 14.7 Plt Count 372 MPV 7.2 L Neut # (Auto) 7.7 H Lymph # (Auto) 2.5 [place] # (Auto) 0.6 Eos # (Auto) 0.1 Baso # (Auto) 0.0 Absolute Nucleated RBC 0.00 Nucleated RBC % 0.0 Sodium 137 Potassium 3.5 Chloride 105 Carbon Dioxide 22 Anion Gap 10.0 BUN 6 Creatinine 0.8 Estimated GFR (MDRD) 91 Glucose 125 H Calcium 9.1 Total Bilirubin 0.6 AST 23 ALT 19 Alkaline Phosphatase 96 Total Protein 7.4 Albumin 3.4 Globulin 4.0 Albumin/Globulin Ratio 0.9 L Lipase 29 TSH 1.54 Urine Color Urine Clarity Urine pH Ur Specific [place] Urine Protein Urine Glucose (UA) Urine Ketones Urine Occult Blood Urine Nitrite Urine Bilirubin Urine Urobilinogen Ur Leukocyte Esterase Urine RBC Urine WBC Ur Squamous Epith Cells Urine Bacteria Ur Microscopic Review Urine Culture Comments Urine HCG, Qual Salicylates < 6.0 Urine Opiates Screen Ur Oxycodone Screen Urine Methadone Screen Ur Propoxyphene Screen Acetaminophen < 10 L Ur Barbiturates Screen Ur Tricyclics Screen Ur Phencyclidine Scrn Ur Amphetamine Screen U Methamphetamines Scrn U Benzodiazepines Scrn Urine Cocaine Screen U Cannabinoids Screen Ethyl Alcohol < 5.0 05/10/18 05/10/18 16:22 16:22 WBC RBC Hgb Hct MCV MCH MCHC RDW Plt Count MPV Neut # (Auto) Lymph # (Auto) [place] # (Auto) Eos # (Auto) Baso # (Auto) Absolute Nucleated RBC Nucleated RBC % Sodium Potassium Chloride Carbon Dioxide Anion Gap BUN Creatinine Estimated GFR (MDRD) Glucose Calcium Total Bilirubin AST ALT Alkaline Phosphatase Total Protein Albumin Globulin Albumin/Globulin Ratio Lipase TSH Urine Color YELLOW Urine Clarity CLEAR Urine pH 5.5 Ur Specific [place] 1.025 Urine Protein NEGATIVE Urine Glucose (UA) NEGATIVE Urine Ketones NEGATIVE Urine Occult Blood TRACE-INTA Urine Nitrite NEGATIVE Urine Bilirubin NEGATIVE Urine Urobilinogen 0.2 (NORMAL) Ur Leukocyte Esterase TRACE H Urine RBC 0-5 Urine WBC 0-3 Ur Squamous Epith Cells MANY Squamous H Urine Bacteria Rare Ur Microscopic Review INDICATED Urine Culture Comments NOT INDICATED Urine HCG, Qual NEGATIVE Salicylates Urine Opiates Screen NEGATIVE Ur Oxycodone Screen NEGATIVE Urine Methadone Screen NEGATIVE Ur Propoxyphene Screen NEGATIVE Acetaminophen Ur Barbiturates Screen NEGATIVE Ur Tricyclics Screen NEGATIVE Ur Phencyclidine Scrn NEGATIVE Ur Amphetamine Screen NEGATIVE U Methamphetamines Scrn NEGATIVE U Benzodiazepines Scrn NEGATIVE Urine Cocaine Screen NEGATIVE U Cannabinoids Screen NEGATIVE Ethyl Alcohol PD MEDICAL DECISION MAKING - ED course Complexity details: considered differential, d/w patient ED course: Patient is medically clear for psychiatric care. Social work was consulted. Will seek voluntary placement Dr. Pierre ([facility]) graciously accepts in transfer [id number]. COBRA forms completed. - Sepsis Event Vital Signs: Vital Signs - 24 hr 05/10/18 05/10/18 15:24 19:38 Temperature 36.7 C Heart Rate 114 H 101 H Respiratory 16 16 Rate Blood Pressure 155/79 H 151/78 H O2 Saturation 97 98 Oxygen O2 Source Room air Departure - Departure Disposition: 65 Psych Hosp/Unit DC/Xfer Clinical Impression: Suicidal ideation Depression Qualifiers: Depression Type: unspecified Qualified Code(s): F32.9 - Major depressive disorder, single episode, unspecified Condition: Stable Discharge Date/Time: 05/10/18 23:05
[2018-05-10 16:05] LABS: ACETAMINOPHEN < 10 ug/mL (10-30)
[2018-05-10 16:40] LABS: MUDS CUTOFF CONCENTRATIONS CUTOFF CONC BELOW:
[2018-05-10 16:42] LABS: BILIRUBIN,URINE NEGATIVE (NEGATIVE); GLUCOSE, URINE (UA) NEGATIVE (NEGATIVE); KETONES,URINE (UA) NEGATIVE (NEGATIVE); LEUKOCYTE ESTERASE, URINE TRACE (NEGATIVE); NITRITE,URINE NEGATIVE (NEGATIVE); OCCULT BLOOD,URINE TRACE-INTA (NEGATIVE); PH,URINE 5.5 PH (5.0-7.5); PROTEIN,URINE NEGATIVE (NEGATIVE); UROBILINOGEN,URINE 0.2 (NORMAL) E.U./dL (NORMAL)
[2018-05-10 16:43] LABS: CLARITY,URINE CLEAR (CLEAR)
[2018-05-10 16:45] LABS: HCG UR QUAL NEGATIVE
[2018-05-10 17:00] LABS: BACTERIA,URINE Rare /HPF (None Seen); RBC,URINE 0-5 /HPF (0-5); SQUAMOUS EPITHELIAL CELL,UR MANY Squamous (<= Few)
[2018-05-10 17:07] LABS: AMPHETAMINE SCREEN,URINE NEGATIVE (NEGATIVE); BENZODIAZEPINES SCREEN, URINE NEGATIVE (NEGATIVE); COCAINE SCREEN URINE NEGATIVE (NEGATIVE); METHADONE SCREEN, URINE NEGATIVE (NEGATIVE); METHAMPHETAMINES SCREEN, URINE NEGATIVE (NEGATIVE); OPIATE SCREEN, URINE NEGATIVE (NEGATIVE); OXYCODONE SCREEN, URINE NEGATIVE (NEGATIVE); PROPOXYPHENE SCREEN, URINE NEGATIVE (NEGATIVE); TRICYCLIC ANTIDEPRESSANT,URINE NEGATIVE (NEGATIVE)
[2018-05-10 19:38] VITALS: BP 151/78
== END 2018-05-10 23:05 ==
LOC: EDUNIT# → ED 15:22
DX: R45.851 Suicidal ideations (principal); F32.9 Major depressive disorder, single episode, unspecified
CPT/HCPCS: 36415; 80053; 80306; 80307; 80320; 80329; 81001; 81003; 81025; 83690; 84443; 85025; 87086; 99283; 99284

== ENCOUNTER 2018-05-28 04:47 | Outpatient (CLI) | payer BC, MEDICAID | END 2018-05-28 04:48 | disposition critical access hospital (66) | LOC: EMS 04:47 | PROVIDERS: ATTEND Surgery | DX: R07.0 Pain in throat (principal); R11.2 Nausea with vomiting, unspecified | CPT/HCPCS: A0425; A0429 ==

== ENCOUNTER 2018-05-28 05:06 | Emergency (ER) | payer BC, MEDICAID ==
[2018-05-28 05:10] VITALS: BP 146/91
[2018-05-28] MEDS ORDERED: DEXAMETHASONE 10 MG/ML VIAL PO STA (05:16)
[2018-05-28] MEDS ORDERED: LIDOCAINE VISCOUS 2% 15 ML UDC MM STA (05:16)
[2018-05-28] MEDS ORDERED: ONDANSETRON ODT 4 MG TABLET TL STA (05:20)
--- NOTE | 2018-05-28 05:46 | ED Physician Documentation ---
PD HPI HEENT - Stated complaint Stated Complaint: SORE THROAT - Chief complaint Chief Complaint: Heent - History obtained from History obtained from: Patient - History of Present Illness Timing - onset: Today Timing - details: Abrupt onset, Still present Location: Throat Worsens: [place] Associated symptoms: No: Fever Similar symptoms before: Has not had sx before Recently seen: Emergency Dept - Additional information Additional information: Patient is a 22 year old female with a history of bipolar, anxiety and multiple ED visits who is presentig to the emergency department for sore throat. Patient states that she woke up with a burning in her throat. patient states that it woke up from sleep. Patient states that it goes down to her epigastric region. patient reports 4 episodes of nausea and vomiting. 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 HEENT: None Psych: Depression, Anxiety, Bipolar disorder, Panic attacks, Post traumatic stress disorder, Other Musculoskeletal: None Derm: None - Past Surgical History Past Surgical History: Yes General: Cholecystectomy - Present Medications Home Medications: Ambulatory Orders Medication Instructions Recorded Confirmed Bupropion HCl [Bupropion Xl] 150 mg PO DAILY 07/30/17 01/29/18 Ethinyl Estradiol/Drospirenone 1 each PO DAILY 07/30/17 01/29/18 [Huma 28 Tablet] Hydroxyzine Pamoate [Vistaril] 50 mg PO DAILY 07/30/17 01/29/18 [place] Carbonate 600 mg PO BID 07/30/17 01/29/18 lamoTRIgine [LaMICtal] 300 mg PO DAILY PM 07/30/17 01/29/18 risperiDONE [Risperdal] 2 mg PO DAILY PM 07/30/17 01/29/18 Lidocaine HCl [Lidocaine HCl 15 ml MM DAILY PRN #150 ml 05/28/18 Viscous] Ondansetron Odt [Zofran] 4 mg TL Q6H PRN #14 tablet 05/28/18 - Allergies Allergies/Adverse Reactions: Allergies Allergy/AdvReac Type Severity Reaction Status Date / Time No Known Drug Allergies Allergy Verified 05/28/18 05:10 - Social History Does the pt smoke?: No Smoking Status: Never smoker Does the pt drink ETOH?: No Does the pt have substance abuse?: No - Immunizations Immunizations are current?: Yes - POLST Patient has POLST: No PD ED PE NORMAL - Vitals Vital signs reviewed: Yes - General General: Alert and oriented X 3, No acute distress - HEENT HEENT: Atraumatic, PERRL, Moist mucous membranes, Pharynx benign - Neck Neck: Supple, no meningeal sign - Cardiac Cardiac: RRR - Respiratory Respiratory: No respiratory distress, Clear bilaterally - Abdomen Abdomen: Soft, Non tender, Non distended - Derm Derm: Normal color, No rash - Neuro Neuro: Alert and oriented X 3, No motor deficit, Normal speech Eye Opening: Spontaneous Motor: Obeys Commands Verbal: Oriented GCS Score: 15 PD ED PE EXPANDED - Psych Psych: Tearful, Anxious Results - Vitals Vitals: Vital Signs - 24 hr 05/28/18 05:07 Temperature 36.9 C Heart Rate 119 H Respiratory 16 Rate Blood Pressure 146/91 H O2 Saturation 97 Oxygen O2 Source Room air PD MEDICAL DECISION MAKING - ED course Complexity details: reviewed old records, reviewed results, re-evaluated patient, considered differential, d/w patient ED course: Patient was seen and examined at bedside. Patient was anxious but afebrile with normal vital signs and a benign physical exam. rapid strep was performed and patient was treated with viscous lidocaine and zofran. rapid strep was negative. Patient required no further work up and was stable for discharge with outpatient follow up. - Sepsis Event Vital Signs: Vital Signs - 24 hr 05/28/18 05:07 Temperature 36.9 C Heart Rate 119 H Respiratory 16 Rate Blood Pressure 146/91 H O2 Saturation 97 Oxygen O2 Source Room air Departure - Departure Disposition: 01 Home, Self Care Clinical Impression: GERD (gastroesophageal reflux disease) Condition: Good Instructions: GERD Dc Follow-Up: Collette Vaughn DNP [Primary Care Provider] - Prescriptions: Lidocaine HCl [Lidocaine HCl Viscous] 15 ml MM DAILY PRN #150 ml PRN Reason: Pain Ondansetron Odt [Zofran] 4 mg TL Q6H PRN #14 tablet PRN Reason: Nausea / Vomiting Comments: Your diagnostic today were within normal limits. Your symptoms are likely secondary to acid reflux. You should avoid acidic foods, spicy foods, greasy or fatty foods. You should eat small meals and don't lie down after eating. You should follow up with your doctor if your symptoms persist. You may return to the emergency department at any time for new, worsening or uncontrollable symptoms.
== END 2018-05-28 05:59 | disposition home or self-care (01) ==
LOC: EDUNIT# → ED 05:06
DX: K21.9 Gastro-esophageal reflux disease without esophagitis (principal)
CPT/HCPCS: 87070; 87430; 99283; Q0162

== ENCOUNTER → 2018-05-28 | Outpatient (CLI) | payer BC, MEDICAID | LOC: RT.N 14:45 | PROVIDERS: ATTEND Nurse Practitioner | DX: R07.89 Other chest pain (principal) | CPT/HCPCS: 93005 ==

== ENCOUNTER 2018-07-29 21:24 | Emergency (ER) | payer BC, MEDICAID ==
--- NOTE | 2018-07-30 00:11 | ED Physician Documentation ---
PD KENNEDY HEENT - Stated complaint Stated Complaint: SORE THROAT - Chief complaint Chief Complaint: Heent - History obtained from History obtained from: Patient - History of Present Illness Recently seen: Clinic (2 days ago) - Additional information Additional information: 12th [facility] ED visit this year, most for different c/o although most recent was May and similar c/o to this visit. Patient c/o sore throat and frequent coughing, burning sensation midline chest from epigastrium to upper chest. Patient feels that the sore throat is from her coughing which, in turn, she feels is due to reflux. She saw PMD earlier this week and was told that a GI evaluation is being arranged. Patient says the sore throat and coughing have prevented her from sleeping past 2 nights. Review of Systems Constitutional: denies: Fever Ears: denies: Ear pain Throat: reports: Sore throat Cardiac: denies: Chest pain / pressure Respiratory: reports: Cough. 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 HEENT: None Psych: Depression, Anxiety, Bipolar disorder, Panic attacks, Post traumatic stress disorder, Other Musculoskeletal: None Derm: None - Past Surgical History Past Surgical History: Yes General: Cholecystectomy - Present Medications Home Medications: Ambulatory Orders Medication Instructions Recorded Confirmed Bupropion HCl [Bupropion Xl] 150 mg PO DAILY 07/30/17 01/29/18 Ethinyl Estradiol/Drospirenone 1 each PO DAILY 07/30/17 01/29/18 [Huma 28 Tablet] [place] Carbonate 600 mg PO BID 07/30/17 01/29/18 lamoTRIgine [LaMICtal] 300 mg PO DAILY PM 07/30/17 01/29/18 risperiDONE [Risperdal] 2 mg PO DAILY PM 07/30/17 01/29/18 Lidocaine HCl [Lidocaine HCl 15 ml MM Q6HR PRN #100 ml 07/30/18 Viscous] guaiFENesin/CODEINE [Robitussin AC] 5 - 10 ml PO Q6H PRN #100 udc 07/30/18 - Allergies Allergies/Adverse Reactions: Allergies Allergy/AdvReac Type Severity Reaction Status Date / Time No Known Drug Allergies Allergy Verified 07/29/18 21:41 - Social History Does the pt smoke?: No Smoking Status: Never smoker Does the pt drink ETOH?: No Does the pt have substance abuse?: No - Immunizations Immunizations are current?: Yes - POLST Patient has POLST: No PD ED PE NORMAL - Vitals Vital signs reviewed: Yes - General General: Alert and oriented X 3, No acute distress, Well developed/nourished - HEENT HEENT: Moist mucous membranes, Other (mild posterior oropharyngeal erythema without swelling or exudate) - Neck Neck: Supple, no meningeal sign - Respiratory Respiratory: No respiratory distress, Clear bilaterally - Abdomen Abdomen: Soft, Non tender Results - Vitals Vitals: Vital Signs - 24 hr 07/29/18 07/29/18 07/30/18 21:29 22:39 00:39 Temperature 36.4 C L 36.8 C Heart Rate 116 H 101 H 110 H Respiratory 24 22 20 Rate Blood Pressure 148/96 H 143/103 H 140/101 H O2 Saturation 98 98 96 Oxygen O2 Source Room air - Labs Labs: Laboratory Tests 07/29/18 21:45 Group A Strep Rapid Negative PD MEDICAL DECISION MAKING - ED course Complexity details: reviewed old records, considered differential, d/w patient ED course: When I ask patient if she had relief with the lidocaine that was prescribed from this ED in May, she isn't certain but seems to recall this did provide some relief and thus I provided new rx for this (she says she doesn't have it anymore). Also rx robitussin AC for cough, pain. Departure - Departure Disposition: 01 Home, Self Care Clinical Impression: Sore throat Condition: Good Instructions: ED Pharyngitis Viral Report Pending Follow-Up: Collette Vaughn DNP [Primary Care Provider] - Prescriptions: Lidocaine HCl [Lidocaine HCl Viscous] 15 ml MM Q6HR PRN #100 ml PRN Reason: Pain guaiFENesin/CODEINE [Robitussin AC] 5 - 10 ml PO Q6H PRN #100 udc PRN Reason: Cough Discharge Date/Time: 07/30/18 00:48
[2018-07-30] MEDS: guaiFENesin/CODEINE 5 ML UDC PO STA (00:32)
[2018-07-30] MEDS: LIDOCAINE VISCOUS 2% 15 ML UDC MM STA (00:32)
[2018-07-30 00:40] VITALS: BP 140/101
== END 2018-07-30 00:48 | disposition home or self-care (01) ==
LOC: ED 21:24
DX: J02.9 Acute pharyngitis, unspecified (principal)
CPT/HCPCS: 87070; 87430; 99283

== ENCOUNTER 2018-09-18 17:27 | Emergency (ER) | payer BC, MEDICAID ==
[2018-09-18 17:57] LABS: MUDS CUTOFF CONCENTRATIONS CUTOFF CONC BELOW:
--- NOTE | 2018-09-18 17:58 | ED Physician Documentation ---
History of Present Illness - Stated complaint Stated Complaint: SI - Chief complaint Chief Complaint: MHE - History obtained from History obtained from: Patient - History of Present Illness Timing: Other (She is been suicidal for several weeks with plan now for a week or 2 with thoughts of hanging herself. She has a history of depression and suicidal ideation. Last admission for same was a few months ago at [facility] [place] per her. No possibility of and no drug or alcohol abuse. 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 HEENT: None Psych: Depression, Anxiety, Bipolar disorder, Panic attacks, Post traumatic stress disorder, Other Musculoskeletal: None Derm: None - Past Surgical History Past Surgical History: Yes General: Cholecystectomy - Present Medications Home Medications: Ambulatory Orders Medication Instructions Recorded Confirmed Bupropion HCl [Bupropion Xl] 150 mg PO DAILY 07/30/17 01/29/18 Ethinyl Estradiol/Drospirenone 1 each PO DAILY 07/30/17 01/29/18 [Huma 28 Tablet] [place] Carbonate 600 mg PO BID 07/30/17 01/29/18 lamoTRIgine [LaMICtal] 300 mg PO DAILY PM 07/30/17 01/29/18 risperiDONE [Risperdal] 2 mg PO DAILY PM 07/30/17 01/29/18 Omeprazole 20 09/18/18 - Allergies Allergies/Adverse Reactions: Allergies Allergy/AdvReac Type Severity Reaction Status Date / Time No Known Drug Allergies Allergy Verified 09/18/18 17:35 - Social History Does the pt smoke?: No Smoking Status: Never smoker Does the pt drink ETOH?: No Does the pt have substance abuse?: No - Family History Family history: reports: Non contributory - Immunizations Immunizations are current?: Yes - POLST Patient has POLST: No PD ED PE NORMAL - Vitals Vital signs reviewed: Yes - General General: Alert and oriented X 3, No acute distress - HEENT HEENT: PERRL, EOMI - Neck Neck: Supple, no meningeal sign, No bony TTP - Cardiac Cardiac: RRR, No murmur - Respiratory Respiratory: No respiratory distress, Clear bilaterally - Abdomen Abdomen: Normal bowel sounds, Soft, Non tender - Back Back: No CVA TTP, No spinal TTP - Derm Derm: Normal color, Warm and dry - Extremities Extremities: No edema, No calf tenderness / cord - Neuro Neuro: Alert and oriented X 3, Normal speech Results - Vitals Vitals: Vital Signs - 24 hr 09/18/18 17:32 Temperature 36.6 C Heart Rate 116 H Respiratory 20 Rate Blood Pressure 140/90 H O2 Saturation 97 Oxygen O2 Source Room air - Labs Labs: Laboratory Tests 09/18/18 09/18/18 09/18/18 17:40 17:50 17:50 WBC 10.8 RBC 4.76 Hgb 12.5 Hct 39.3 MCV 82.5 MCH 26.3 L MCHC 31.9 L RDW 14.4 Plt Count 385 MPV 7.1 L Neut # (Auto) 6.0 Lymph # (Auto) 3.5 [place] # (Auto) 1.0 Eos # (Auto) 0.2 Baso # (Auto) 0.1 Absolute Nucleated RBC 0.01 Nucleated RBC % 0.1 Sodium 139 Potassium 3.5 Chloride 108 Carbon Dioxide 21 Anion Gap 10.0 BUN 9 Creatinine 0.7 Estimated GFR (MDRD) 106 Glucose 118 H Calcium 8.7 Total Bilirubin < 0.2 L AST 23 ALT 17 Alkaline Phosphatase 87 Total Protein 7.4 Albumin 3.4 Globulin 4.0 Albumin/Globulin Ratio 0.9 L Lipase 33 Urine Color YELLOW Urine Clarity CLEAR Urine pH 7.0 Ur Specific [place] 1.020 Urine Protein NEGATIVE Urine Glucose (UA) NEGATIVE Urine Ketones NEGATIVE Urine Occult Blood NEGATIVE Urine Nitrite NEGATIVE Urine Bilirubin NEGATIVE Urine Urobilinogen 0.2 (NORMAL) Ur Leukocyte Esterase NEGATIVE Ur Microscopic Review NOT INDICATED Urine Culture Comments NOT INDICATED Last Dose Date Last Dose Time Salicylates < 6.0 Urine Opiates Screen NEGATIVE Ur Oxycodone Screen NEGATIVE Urine Methadone Screen NEGATIVE Ur Propoxyphene Screen NEGATIVE Acetaminophen < 10 L Ur Barbiturates Screen NEGATIVE Ur Tricyclics Screen NEGATIVE Ur Phencyclidine Scrn NEGATIVE Ur Amphetamine Screen NEGATIVE U Methamphetamines Scrn NEGATIVE U Benzodiazepines Scrn NEGATIVE [place] Urine Cocaine Screen NEGATIVE U Cannabinoids Screen NEGATIVE Ethyl Alcohol < 5.0 09/18/18 18:30 WBC RBC Hgb Hct MCV MCH MCHC RDW Plt Count MPV Neut # (Auto) Lymph # (Auto) [place] # (Auto) Eos # (Auto) Baso # (Auto) Absolute Nucleated RBC Nucleated RBC % Sodium Potassium Chloride Carbon Dioxide Anion Gap BUN Creatinine Estimated GFR (MDRD) Glucose Calcium Total Bilirubin AST ALT Alkaline Phosphatase Total Protein Albumin Globulin Albumin/Globulin Ratio Lipase Urine Color Urine Clarity Urine pH Ur Specific [place] Urine Protein Urine Glucose (UA) Urine Ketones Urine Occult Blood Urine Nitrite Urine Bilirubin Urine Urobilinogen Ur Leukocyte Esterase Ur Microscopic Review Urine Culture Comments Last Dose Date UNKNOWN Last Dose Time UNKNOWN Salicylates Urine Opiates Screen Ur Oxycodone Screen Urine Methadone Screen Ur Propoxyphene Screen Acetaminophen Ur Barbiturates Screen Ur Tricyclics Screen Ur Phencyclidine Scrn Ur Amphetamine Screen U Methamphetamines Scrn U Benzodiazepines Scrn [place] 0.46 Urine Cocaine Screen U Cannabinoids Screen Ethyl Alcohol PD MEDICAL DECISION MAKING - ED course ED course: 23-year-old with suicidal ideation. She is voluntary and would like to be hospitalized. 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 They have a tentatively accepted her for tomorrow morning, September 19. Departure - Departure Disposition: 65 Psych Hosp/Unit DC/Xfer Clinical Impression: Bipolar disorder, Suicidal ideation Condition: Stable
[2018-09-18 18:01] LABS: BASOPHILS # (AUTO) 0.1 10^3/uL (0.0-0.1); BASOPHILS % (AUTO) 0.8 %; EOSINOPHILS # (AUTO) 0.2 10^3/uL (0.0-0.7); EOSINOPHILS % (AUTO) 2.2 %; HGB - HEMOGLOBIN 12.5 g/dL (12.0-16.0); LYMPHOCYTES # (AUTO) 3.5 10^3/uL (1.5-3.5); LYMPHOCYTES % (AUTO) 32.1 %; MEAN CORPUSCULAR HEMOGLOBIN 26.3 pg (27.0-31.0); MEAN CORPUSCULAR HGB CONC 31.9 g/dL (32.0-36.0); MEAN CORPUSCULAR VOLUME 82.5 fL (81.0-99.0); MEAN PLATELET VOLUME 7.1 fL (7.9-10.8); MONOCYTES % (AUTO) 9.6 %; NEUTROPHILS % (AUTO) 55.3 %; PLT - PLATELET COUNT 385 10^3/uL (130-450); RED BLOOD COUNT 4.76 10^6/uL (4.20-5.40); RED CELL DISTRIBUTION WIDTH 14.4 % (12.0-15.0); WHITE BLOOD COUNT 10.8 x10^3/uL (4.8-10.8)
[2018-09-18 18:02] LABS: BILIRUBIN,URINE NEGATIVE (NEGATIVE); GLUCOSE, URINE (UA) NEGATIVE (NEGATIVE); KETONES,URINE (UA) NEGATIVE (NEGATIVE); LEUKOCYTE ESTERASE, URINE NEGATIVE (NEGATIVE); NITRITE,URINE NEGATIVE (NEGATIVE); OCCULT BLOOD,URINE NEGATIVE (NEGATIVE); PROTEIN,URINE NEGATIVE (NEGATIVE); UROBILINOGEN,URINE 0.2 (NORMAL) E.U./dL (NORMAL)
[2018-09-18 18:05] LABS: CLARITY,URINE CLEAR (CLEAR)
[2018-09-18 18:12] LABS: AMPHETAMINE SCREEN,URINE NEGATIVE (NEGATIVE); BENZODIAZEPINES SCREEN, URINE NEGATIVE (NEGATIVE); COCAINE SCREEN URINE NEGATIVE (NEGATIVE); METHADONE SCREEN, URINE NEGATIVE (NEGATIVE); METHAMPHETAMINES SCREEN, URINE NEGATIVE (NEGATIVE); OPIATE SCREEN, URINE NEGATIVE (NEGATIVE); OXYCODONE SCREEN, URINE NEGATIVE (NEGATIVE); PROPOXYPHENE SCREEN, URINE NEGATIVE (NEGATIVE); TRICYCLIC ANTIDEPRESSANT,URINE NEGATIVE (NEGATIVE)
[2018-09-18 18:18] LABS: ACETAMINOPHEN < 10 ug/mL (10-30); ALBUMIN 3.4 g/dL (3.2-5.5); ALBUMIN/GLOBULIN RATIO 0.9 (1.0-2.2); ALKALINE PHOSPHATASE 87 IU/L (42-121); ALT ALANINE AMINOTRANSFERASE 17 IU/L (10-60); AST ASPARTATE AMINOTRANSFERASE 23 IU/L (10-42); BILIRUBIN,TOTAL < 0.2 mg/dL (0.2-1.0); BUN - BLOOD UREA NITROGEN 9 mg/dL (6-20); CALCIUM 8.7 mg/dL (8.5-10.3); CARBON DIOXIDE - CO2 21 mmol/L (21-32); CHLORIDE 108 mmol/L (101-111); CREATININE 0.7 mg/dL (0.4-1.0); GFR - MDRD 106 (>89); GLUCOSE 118 mg/dL (70-100); LIPASE 33 U/L (22-51); SALICYLATE < 6.0 mg/dL; SODIUM 139 mmol/L (135-145); TOTAL PROTEIN 7.4 g/dL (6.7-8.2)
[2018-09-18 19:15] LABS: LITHIUM 0.46 mmol/L
[2018-09-19 02:47] VITALS: BP 119/78
== END 2018-09-19 09:35 ==
LOC: ED 17:27
DX: F31.9 Bipolar disorder, unspecified (principal); R45.851 Suicidal ideations
CPT/HCPCS: 36415; 80053; 80178; 80306; 80307; 80320; 80329; 81001; 81003; 83690; 85025; 87086; 99283; 99284

== ENCOUNTER 2018-11-01 06:08 | Day surgery (SDC) | payer BC, MEDICAID ==
[2018-11-01 06:48] LABS: HCG UR QUAL NEGATIVE
[2018-11-01] MEDS ORDERED: LACTATED RINGERS 1,000 ML IV ONE (06:51)
--- NOTE | 2018-11-01 07:11 | ANESTHESIA ---
Pre-Anesthesia VS, & Labs - Diagnosis Frequent cough/GERD - Procedure EGD Vital Signs: Temp Pulse Resp BP Pulse Ox 36.0 C L 91 20 145/75 H 97 11/01/18 06:32 11/01/18 06:32 11/01/18 06:32 11/01/18 06:32 11/01/18 06:32 Height 5 ft 4 in Weight (kg) 134.4 kg Body Mass Index 51.5 - NPO >8 hours - Is Patient ?: No - Lab Results Lab results reviewed: Yes Home Medications and Allergies Home Medications: Ambulatory Orders Amlodipine Besylate 10 mg PO 11/01/18 Bupropion HCl [Zyban] 150 mg PO 11/01/18 Ethinyl Estradiol/Drospirenone [Huma 28 Tablet] 1 each PO 11/01/18 [place] Carbonate 300 mg PO 11/01/18 Metoprolol Succinate 25 mg PO 11/01/18 Prazosin [Minipress] 1 mg PO DAILY 11/01/18 Sucralfate 1 gm PO 11/01/18 Bupropion HCl [Bupropion Xl] 150 mg PO DAILY 07/30/17 [place] Carbonate 600 mg PO BID 07/30/17 lamoTRIgine [LaMICtal] 300 mg PO DAILY PM 07/30/17 risperiDONE [Risperdal] 3 mg PO DAILY PM 07/30/17 Omeprazole 20 09/18/18 Amlodipine Besylate 10 mg PO 11/01/18 Bupropion HCl [Zyban] 150 mg PO 11/01/18 Ethinyl Estradiol/Drospirenone [Huma 28 Tablet] 1 each PO 11/01/18 [place] Carbonate 300 mg PO 11/01/18 Metoprolol Succinate 25 mg PO 11/01/18 Prazosin [Minipress] 1 mg PO DAILY 11/01/18 Sucralfate 1 gm PO 11/01/18 Allergies/Adverse Reactions: Allergies Allergy/AdvReac Type Severity Reaction Status Date / Time No Known Drug Allergies Allergy Verified 09/18/18 17:35 Anes History & Medical History - Anesthetic History Anesthesia Complications: reports: No previous complications - Medical History Cardiovascular: reports: Hypertension Pulmonary: reports: None, Other (probable sleep apnea) Gastrointestinal: reports: GERD, Other (Morbid obesity) Urinary: reports: None Neuro: reports: None Musculoskeletal: reports: None Endocrine/Autoimmune: reports: None Blood Disorders: reports: None Skin: reports: None Smoking Status: Never smoker Psychosocial: reports: Depression, Other (Bipolar) - Surgical History General: Cholecystectomy Exam General: Alert, Oriented x3, Cooperative, No acute distress Dental: WNL Mouth Openin Fingerbreadth Neck Mobility: Normal Mallampati classification: III Thyromental Distance: 4-6 cm Respiratory: Lungs clear, Normal breath sounds, No respiratory distress, No accessory muscle use Cardiovascular: Regular rate, Normal S1, Normal S2, No murmurs Mental/Cognitive Status: Alert/Oriented X3, Normal for patient Plan Anesthesia Type: MAC Consent for Procedure(s) Verified and Reviewed: Yes Code Status: Attempt Resuscitation ASA classification: 3-Severe systemic disease Is this case an emergency?: No
[2018-11-01] MEDS ORDERED: LIDO GARGLE 30 ML BOTTLE ONE (07:18)
[2018-11-01] MEDS ORDERED: fentaNYL 100 MCG/2 ML VIAL IVP ONE (07:52)
[2018-11-01] MEDS ORDERED: MIDAZOLAM 2 MG/2 ML VIAL IVP ONE (07:52)
[2018-11-01] MEDS ORDERED: PROPOFOL 200 MG/20 ML VIAL IVP ONE (07:52)
[2018-11-01 08:02] VITALS: BP 143/69
== END 2018-11-01 06:09 | disposition home or self-care (01) ==
LOC: SDS 06:08
PROVIDERS: ATTEND Surgery
PROC: 0DB78ZX Excision of Stomach, Pylorus, Via Natural or Artificial Opening Endoscopic, Diagnostic (ICD-10-PCS; principal; 2018-11-01 07:30)
DX: K21.9 Gastro-esophageal reflux disease without esophagitis (principal); R13.10 Dysphagia, unspecified; R05 Cough; K29.70 Gastritis, unspecified, without bleeding; K44.9 Diaphragmatic hernia without obstruction or gangrene; I10 Essential (primary) hypertension; E66.01 Morbid (severe) obesity due to excess calories; J45.909 Unspecified asthma, uncomplicated; F41.0 Panic disorder [episodic paroxysmal anxiety]; F31.9 Bipolar disorder, unspecified; Z68.43 Body mass index [BMI] 50.0-59.9, adult; Z79.899 Other long term (current) drug therapy
CPT/HCPCS: 43239; 81025; 87081; J7120

== ENCOUNTER 2018-11-17 10:58 | Emergency (ER) | payer BC, MEDICAID ==
[2018-11-17 12:13] LABS: BASOPHILS # (AUTO) 0.1 10^3/uL (0.0-0.1); BASOPHILS % (AUTO) 0.8 %; EOSINOPHILS # (AUTO) 0.2 10^3/uL (0.0-0.7); EOSINOPHILS % (AUTO) 2.1 %; HGB - HEMOGLOBIN 13.2 g/dL (12.0-16.0); LYMPHOCYTES # (AUTO) 2.9 10^3/uL (1.5-3.5); LYMPHOCYTES % (AUTO) 29.2 %; MEAN CORPUSCULAR HEMOGLOBIN 26.4 pg (27.0-31.0); MEAN CORPUSCULAR HGB CONC 32.9 g/dL (32.0-36.0); MEAN CORPUSCULAR VOLUME 80.4 fL (81.0-99.0); MEAN PLATELET VOLUME 7.1 fL (7.9-10.8); MONOCYTES # (AUTO) 0.8 10^3/uL (0.0-1.0); MONOCYTES % (AUTO) 7.7 %; NEUTROPHILS # (AUTO) 5.9 10^3/uL (1.5-6.6); NEUTROPHILS % (AUTO) 60.2 %; PLT - PLATELET COUNT 388 10^3/uL (130-450); RED BLOOD COUNT 4.99 10^6/uL (4.20-5.40); RED CELL DISTRIBUTION WIDTH 14.9 % (12.0-15.0); WHITE BLOOD COUNT 9.9 x10^3/uL (4.8-10.8)
[2018-11-17 12:29] LABS: ACETAMINOPHEN < 10 ug/mL (10-30); ALBUMIN 3.7 g/dL (3.2-5.5); ALKALINE PHOSPHATASE 100 IU/L (42-121); ALT ALANINE AMINOTRANSFERASE 19 IU/L (10-60); AST ASPARTATE AMINOTRANSFERASE 24 IU/L (10-42); BILIRUBIN,TOTAL 0.5 mg/dL (0.2-1.0); BUN - BLOOD UREA NITROGEN 8 mg/dL (6-20); CARBON DIOXIDE - CO2 22 mmol/L (21-32); CHLORIDE 106 mmol/L (101-111); CREATININE 0.7 mg/dL (0.4-1.0); GFR - MDRD 106 (>89); GLUCOSE 91 mg/dL (70-100); LIPASE 31 U/L (22-51); SALICYLATE < 6.0 mg/dL; SODIUM 139 mmol/L (135-145); TOTAL PROTEIN 7.5 g/dL (6.7-8.2)
[2018-11-17 12:30] LABS: MUDS CUTOFF CONCENTRATIONS CUTOFF CONC BELOW:
[2018-11-17 12:36] LABS: BILIRUBIN,URINE NEGATIVE (NEGATIVE); GLUCOSE, URINE (UA) NEGATIVE (NEGATIVE); KETONES,URINE (UA) NEGATIVE (NEGATIVE); LEUKOCYTE ESTERASE, URINE NEGATIVE (NEGATIVE); NITRITE,URINE NEGATIVE (NEGATIVE); OCCULT BLOOD,URINE MODERATE (NEGATIVE); PROTEIN,URINE NEGATIVE (NEGATIVE); UROBILINOGEN,URINE 0.2 (NORMAL) E.U./dL (NORMAL)
[2018-11-17 12:41] LABS: CLARITY,URINE CLEAR (CLEAR); HCG UR QUAL NEGATIVE
[2018-11-17 12:48] LABS: AMPHETAMINE SCREEN,URINE NEGATIVE (NEGATIVE); BENZODIAZEPINES SCREEN, URINE NEGATIVE (NEGATIVE); COCAINE SCREEN URINE NEGATIVE (NEGATIVE); METHADONE SCREEN, URINE NEGATIVE (NEGATIVE); METHAMPHETAMINES SCREEN, URINE NEGATIVE (NEGATIVE); OPIATE SCREEN, URINE NEGATIVE (NEGATIVE); OXYCODONE SCREEN, URINE NEGATIVE (NEGATIVE); PROPOXYPHENE SCREEN, URINE NEGATIVE (NEGATIVE); TRICYCLIC ANTIDEPRESSANT,URINE NEGATIVE (NEGATIVE)
--- NOTE | 2018-11-17 12:56 | ED Physician Documentation ---
PD HPI MHE - Stated complaint Stated Complaint: SI - Chief complaint Chief Complaint: MHE - Additional information Additional information: 23-year-old female presents the emergency department with increasing depression and suicidal thoughts. The patient plans to overdose on medications. The patient has not done anything to harm herself she just reports increasing thoughts of self-harm. The patient denies any acute medical complaints. Symptoms are described as severe. No other associated symptoms Review of Systems Constitutional: denies: Fever, Myalgias Eyes: denies: Discharge Ears: denies: Ear pain Nose: denies: Congestion Throat: denies: Sore throat Cardiac: denies: Chest pain / pressure Respiratory: denies: Cough GI: denies: Abdominal Pain : denies: Dysuria Skin: denies: Rash Musculoskeletal: denies: Neck pain Neurologic: denies: Generalized weakness Psychiatric: reports: Suicidal, Homicidal PD PAST MEDICAL HISTORY - Past Medical History Cardiovascular: Hypertension Respiratory: None, Other (probable sleep apnea) Neuro: None Endocrine/Autoimmune: None GI: GERD, 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 (Morbid obesity) 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 : None HEENT: None Psych: Anxiety, Bipolar disorder Musculoskeletal: None Derm: None - Past Surgical History Past Surgical History: Yes General: Cholecystectomy - Present Medications Home Medications: Ambulatory Orders Medication Instructions Recorded Confirmed Bupropion HCl [Bupropion Xl] 150 mg PO DAILY 07/30/17 11/17/18 [place] Carbonate 600 mg PO BID 07/30/17 11/17/18 lamoTRIgine [LaMICtal] 300 mg PO DAILY PM 07/30/17 11/17/18 risperiDONE [Risperdal] 3 mg PO DAILY PM 07/30/17 11/17/18 Omeprazole 20 tab PO DAILY 09/18/18 11/17/18 Amlodipine Besylate 10 mg PO DAILY 11/01/18 11/17/18 Bupropion HCl [Zyban] 150 mg PO DAILY 11/01/18 11/17/18 Ethinyl Estradiol/Drospirenone 1 each PO DAILY 11/01/18 11/17/18 [Huma 28 Tablet] Metoprolol Succinate 25 mg PO DAILY 11/01/18 11/17/18 Prazosin [Minipress] 1 mg PO DAILY 11/01/18 11/17/18 Sucralfate 1 gm PO PRN PRN 11/01/18 11/17/18 - Allergies Allergies/Adverse Reactions: Allergies Allergy/AdvReac Type Severity Reaction Status Date / Time No Known Drug Allergies Allergy Verified 11/17/18 11:15 - Social History Does the pt smoke?: No Smoking Status: Never smoker Does the pt drink ETOH?: No Does the pt have substance abuse?: No - Immunizations Immunizations are current?: Yes - POLST Patient has POLST: No PD ED PE NORMAL - General General: Alert and oriented X 3, No acute distress - HEENT HEENT: Atraumatic, PERRL, EOMI, Ears normal - Cardiac Cardiac: RRR - Respiratory Respiratory: No respiratory distress - Abdomen Abdomen: Soft, Non tender - Derm Derm: Normal color - Extremities Extremities: No deformity - Neuro Neuro: Alert and oriented X 3, Normal speech PD ED PE EXPANDED - Psych Psych: Depressed, Suicidal Results - Vitals Vitals: Vital Signs - 24 hr 11/17/18 11/17/18 11:11 16:34 Temperature 36.5 C 36.3 C L Heart Rate 98 84 Respiratory 14 15 Rate Blood Pressure 143/80 H 126/87 H O2 Saturation 97 99 Oxygen O2 Source Room air - Labs Labs: Laboratory Tests 11/17/18 11/17/18 11/17/18 11:06 11:06 11:06 WBC 9.9 RBC 4.99 Hgb 13.2 Hct 40.1 MCV 80.4 L MCH 26.4 L MCHC 32.9 RDW 14.9 Plt Count 388 MPV 7.1 L Neut # (Auto) 5.9 Lymph # (Auto) 2.9 [place] # (Auto) 0.8 Eos # (Auto) 0.2 Baso # (Auto) 0.1 Absolute Nucleated RBC 0.00 Nucleated RBC % 0.0 Sodium 139 Potassium 4.1 Chloride 106 Carbon Dioxide 22 Anion Gap 11.0 BUN 8 Creatinine 0.7 Estimated GFR (MDRD) 106 Glucose 91 Calcium 9.0 Total Bilirubin 0.5 AST 24 ALT 19 Alkaline Phosphatase 100 Total Protein 7.5 Albumin 3.7 Globulin 3.8 Albumin/Globulin Ratio 1.0 Lipase 31 TSH 1.89 Urine Color Urine Clarity Urine pH Ur Specific [place] Urine Protein Urine Glucose (UA) Urine Ketones Urine Occult Blood Urine Nitrite Urine Bilirubin Urine Urobilinogen Ur Leukocyte Esterase Urine RBC Urine WBC Ur Squamous Epith Cells Urine Bacteria Ur Microscopic Review Urine Culture Comments Urine HCG, Qual Salicylates < 6.0 Urine Opiates Screen Ur Oxycodone Screen Urine Methadone Screen Ur Propoxyphene Screen Acetaminophen < 10 L Ur Barbiturates Screen Ur Tricyclics Screen Ur Phencyclidine Scrn Ur Amphetamine Screen U Methamphetamines Scrn U Benzodiazepines Scrn Urine Cocaine Screen U Cannabinoids Screen Ethyl Alcohol < 5.0 11/17/18 11/17/18 12:24 12:24 WBC RBC Hgb Hct MCV MCH MCHC RDW Plt Count MPV Neut # (Auto) Lymph # (Auto) [place] # (Auto) Eos # (Auto) Baso # (Auto) Absolute Nucleated RBC Nucleated RBC % Sodium Potassium Chloride Carbon Dioxide Anion Gap BUN Creatinine Estimated GFR (MDRD) Glucose Calcium Total Bilirubin AST ALT Alkaline Phosphatase Total Protein Albumin Globulin Albumin/Globulin Ratio Lipase TSH Urine Color YELLOW Urine Clarity CLEAR Urine pH 7.0 Ur Specific [place] <=1.005 Urine Protein NEGATIVE Urine Glucose (UA) NEGATIVE Urine Ketones NEGATIVE Urine Occult Blood MODERATE H Urine Nitrite NEGATIVE Urine Bilirubin NEGATIVE Urine Urobilinogen 0.2 (NORMAL) Ur Leukocyte Esterase NEGATIVE Urine RBC 0-5 Urine WBC 0-3 Ur Squamous Epith Cells RARE Squamous Urine Bacteria Rare Ur Microscopic Review INDICATED Urine Culture Comments NOT INDICATED Urine HCG, Qual NEGATIVE Salicylates Urine Opiates Screen NEGATIVE Ur Oxycodone Screen NEGATIVE Urine Methadone Screen NEGATIVE Ur Propoxyphene Screen NEGATIVE Acetaminophen Ur Barbiturates Screen NEGATIVE Ur Tricyclics Screen NEGATIVE Ur Phencyclidine Scrn NEGATIVE Ur Amphetamine Screen NEGATIVE U Methamphetamines Scrn NEGATIVE U Benzodiazepines Scrn NEGATIVE Urine Cocaine Screen NEGATIVE U Cannabinoids Screen NEGATIVE Ethyl Alcohol PD MEDICAL DECISION MAKING - ED course ED course: The patient is medically cleared and social work was consulted Social work came and evaluated the patient, the patient still is actively having suicidal ideations and is voluntary. Social work will work on placement to help manage the patient's acute mental health issues. The patient has been accepted at [facility] and will be transported by EMS The patient's care will be turned over to the oncoming emergency physician while the patient waits in the emergency department for transport Departure - Departure Disposition: 65 Psych Hosp/Unit DC/Xfer Clinical Impression: Suicidal ideations Depression Qualifiers: Depression Type: unspecified Qualified Code(s): F32.9 - Major depressive disorder, single episode, unspecified
[2018-11-17 13:13] LABS: BACTERIA,URINE Rare /HPF (None Seen); RBC,URINE 0-5 /HPF (0-5); SQUAMOUS EPITHELIAL CELL,UR RARE Squamous (<= Few)
[2018-11-17 16:35] VITALS: BP 126/87
== END 2018-11-17 19:55 ==
LOC: ED 10:58
DX: R45.851 Suicidal ideations (principal); F32.9 Major depressive disorder, single episode, unspecified; I10 Essential (primary) hypertension; F41.9 Anxiety disorder, unspecified
CPT/HCPCS: 36415; 80053; 80306; 80307; 80320; 80329; 81001; 81003; 81025; 83690; 84443; 85025; 87086; 99283; 99284

== ENCOUNTER 2018-12-12 20:19 | Emergency (ER) | payer BC, MEDICAID ==
[2018-12-12 20:33] VITALS: BP 148/87
--- NOTE | 2018-12-12 20:45 | ED Physician Documentation ---
PD HPI HEENT - Stated complaint Stated Complaint: LT EAR PX - Chief complaint Chief Complaint: Heent - History obtained from History obtained from: Patient - History of Present Illness Timing - onset: How many hours ago (1) Timing - duration: Hours (1) Timing - details: Abrupt onset Pain level now: >10 Location: Left ear Improves: Nothing Worsens: Other (no exacerbating factors) Associated symptoms: No: Fever Similar symptoms before: Has not had sx before Recently seen: Emergency Dept (earlier this month for SI) - Additional information Additional information: c/o 1 hour severe left ear pain. 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 : None HEENT: None Psych: Depression, Anxiety, Bipolar disorder Musculoskeletal: None Derm: None - Past Surgical History Past Surgical History: Yes General: Cholecystectomy - Present Medications Home Medications: Ambulatory Orders Medication Instructions Recorded Confirmed Bupropion HCl [Bupropion Xl] 150 mg PO DAILY 07/30/17 11/17/18 [place] Carbonate 600 mg PO BID 07/30/17 11/17/18 lamoTRIgine [LaMICtal] 300 mg PO DAILY PM 07/30/17 11/17/18 risperiDONE [Risperdal] 3 mg PO DAILY PM 07/30/17 11/17/18 Omeprazole 20 tab PO DAILY 09/18/18 11/17/18 Amlodipine Besylate 10 mg PO DAILY 11/01/18 11/17/18 Bupropion HCl [Zyban] 150 mg PO DAILY 11/01/18 11/17/18 Ethinyl Estradiol/Drospirenone 1 each PO DAILY 11/01/18 11/17/18 [Huma 28 Tablet] Metoprolol Succinate 25 mg PO DAILY 11/01/18 11/17/18 Prazosin [Minipress] 1 mg PO DAILY 11/01/18 11/17/18 Sucralfate 1 gm PO PRN PRN 11/01/18 11/17/18 Amox/Clav 875/125 [Augmentin] 1 each PO Q12H #13 tablet 12/12/18 HYDROcod/ACETAM 5/325 [[place] 5/325] 1 - 2 ea PO Q6H PRN #14 tablet 12/12/18 - Allergies Allergies/Adverse Reactions: Allergies Allergy/AdvReac Type Severity Reaction Status Date / Time No Known Drug Allergies Allergy Verified 12/12/18 20:33 - Social History Does the pt smoke?: No Smoking Status: Never smoker Does the pt drink ETOH?: No Does the pt have substance abuse?: No - Immunizations Immunizations are current?: Yes - POLST Patient has POLST: No PD ED PE NORMAL - Vitals Vital signs reviewed: Yes - General General: Alert and oriented X 3, Well developed/nourished, Other (tearful due to pain) - HEENT HEENT: Moist mucous membranes - Neck Neck: Supple, no meningeal sign - Respiratory Respiratory: No respiratory distress, Clear bilaterally PD ED PE EXPANDED - HEENT HEENT: L TM red (mild erythema), L TM bulging, Tonsillar exudate (left tonsil with single punctate exudate (might be tonsillith)), Other (right TM normal) Results - Vitals Vitals: Vital Signs - 24 hr 12/12/18 20:30 Temperature 36.5 C Heart Rate 98 Respiratory 12 Rate Blood Pressure 148/87 H O2 Saturation 98 Oxygen O2 Source Room air PD MEDICAL DECISION MAKING - ED course Complexity details: considered differential, d/w patient Departure - Departure Disposition: 01 Home, Self Care Clinical Impression: Otitis media Condition: Good Instructions: ED Otitis Media Acute Adult Follow-Up: Collette Vaughn DNP [Primary Care Provider] - (3-5 days if symptoms persist) Prescriptions: Amox/Clav 875/125 [Augmentin] 1 each PO Q12H #13 tablet HYDROcod/ACETAM 5/325 [[place] 5/325] 1 - 2 ea PO Q6H PRN #14 tablet PRN Reason: Pain
[2018-12-12] MEDS ORDERED: HYDROcod/ACETAM 5/325 MG TABLET PO STA (20:59)
[2018-12-12] MEDS ORDERED: IBUPROFEN 600 MG TABLET PO STA (20:59)
[2018-12-12] MEDS ORDERED: AMOX/CLAV 875 MG/125 MG TABLET PO STA (20:59)
== END 2018-12-12 21:09 | disposition home or self-care (01) ==
LOC: ED 20:19
DX: H66.92 Otitis media, unspecified, left ear (principal); J02.9 Acute pharyngitis, unspecified; I10 Essential (primary) hypertension
CPT/HCPCS: 99283; A9270

== ENCOUNTER 2019-01-02 22:49 | Emergency (ER) | payer BC, MEDICAID ==
--- NOTE | 2019-01-02 23:43 | ED Physician Documentation ---
PD HPI HEENT - Stated complaint Stated Complaint: THROAT PX - Chief complaint Chief Complaint: Heent - History obtained from History obtained from: Patient - History of Present Illness Timing - onset: Today Timing - duration: Hours Timing - details: Abrupt onset, Still present Location: Throat Improves: Medication Worsens: [place] Associated symptoms: Congestion, Rhinorrhea Similar symptoms before: Diagnosis (tonsillitis and otitis) Recently seen: Emergency Dept - Additional information Additional information: 23-year-old female with a history of otitis and tonsillitis has had a recent otitis and she was treated at that time with Augmentin. This was about 3 weeks ago. She has had recurrence of symptoms with sore throat and difficulty swallowing. Review of Systems Constitutional: denies: Fever Eyes: denies: Decreased vision Ears: denies: Ear pain Nose: reports: Rhinorrhea / runny nose, Congestion Throat: reports: Sore throat Cardiac: denies: Chest pain / pressure, Palpitations Respiratory: reports: Cough. 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 : None HEENT: None Psych: Depression, Anxiety, Bipolar disorder Musculoskeletal: None Derm: None - Past Surgical History Past Surgical History: Yes General: Cholecystectomy - Present Medications Home Medications: Ambulatory Orders Medication Instructions Recorded Confirmed Bupropion HCl [Bupropion Xl] 150 mg PO DAILY 07/30/17 11/17/18 [place] Carbonate 600 mg PO BID 07/30/17 11/17/18 lamoTRIgine [LaMICtal] 300 mg PO DAILY PM 07/30/17 11/17/18 risperiDONE [Risperdal] 3 mg PO DAILY PM 07/30/17 11/17/18 Omeprazole 20 tab PO DAILY 09/18/18 11/17/18 Amlodipine Besylate 10 mg PO DAILY 11/01/18 11/17/18 Bupropion HCl [Zyban] 150 mg PO DAILY 11/01/18 11/17/18 Ethinyl Estradiol/Drospirenone 1 each PO DAILY 11/01/18 11/17/18 [Huma 28 Tablet] Metoprolol Succinate 25 mg PO DAILY 11/01/18 11/17/18 Prazosin [Minipress] 1 mg PO DAILY 11/01/18 11/17/18 Sucralfate 1 gm PO PRN PRN 11/01/18 11/17/18 Amox/Clav 875/125 [Augmentin] 1 each PO Q12H #13 tablet 12/12/18 HYDROcod/ACETAM 5/325 [[place] 5/325] 1 - 2 ea PO Q6H PRN #14 tablet 12/12/18 Azithromycin [Zithromax] 250 mg PO DAILY #4 tablet 01/02/19 - Allergies Allergies/Adverse Reactions: Allergies Allergy/AdvReac Type Severity Reaction Status Date / Time No Known Drug Allergies Allergy Verified 01/02/19 22:56 - Social History Does the pt smoke?: No Smoking Status: Former smoker Does the pt drink ETOH?: No Does the pt have substance abuse?: No - Immunizations Immunizations are current?: Yes - POLST Patient has POLST: No PD ED PE NORMAL - Vitals Vital signs reviewed: Yes (normal ) - General General: Alert and oriented X 3, No acute distress, Well developed/nourished, Other (obvious nasal congestion with nasal quality to the voice. ) - HEENT HEENT: Atraumatic, PERRL, EOMI, Other (both TM's are inflamed with distortion of the landmarks on the right side. The tonsils are cryptic with exudate. 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, No motor deficit, No sensory deficit, Normal speech Eye Opening: Spontaneous Motor: Obeys Commands Verbal: Oriented GCS Score: 15 - Psych Psych: Normal mood, Normal affect Results - Vitals Vitals: Vital Signs - 24 hr 01/02/19 22:55 Temperature 36.3 C L Heart Rate 90 Respiratory 16 Rate Blood Pressure 123/67 O2 Saturation 97 Oxygen O2 Source Room air - Labs Labs: Laboratory Tests 01/02/19 23:05 Group A Strep Rapid Negative PD MEDICAL DECISION MAKING - ED course Complexity details: reviewed old records, reviewed results, considered differential, d/w patient ED course: 23-year-old female with a sore throat and difficulty swallowing has some swelling to the back of her throat she has bilateral otitis again she was recently on some Augmentin. We will switch her to Azo throat today and give her a dose of dexamethasone. Departure - Departure Disposition: Home, Self Care Clinical Impression: Otitis media Qualifiers: Otitis media type: suppurative Chronicity: acute Laterality: bilateral Recurrence: recurrent Spontaneous tympanic membrane rupture: without spontaneous rupture Qualified Code(s): H66.006 - Acute suppurative otitis media without spontaneous rupture of ear drum, recurrent, bilateral Condition: Stable Instructions: ED Otitis Media Acute Adult Follow-Up: Collette Vaughn DNP [Primary Care Provider] - Prescriptions: Azithromycin [Zithromax] 250 mg PO DAILY #4 tablet
[2019-01-02] MEDS ORDERED: DEXAMETHASONE 10 MG/ML VIAL PO STA (23:48)
[2019-01-02] MEDS ORDERED: CHERRY SYRUP 10 ML UDC PO ONE (23:48)
[2019-01-02] MEDS ORDERED: AZITHROMYCIN 250 MG TABLET PO STA (23:48)
[2019-01-02 23:54] VITALS: BP 133/96
== END 2019-01-02 23:57 | disposition home or self-care (01) ==
LOC: ED 22:49
DX: H66.006 Acute suppurative otitis media without spontaneous rupture of ear drum, recurrent, bilateral (principal); I10 Essential (primary) hypertension; Z87.891 Personal history of nicotine dependence
CPT/HCPCS: 87070; 87430; 99283; A9270

== ENCOUNTER 2019-01-05 09:41 | Emergency (ER) | payer BC, MEDICAID ==
[2019-01-05 10:01] LABS: MUDS CUTOFF CONCENTRATIONS CUTOFF CONC BELOW:
[2019-01-05 10:03] LABS: BASOPHILS # (AUTO) 0.1 10^3/uL (0.0-0.1); BASOPHILS % (AUTO) 0.5 %; EOSINOPHILS # (AUTO) 0.6 10^3/uL (0.0-0.7); EOSINOPHILS % (AUTO) 4.1 %; HGB - HEMOGLOBIN 11.9 g/dL (12.0-16.0); LYMPHOCYTES # (AUTO) 4.8 10^3/uL (1.5-3.5); LYMPHOCYTES % (AUTO) 35.5 %; MEAN CORPUSCULAR HEMOGLOBIN 25.8 pg (27.0-31.0); MEAN CORPUSCULAR VOLUME 80.6 fL (81.0-99.0); MONOCYTES # (AUTO) 1.1 10^3/uL (0.0-1.0); MONOCYTES % (AUTO) 7.8 %; NEUTROPHILS % (AUTO) 52.1 %; PLT - PLATELET COUNT 357 10^3/uL (130-450); RED BLOOD COUNT 4.61 10^6/uL (4.20-5.40); RED CELL DISTRIBUTION WIDTH 15.2 % (12.0-15.0); WHITE BLOOD COUNT 13.5 x10^3/uL (4.8-10.8)
--- NOTE | 2019-01-05 10:07 | ED Physician Documentation ---
PD HPI MHE - Stated complaint Stated Complaint: SI - Chief complaint Chief Complaint: MHE - History obtained from History obtained from: Patient - History of Present Illness Primary symptom: Suicidal ideation Timing - onset: Chronic Pain level max: 0 Pain level now: 0 - Additional information Additional information: Patient with a long history of depression, states that she is planning to jump [place]. She does have a counselor. 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 HEENT: None Psych: Depression, Anxiety, Bipolar disorder Musculoskeletal: None Derm: None - Past Surgical History Past Surgical History: Yes General: Cholecystectomy - Present Medications Home Medications: Ambulatory Orders Medication Instructions Recorded Confirmed Bupropion HCl [Bupropion Xl] 300 mg PO DAILY 07/30/17 01/05/19 [place] Carbonate 300 mg PO BID 07/30/17 01/05/19 lamoTRIgine [LaMICtal] 300 mg PO DAILY PM 07/30/17 01/05/19 risperiDONE [Risperdal] 3 mg PO DAILY PM 07/30/17 01/05/19 Amlodipine Besylate 10 mg PO DAILY 11/01/18 01/05/19 Ethinyl Estradiol/Drospirenone 1 each PO DAILY 11/01/18 01/05/19 [Huma 28 Tablet] Metoprolol Succinate 25 mg PO DAILY 11/01/18 01/05/19 Prazosin [Minipress] 3 tab PO QPM 11/01/18 01/05/19 Bupropion HCl [Bupropion Xl] 300 mg DAILY 01/05/19 01/05/19 Metoprolol Succinate 25 mg PO BID 01/05/19 01/05/19 raNITIdine [Zantac] 150 mg DAILY 01/05/19 01/05/19 traZODone [Desyrel] 25 mg QPM 01/05/19 01/05/19 - Allergies Allergies/Adverse Reactions: Allergies Allergy/AdvReac Type Severity Reaction Status Date / Time No Known Drug Allergies Allergy Verified 01/02/19 22:56 - Social History Does the pt smoke?: No Smoking Status: Former smoker Does the pt drink ETOH?: No Does the pt have substance abuse?: No - Immunizations Immunizations are current?: Yes - POLST Patient has POLST: No PD ED PE NORMAL - Vitals Vital signs reviewed: Yes - General General: Alert and oriented X 3, No acute distress - HEENT HEENT: Moist mucous membranes - Neck Neck: Supple, no meningeal sign - Cardiac Cardiac: RRR - Respiratory Respiratory: No respiratory distress, Clear bilaterally - Abdomen Abdomen: Soft, Non tender, Non distended - Back Back: No spinal TTP - Derm Derm: Warm and dry - Extremities Extremities: No calf tenderness / cord - Neuro Neuro: Alert and oriented X 3 - Psych Psych: Normal mood, Normal affect Results - Vitals Vitals: Vital Signs - 24 hr 01/05/19 09:50 Temperature 36.8 C Heart Rate 111 H Respiratory 22 Rate Blood Pressure 141/87 H O2 Saturation 99 Oxygen O2 Source Room air - Labs Labs: Laboratory Tests 01/05/19 01/05/19 01/05/19 09:45 09:45 09:45 WBC 13.5 H RBC 4.61 Hgb 11.9 L Hct 37.1 MCV 80.6 L MCH 25.8 L MCHC 32.0 RDW 15.2 H Plt Count 357 MPV 7.0 L Neut # (Auto) 7.0 H Lymph # (Auto) 4.8 H [place] # (Auto) 1.1 H Eos # (Auto) 0.6 Baso # (Auto) 0.1 Absolute Nucleated RBC 0.01 Nucleated RBC % 0.0 Sodium 137 Potassium 3.4 L Chloride 104 Carbon Dioxide 20 L Anion Gap 13.0 BUN 9 Creatinine 0.9 Estimated GFR (MDRD) 79 L Glucose 98 Calcium 8.5 Total Bilirubin 0.4 AST 20 ALT 15 Alkaline Phosphatase 91 Total Protein 6.8 Albumin 3.2 Globulin 3.6 Albumin/Globulin Ratio 0.9 L Lipase 23 TSH 5.01 Urine Color Urine Clarity Urine pH Ur Specific [place] Urine Protein Urine Glucose (UA) Urine Ketones Urine Occult Blood Urine Nitrite Urine Bilirubin Urine Urobilinogen Ur Leukocyte Esterase Ur Microscopic Review Urine Culture Comments Urine HCG, Qual Salicylates < 6.0 Urine Opiates Screen Ur Oxycodone Screen Urine Methadone Screen Ur Propoxyphene Screen Acetaminophen < 10 L Ur Barbiturates Screen Ur Tricyclics Screen Ur Phencyclidine Scrn Ur Amphetamine Screen U Methamphetamines Scrn U Benzodiazepines Scrn Urine Cocaine Screen U Cannabinoids Screen Ethyl Alcohol < 5.0 01/05/19 01/05/19 09:50 09:50 WBC RBC Hgb Hct MCV MCH MCHC RDW Plt Count MPV Neut # (Auto) Lymph # (Auto) [place] # (Auto) Eos # (Auto) Baso # (Auto) Absolute Nucleated RBC Nucleated RBC % Sodium Potassium Chloride Carbon Dioxide Anion Gap BUN Creatinine Estimated GFR (MDRD) Glucose Calcium Total Bilirubin AST ALT Alkaline Phosphatase Total Protein Albumin Globulin Albumin/Globulin Ratio Lipase TSH Urine Color YELLOW Urine Clarity CLEAR Urine pH 7.0 Ur Specific [place] <=1.005 <=1.005 Urine Protein NEGATIVE Urine Glucose (UA) NEGATIVE Urine Ketones NEGATIVE Urine Occult Blood NEGATIVE Urine Nitrite NEGATIVE Urine Bilirubin NEGATIVE Urine Urobilinogen 0.2 (NORMAL) Ur Leukocyte Esterase NEGATIVE Ur Microscopic Review NOT INDICATED Urine Culture Comments NOT INDICATED Urine HCG, Qual NEGATIVE Salicylates Urine Opiates Screen NEGATIVE Ur Oxycodone Screen NEGATIVE Urine Methadone Screen NEGATIVE Ur Propoxyphene Screen NEGATIVE Acetaminophen Ur Barbiturates Screen NEGATIVE Ur Tricyclics Screen NEGATIVE Ur Phencyclidine Scrn NEGATIVE Ur Amphetamine Screen NEGATIVE U Methamphetamines Scrn NEGATIVE U Benzodiazepines Scrn NEGATIVE Urine Cocaine Screen NEGATIVE U Cannabinoids Screen NEGATIVE Ethyl Alcohol PD MEDICAL DECISION MAKING - ED course Complexity details: reviewed old records, reviewed results, re-evaluated patient, considered differential, d/w patient, d/w healthcare network pricing consultant ED course: Patient is medically clear for psychiatric care. Social work consulted and there is a bed available at [facility] in [place], patient will be transferred for further care. COBRA forms filled out at 1455. Patient transferred. [facility] accepts. Departure - Departure Disposition: 65 Psych Hosp/Unit DC/Xfer Clinical Impression: Suicidal ideation Bipolar disorder Qualifiers: Active/Remission status: currently active Current bipolar episode type: depressed Current episode severity: unspecified Qualified Code(s): F31.30 - Bipolar disorder, current episode depressed, mild or moderate severity, unspecified Condition: Stable
[2019-01-05 10:10] LABS: BILIRUBIN,URINE NEGATIVE (NEGATIVE); GLUCOSE, URINE (UA) NEGATIVE (NEGATIVE); KETONES,URINE (UA) NEGATIVE (NEGATIVE); LEUKOCYTE ESTERASE, URINE NEGATIVE (NEGATIVE); NITRITE,URINE NEGATIVE (NEGATIVE); OCCULT BLOOD,URINE NEGATIVE (NEGATIVE); PROTEIN,URINE NEGATIVE (NEGATIVE); UROBILINOGEN,URINE 0.2 (NORMAL) E.U./dL (NORMAL)
[2019-01-05 10:12] LABS: CLARITY,URINE CLEAR (CLEAR)
[2019-01-05 10:13] LABS: HCG UR QUAL NEGATIVE
[2019-01-05 10:21] LABS: AMPHETAMINE SCREEN,URINE NEGATIVE (NEGATIVE); BENZODIAZEPINES SCREEN, URINE NEGATIVE (NEGATIVE); COCAINE SCREEN URINE NEGATIVE (NEGATIVE); METHADONE SCREEN, URINE NEGATIVE (NEGATIVE); METHAMPHETAMINES SCREEN, URINE NEGATIVE (NEGATIVE); OPIATE SCREEN, URINE NEGATIVE (NEGATIVE); OXYCODONE SCREEN, URINE NEGATIVE (NEGATIVE); PROPOXYPHENE SCREEN, URINE NEGATIVE (NEGATIVE); TRICYCLIC ANTIDEPRESSANT,URINE NEGATIVE (NEGATIVE)
[2019-01-05 10:22] LABS: ACETAMINOPHEN < 10 ug/mL (10-30); ALBUMIN 3.2 g/dL (3.2-5.5); ALBUMIN/GLOBULIN RATIO 0.9 (1.0-2.2); ALKALINE PHOSPHATASE 91 IU/L (42-121); ALT ALANINE AMINOTRANSFERASE 15 IU/L (10-60); AST ASPARTATE AMINOTRANSFERASE 20 IU/L (10-42); BILIRUBIN,TOTAL 0.4 mg/dL (0.2-1.0); BUN - BLOOD UREA NITROGEN 9 mg/dL (6-20); CALCIUM 8.5 mg/dL (8.5-10.3); CARBON DIOXIDE - CO2 20 mmol/L (21-32); CHLORIDE 104 mmol/L (101-111); CREATININE 0.9 mg/dL (0.4-1.0); GFR - MDRD 79 (>89); GLUCOSE 98 mg/dL (70-100); LIPASE 23 U/L (22-51); SALICYLATE < 6.0 mg/dL; SODIUM 137 mmol/L (135-145); TOTAL PROTEIN 6.8 g/dL (6.7-8.2)
[2019-01-05 18:15] VITALS: BP 142/84
== END 2019-01-05 18:20 ==
LOC: ED 09:41
DX: R45.851 Suicidal ideations (principal); F31.30 Bipolar disorder, current episode depressed, mild or moderate severity, unspecified; I10 Essential (primary) hypertension; Z87.891 Personal history of nicotine dependence
CPT/HCPCS: 36415; 80053; 80306; 80307; 80320; 80329; 81001; 81003; 81025; 83690; 84443; 85025; 87086; 99283; 99285

== ENCOUNTER 2019-03-10 10:39 | Emergency (ER) | payer BC, MEDICAID ==
--- NOTE | 2019-03-10 11:28 | ED Physician Documentation ---
History of Present Illness - Stated complaint Stated Complaint: SI - Chief complaint Chief Complaint: General - History obtained from History obtained from: Patient - Additonal information Additional information: Patient is a 23-year-old female with multiple psychiatric diagnoses including depression and anxiety presenting with generalized suicidal ideation without plan. Patient denies any particular trigger and states that she has been compliant with all medications. Patient also denies recent alcohol or recreational drug use. Patient does report self harming behavior such as cutting in the past, but denies currently. Patient denies specific plan of suicide, but has attempted in the past with medication overdoses. Patient attends therapy regularly. Patient has received inpatient care recently. Patient denies hallucinations or paranoia. No other medical complaints. No other improving or worsening factors noted. Review of Systems Constitutional: denies: Fever Respiratory: denies: Dyspnea GI: denies: Abdominal Pain, Vomiting, Diarrhea : denies: Dysuria Psychiatric: reports: Depressed, Suicidal. 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 : None HEENT: None Psych: Depression, Anxiety, Bipolar disorder Musculoskeletal: None Derm: None - Past Surgical History Past Surgical History: Yes General: Cholecystectomy - Present Medications Home Medications: Ambulatory Orders Medication Instructions Recorded Confirmed [place] Carbonate 300 mg PO BID 07/30/17 01/05/19 lamoTRIgine [LaMICtal] 300 mg PO DAILY PM 07/30/17 03/10/19 risperiDONE [Risperdal] 3 mg PO DAILY PM 07/30/17 03/10/19 Amlodipine Besylate 10 mg PO DAILY 11/01/18 03/10/19 Ethinyl Estradiol/Drospirenone 1 each PO DAILY 11/01/18 03/10/19 [Huma 28 Tablet] Prazosin [Minipress] 3 tab PO QPM 11/01/18 03/10/19 Bupropion HCl [Bupropion Xl] 300 mg DAILY 01/05/19 03/10/19 Metoprolol Succinate 25 mg PO BID 01/05/19 01/05/19 raNITIdine [Zantac] 150 mg DAILY 01/05/19 03/10/19 traZODone [Desyrel] 100 mg QPM 01/05/19 03/10/19 - Allergies Allergies/Adverse Reactions: Allergies Allergy/AdvReac Type Severity Reaction Status Date / Time No Known Drug Allergies Allergy Verified 03/10/19 10:47 - Social History Does the pt smoke?: No Smoking Status: Former smoker Does the pt drink ETOH?: No Does the pt have substance abuse?: No - Immunizations Immunizations are current?: Yes - POLST Patient has POLST: No PD ED PE NORMAL - Vitals Vital signs reviewed: Yes - General General: Alert and oriented X 3, No acute distress, Well developed/nourished - HEENT HEENT: Atraumatic, Moist mucous membranes - Cardiac Cardiac: RRR, No murmur - Respiratory Respiratory: No respiratory distress, Clear bilaterally - Abdomen Abdomen: Soft, Non tender, Non distended - Derm Derm: Normal color, Warm and dry, No rash - Extremities Extremities: No deformity, No tenderness to palpate - Neuro Neuro: Alert and oriented X 3, No motor deficit, No sensory deficit - Psych Psych: Other (Slightly flat affect, admits to SI) Results - Vitals Vitals: Vital Signs - 24 hr 03/10/19 03/10/19 10:42 14:01 Temperature 36.5 C 36.4 C L Heart Rate 87 77 Respiratory 18 17 Rate Blood Pressure 140/114 H 121/68 O2 Saturation 94 97 Oxygen O2 Source Room air - Labs Labs: Laboratory Tests 03/10/19 03/10/19 03/10/19 11:01 11:01 11:33 WBC 9.5 RBC 4.44 Hgb 11.6 L Hct 36.8 L MCV 82.9 MCH 26.1 L MCHC 31.5 L RDW 14.6 Plt Count 328 MPV 9.2 Neut # (Auto) 6.1 Lymph # (Auto) 2.5 [place] # (Auto) 0.7 Eos # (Auto) 0.2 Baso # (Auto) 0.0 Absolute Nucleated RBC 0.00 Nucleated RBC % 0.0 Sodium Potassium Chloride Carbon Dioxide Anion Gap BUN Creatinine Estimated GFR (MDRD) Glucose Calcium Total Bilirubin AST ALT Alkaline Phosphatase Total Protein Albumin Globulin Albumin/Globulin Ratio Lipase TSH Urine Color YELLOW Urine Clarity HAZY Urine pH 7.5 Ur Specific [place] 1.010 Urine Protein NEGATIVE Urine Glucose (UA) NEGATIVE Urine Ketones NEGATIVE Urine Occult Blood LARGE H Urine Nitrite NEGATIVE Urine Bilirubin NEGATIVE Urine Urobilinogen 0.2 (NORMAL) Ur Leukocyte Esterase TRACE H Urine RBC TNTC H Urine WBC 0-3 Ur Squamous Epith Cells FEW Squamous Urine Bacteria Rare Ur Microscopic Review INDICATED Urine Culture Comments INDICATED Urine HCG, Qual NEGATIVE Salicylates Urine Opiates Screen NEGATIVE Ur Oxycodone Screen NEGATIVE Urine Methadone Screen NEGATIVE Ur Propoxyphene Screen NEGATIVE Acetaminophen Ur Barbiturates Screen NEGATIVE Ur Tricyclics Screen NEGATIVE Ur Phencyclidine Scrn NEGATIVE Ur Amphetamine Screen NEGATIVE U Methamphetamines Scrn NEGATIVE U Benzodiazepines Scrn NEGATIVE Urine Cocaine Screen NEGATIVE U Cannabinoids Screen NEGATIVE Ethyl Alcohol 03/10/19 03/10/19 11:33 11:33 WBC RBC Hgb Hct MCV MCH MCHC RDW Plt Count MPV Neut # (Auto) Lymph # (Auto) [place] # (Auto) Eos # (Auto) Baso # (Auto) Absolute Nucleated RBC Nucleated RBC % Sodium 138 Potassium 3.9 Chloride 108 Carbon Dioxide 20 L Anion Gap 10.0 BUN 9 Creatinine 0.7 Estimated GFR (MDRD) 106 Glucose 94 Calcium 8.8 Total Bilirubin 0.4 AST 21 ALT 17 Alkaline Phosphatase 75 Total Protein 6.7 Albumin 3.2 Globulin 3.5 Albumin/Globulin Ratio 0.9 L Lipase 23 TSH 1.47 Urine Color Urine Clarity Urine pH Ur Specific [place] Urine Protein Urine Glucose (UA) Urine Ketones Urine Occult Blood Urine Nitrite Urine Bilirubin Urine Urobilinogen Ur Leukocyte Esterase Urine RBC Urine WBC Ur Squamous Epith Cells Urine Bacteria Ur Microscopic Review Urine Culture Comments Urine HCG, Qual Salicylates < 6.0 Urine Opiates Screen Ur Oxycodone Screen Urine Methadone Screen Ur Propoxyphene Screen Acetaminophen < 10 L Ur Barbiturates Screen Ur Tricyclics Screen Ur Phencyclidine Scrn Ur Amphetamine Screen U Methamphetamines Scrn U Benzodiazepines Scrn Urine Cocaine Screen U Cannabinoids Screen Ethyl Alcohol < 5.0 PD MEDICAL DECISION MAKING - ED course Complexity details: reviewed results, considered differential, d/w patient ED course: Patient with psychiatric illness presenting with worsening of her known depression and new suicidal ideation. Patient interested in placement. Do not find evidence of trauma to indicate self-harm on exam. Patient denies recreational drug use or alcohol. Screening lab work and urinalysis obtained which was relatively unremarkable except for presence of blood in urine. Patient had trace leukocyte esterase, but do not have high suspicion for UTI at this time. Drug screen negative. Social work consulted and arranging for placement. Departure - Departure Clinical Impression: Suicidal ideation Condition: Fair
[2019-03-10 11:44] LABS: MUDS CUTOFF CONCENTRATIONS CUTOFF CONC BELOW:
[2019-03-10 11:48] LABS: BASOPHILS % (AUTO) 0.3 %; EOSINOPHILS # (AUTO) 0.2 10^3/uL (0.0-0.7); EOSINOPHILS % (AUTO) 1.7 %; HGB - HEMOGLOBIN 11.6 g/dL (12.0-16.0); LYMPHOCYTES # (AUTO) 2.5 10^3/uL (1.5-3.5); LYMPHOCYTES % (AUTO) 26.5 %; MEAN CORPUSCULAR HEMOGLOBIN 26.1 pg (27.0-31.0); MEAN CORPUSCULAR HGB CONC 31.5 g/dL (32.0-36.0); MEAN CORPUSCULAR VOLUME 82.9 fL (81.0-99.0); MEAN PLATELET VOLUME 9.2 fL (7.9-10.8); MONOCYTES # (AUTO) 0.7 10^3/uL (0.0-1.0); MONOCYTES % (AUTO) 7.6 %; NEUTROPHILS # (AUTO) 6.1 10^3/uL (1.5-6.6); NEUTROPHILS % (AUTO) 63.7 %; PLT - PLATELET COUNT 328 10^3/uL (130-450); RED BLOOD COUNT 4.44 10^6/uL (4.20-5.40); RED CELL DISTRIBUTION WIDTH 14.6 % (12.0-15.0); WHITE BLOOD COUNT 9.5 x10^3/uL (4.8-10.8)
[2019-03-10 11:50] LABS: BILIRUBIN,URINE NEGATIVE (NEGATIVE); GLUCOSE, URINE (UA) NEGATIVE (NEGATIVE); KETONES,URINE (UA) NEGATIVE (NEGATIVE); LEUKOCYTE ESTERASE, URINE TRACE (NEGATIVE); NITRITE,URINE NEGATIVE (NEGATIVE); OCCULT BLOOD,URINE LARGE (NEGATIVE); PH,URINE 7.5 PH (5.0-7.5); PROTEIN,URINE NEGATIVE (NEGATIVE); UROBILINOGEN,URINE 0.2 (NORMAL) E.U./dL (NORMAL)
[2019-03-10 11:52] LABS: CLARITY,URINE HAZY (CLEAR); HCG UR QUAL NEGATIVE
[2019-03-10 11:56] LABS: ACETAMINOPHEN < 10 ug/mL (10-30); ALBUMIN 3.2 g/dL (3.2-5.5); ALBUMIN/GLOBULIN RATIO 0.9 (1.0-2.2); ALKALINE PHOSPHATASE 75 IU/L (42-121); ALT ALANINE AMINOTRANSFERASE 17 IU/L (10-60); AST ASPARTATE AMINOTRANSFERASE 21 IU/L (10-42); BILIRUBIN,TOTAL 0.4 mg/dL (0.2-1.0); BUN - BLOOD UREA NITROGEN 9 mg/dL (6-20); CALCIUM 8.8 mg/dL (8.5-10.3); CARBON DIOXIDE - CO2 20 mmol/L (21-32); CHLORIDE 108 mmol/L (101-111); CREATININE 0.7 mg/dL (0.4-1.0); GFR - MDRD 106 (>89); GLUCOSE 94 mg/dL (70-100); LIPASE 23 U/L (22-51); SALICYLATE < 6.0 mg/dL; SODIUM 138 mmol/L (135-145); TOTAL PROTEIN 6.7 g/dL (6.7-8.2)
[2019-03-10 12:04] LABS: AMPHETAMINE SCREEN,URINE NEGATIVE (NEGATIVE); BENZODIAZEPINES SCREEN, URINE NEGATIVE (NEGATIVE); COCAINE SCREEN URINE NEGATIVE (NEGATIVE); METHADONE SCREEN, URINE NEGATIVE (NEGATIVE); METHAMPHETAMINES SCREEN, URINE NEGATIVE (NEGATIVE); OPIATE SCREEN, URINE NEGATIVE (NEGATIVE); OXYCODONE SCREEN, URINE NEGATIVE (NEGATIVE); PROPOXYPHENE SCREEN, URINE NEGATIVE (NEGATIVE); TRICYCLIC ANTIDEPRESSANT,URINE NEGATIVE (NEGATIVE)
[2019-03-10 12:11] LABS: BACTERIA,URINE Rare /HPF (None Seen); RBC,URINE TNTC /HPF (0-5); SQUAMOUS EPITHELIAL CELL,UR FEW Squamous (<= Few)
[2019-03-10 14:02] VITALS: BP 121/68
== END 2019-03-10 17:20 ==
LOC: ED 10:39
DX: F32.9 Major depressive disorder, single episode, unspecified (principal); F41.9 Anxiety disorder, unspecified; R45.851 Suicidal ideations; I10 Essential (primary) hypertension; Z87.891 Personal history of nicotine dependence; R31.9 Hematuria, unspecified
CPT/HCPCS: 36415; 80053; 80306; 80307; 80320; 80329; 81001; 81003; 81025; 83690; 84443; 85025; 87086; 99283; 99284

== ENCOUNTER 2019-05-30 21:44 | Emergency (ER) | payer BC, MEDICAID ==
[2019-05-30 22:25] LABS: MUDS CUTOFF CONCENTRATIONS CUTOFF CONC BELOW:
--- NOTE | 2019-05-30 22:26 | ED Physician Documentation ---
PD HPI MHE - Stated complaint Stated Complaint: MHE - Chief complaint Chief Complaint: MHE - History obtained from History obtained from: Patient, Caregiver (accompanied by [employer] employee) - History of Present Illness Primary symptom: Suicidal ideation, Depression Timing - onset: How many weeks ago (1) Contributing factors: Family Recently seen: Emergency Dept (several previous [facility] ED visits in 2019, most recent before tonight was in February for SI) - Additional information Additional information: living at [employer], brought in by someone who works at [employer] when they became concerned with suicidal statements the patient had been making tonight. Patient admits to increased feelings of depression and suicidal thoughts over the past week; she says this was triggered by her sister telling her (patient) that she is selfish and worthless. Patient says she considers jumping off a bridge or jumping in front of a car as a means of suicide. Patient tells me that she does not feel particularly more suicidal or depressed than she has been chronically, although she tells me she is "not feeling right in my mind". Review of Systems Cardiac: reports: Reviewed and negative Respiratory: reports: Reviewed and negative GI: reports: Reviewed and negative Neurologic: denies: Headache Psychiatric: reports: Depressed, Suicidal. 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 : None HEENT: None Psych: Depression, Anxiety, Bipolar disorder Musculoskeletal: None Derm: None - Past Surgical History Past Surgical History: Yes General: Cholecystectomy - Present Medications Home Medications: Ambulatory Orders Medication Instructions Recorded Confirmed [place] Carbonate 300 mg PO BID 07/30/17 01/05/19 lamoTRIgine [LaMICtal] 300 mg PO DAILY PM 07/30/17 03/10/19 risperiDONE [Risperdal] 3 mg PO DAILY PM 07/30/17 03/10/19 Amlodipine Besylate 10 mg PO DAILY 11/01/18 03/10/19 Ethinyl Estradiol/Drospirenone 1 each PO DAILY 11/01/18 03/10/19 [Huma 28 Tablet] Prazosin [Minipress] 3 tab PO QPM 11/01/18 03/10/19 Bupropion HCl [Bupropion Xl] 300 mg DAILY 01/05/19 03/10/19 Metoprolol Succinate 25 mg PO BID 01/05/19 01/05/19 raNITIdine [Zantac] 150 mg DAILY 01/05/19 03/10/19 traZODone [Desyrel] 100 mg QPM 01/05/19 03/10/19 - Allergies Allergies/Adverse Reactions: Allergies Allergy/AdvReac Type Severity Reaction Status Date / Time No Known Drug Allergies Allergy Verified 05/30/19 21:53 - Social History Does the pt smoke?: No Smoking Status: Former smoker Does the pt drink ETOH?: No Does the pt have substance abuse?: No - Immunizations Immunizations are current?: Yes - POLST Patient has POLST: No PD ED PE NORMAL - Vitals Vital signs reviewed: Yes - General General: Alert and oriented X 3, No acute distress, Well developed/nourished - HEENT HEENT: PERRL, EOMI - Cardiac Cardiac: RRR, No murmur - Respiratory Respiratory: No respiratory distress, Clear bilaterally - Abdomen Abdomen: Soft, Non tender - Neuro Neuro: Alert and oriented X 3 Eye Opening: Spontaneous Motor: Obeys Commands Verbal: Oriented GCS Score: 15 - Psych Psych: Normal mood PD ED PE EXPANDED - Psych Psych: Other (flat affect) Results - Vitals Vitals: Vital Signs - 24 hr 05/30/19 05/31/19 05/31/19 21:46 02:20 09:02 Temperature 37.2 C 37.2 C 36.6 C Heart Rate 98 85 80 Respiratory 16 16 15 Rate Blood Pressure 156/105 H 119/52 L 124/56 L O2 Saturation 96 96 100 05/31/19 12:43 Temperature 36.5 C Heart Rate 103 H Respiratory 15 Rate Blood Pressure 148/83 H O2 Saturation 98 Oxygen O2 Source Room air - Labs Labs: Laboratory Tests 05/30/19 05/30/19 05/30/19 21:53 21:53 22:17 WBC 13.8 H RBC 4.47 Hgb 11.8 L Hct 38.1 MCV 85.2 MCH 26.4 L MCHC 31.0 L RDW 15.0 Plt Count 387 MPV 9.1 Neut # (Auto) 8.0 H Lymph # (Auto) 4.3 H [place] # (Auto) 1.1 H Eos # (Auto) 0.3 Baso # (Auto) 0.0 Absolute Nucleated RBC 0.00 Nucleated RBC % 0.0 Sodium Potassium Chloride Carbon Dioxide Anion Gap BUN Creatinine Estimated GFR (MDRD) Glucose Calcium Total Bilirubin AST ALT Alkaline Phosphatase Total Protein Albumin Globulin Albumin/Globulin Ratio Lipase TSH Urine Color YELLOW Urine Clarity CLEAR Urine pH 7.0 Ur Specific [place] 1.015 Urine Protein NEGATIVE Urine Glucose (UA) NEGATIVE Urine Ketones NEGATIVE Urine Occult Blood NEGATIVE Urine Nitrite NEGATIVE Urine Bilirubin NEGATIVE Urine Urobilinogen 0.2 (NORMAL) Ur Leukocyte Esterase NEGATIVE Ur Microscopic Review NOT INDICATED Urine Culture Comments NOT INDICATED Urine HCG, Qual NEGATIVE Salicylates Urine Opiates Screen NEGATIVE Ur Oxycodone Screen NEGATIVE Urine Methadone Screen NEGATIVE Ur Propoxyphene Screen NEGATIVE Acetaminophen Ur Barbiturates Screen NEGATIVE Ur Tricyclics Screen NEGATIVE Ur Phencyclidine Scrn NEGATIVE Ur Amphetamine Screen NEGATIVE U Methamphetamines Scrn NEGATIVE U Benzodiazepines Scrn NEGATIVE Urine Cocaine Screen NEGATIVE U Cannabinoids Screen NEGATIVE Ethyl Alcohol 05/30/19 05/30/19 22:17 22:17 WBC RBC Hgb Hct MCV MCH MCHC RDW Plt Count MPV Neut # (Auto) Lymph # (Auto) [place] # (Auto) Eos # (Auto) Baso # (Auto) Absolute Nucleated RBC Nucleated RBC % Sodium 138 Potassium 3.6 Chloride 105 Carbon Dioxide 23 Anion Gap 10.0 BUN 12 Creatinine 0.8 Estimated GFR (MDRD) 91 Glucose 99 Calcium 9.1 Total Bilirubin 0.2 AST 16 ALT 16 Alkaline Phosphatase 75 Total Protein 7.3 Albumin 3.4 Globulin 3.9 Albumin/Globulin Ratio 0.9 L Lipase 29 TSH 5.85 H Urine Color Urine Clarity Urine pH Ur Specific [place] Urine Protein Urine Glucose (UA) Urine Ketones Urine Occult Blood Urine Nitrite Urine Bilirubin Urine Urobilinogen Ur Leukocyte Esterase Ur Microscopic Review Urine Culture Comments Urine HCG, Qual Salicylates < 6.0 Urine Opiates Screen Ur Oxycodone Screen Urine Methadone Screen Ur Propoxyphene Screen Acetaminophen < 10 L Ur Barbiturates Screen Ur Tricyclics Screen Ur Phencyclidine Scrn Ur Amphetamine Screen U Methamphetamines Scrn U Benzodiazepines Scrn Urine Cocaine Screen U Cannabinoids Screen Ethyl Alcohol < 5.0 PD MEDICAL DECISION MAKING - ED course Complexity details: reviewed old records, reviewed results, re-evaluated patient, considered differential, d/w patient ED course: Telepsych consult recommends inpatient and specifies that patient is involuntary. [facility] consulted and they were able to arrange for transfer to [facility] E+. Departure - Departure Disposition: 65 Psych Hosp/Unit DC/Xfer Clinical Impression: Suicidal ideation Depression Qualifiers: Depression Type: unspecified Qualified Code(s): F32.9 - Major depressive disorder, single episode, unspecified Condition: Good Discharge Date/Time: 05/31/19 13:04
[2019-05-30 22:27] LABS: BILIRUBIN,URINE NEGATIVE (NEGATIVE); GLUCOSE, URINE (UA) NEGATIVE (NEGATIVE); KETONES,URINE (UA) NEGATIVE (NEGATIVE); LEUKOCYTE ESTERASE, URINE NEGATIVE (NEGATIVE); NITRITE,URINE NEGATIVE (NEGATIVE); OCCULT BLOOD,URINE NEGATIVE (NEGATIVE); PROTEIN,URINE NEGATIVE (NEGATIVE); UROBILINOGEN,URINE 0.2 (NORMAL) E.U./dL (NORMAL)
[2019-05-30 22:29] LABS: BASOPHILS % (AUTO) 0.2 %; EOSINOPHILS # (AUTO) 0.3 10^3/uL (0.0-0.7); EOSINOPHILS % (AUTO) 2.2 %; HGB - HEMOGLOBIN 11.8 g/dL (12.0-16.0); LYMPHOCYTES # (AUTO) 4.3 10^3/uL (1.5-3.5); LYMPHOCYTES % (AUTO) 31.4 %; MEAN CORPUSCULAR HEMOGLOBIN 26.4 pg (27.0-31.0); MEAN CORPUSCULAR VOLUME 85.2 fL (81.0-99.0); MEAN PLATELET VOLUME 9.1 fL (7.9-10.8); MONOCYTES # (AUTO) 1.1 10^3/uL (0.0-1.0); MONOCYTES % (AUTO) 8.1 %; NEUTROPHILS % (AUTO) 57.7 %; PLT - PLATELET COUNT 387 10^3/uL (130-450); RED BLOOD COUNT 4.47 10^6/uL (4.20-5.40); WHITE BLOOD COUNT 13.8 x10^3/uL (4.8-10.8)
[2019-05-30 22:32] LABS: CLARITY,URINE CLEAR (CLEAR); HCG UR QUAL NEGATIVE
[2019-05-30 22:37] LABS: AMPHETAMINE SCREEN,URINE NEGATIVE (NEGATIVE); BENZODIAZEPINES SCREEN, URINE NEGATIVE (NEGATIVE); COCAINE SCREEN URINE NEGATIVE (NEGATIVE); METHADONE SCREEN, URINE NEGATIVE (NEGATIVE); METHAMPHETAMINES SCREEN, URINE NEGATIVE (NEGATIVE); OPIATE SCREEN, URINE NEGATIVE (NEGATIVE); OXYCODONE SCREEN, URINE NEGATIVE (NEGATIVE); PROPOXYPHENE SCREEN, URINE NEGATIVE (NEGATIVE); TRICYCLIC ANTIDEPRESSANT,URINE NEGATIVE (NEGATIVE)
[2019-05-30 22:44] LABS: ACETAMINOPHEN < 10 ug/mL (10-30); ALBUMIN 3.4 g/dL (3.2-5.5); ALBUMIN/GLOBULIN RATIO 0.9 (1.0-2.2); ALKALINE PHOSPHATASE 75 IU/L (42-121); ALT ALANINE AMINOTRANSFERASE 16 IU/L (10-60); AST ASPARTATE AMINOTRANSFERASE 16 IU/L (10-42); BILIRUBIN,TOTAL 0.2 mg/dL (0.2-1.0); BUN - BLOOD UREA NITROGEN 12 mg/dL (6-20); CALCIUM 9.1 mg/dL (8.5-10.3); CARBON DIOXIDE - CO2 23 mmol/L (21-32); CHLORIDE 105 mmol/L (101-111); CREATININE 0.8 mg/dL (0.4-1.0); GFR - MDRD 91 (>89); GLUCOSE 99 mg/dL (70-100); LIPASE 29 U/L (22-51); SALICYLATE < 6.0 mg/dL; SODIUM 138 mmol/L (135-145); TOTAL PROTEIN 7.3 g/dL (6.7-8.2)
--- NOTE | 2019-05-31 01:56 | TELEPSYCH PHYS NOTE ---
Telepsych Note - CHIEF COMPLAINT/HX OF PRESENT ILLNESS Cheif Complaint and History of Present Illness: Name: Daysi Anguiano : [birth year]. 23F Date: 05/31/19 Time: 4:27am Location of patient: [facility] ED Location of doctor: [facility] This evaluation was conducted via telepsychiatry with the assistance of onsite staff Chief Complaint: SI History of Present Illness: Pt seen by televideo with help from the onsite staff. Pt is a 23 yo female with hx of Bipolar Disorder. Pt resides at [facility]. Pt presented to the ED, BIB staff from [facility] due to safety concerns in the context of pt making Si statements. PT seen and evaluated, chart reviewed an appreciated. Pt reports she is chronically depressed. Notes she came to the hospital due to wanting to kill myself. Pt states she chronically experiences suicidal thoughts. States however in the past week the thoughts were more intense. Also with 3 specific plans to either jump off a bridge, walk in front of a car of overdose on her Rxs. She has a hx of 3 previous suicide attempts, all via overdose on pills. States the trigger was a text argument with her sister in which her sister called her selfish. States her mood and suicidal thoughts are different and more intense. Despite, pt states she does not want to be admitted because it never helps me just leave me be. Spine Supervisor asked how she will keep herself safe and pt reported that she did not know. On ROS, pt denies AVHs, delusions nor HI. Notes ongoing SI with 3 specific plans. Pt presents as highly guarded and irritable. She exhibits impaired insight and judgement. Pt presents as a danger to herself requiring acute inpt psychiatric admission for safety, stabilization and treatment. Collateral: Discussed case with staff and chart review. SI/ Self harm: + current SI, with 3 plans. Prior hx of 3 suicide attempts via overdose, last late 2017. HI/Violence: none reported Trauma history: none reported Access to weapons: none reported Legal: none reported Psychiatric History/Treatment History: no inpt admissions, reports compliant with outpt medications. Drug/Alcohol History: none reported Medical History: none acute reported Medications & Freq: reviewed, see chart Allergies: NKDA Sleep: decreased Family Psych History/History of suicide father and sister with depression/anxiety Social History: resides at [facility] Education: not reported Employed: unemployed Stressors: see HPI Strengths/supports: [employer] staff Appearance and attire: casual Attitude and behavior: guarded Affect and mood: depressed/irritable Association and thought processes: linear Thought content: Denies delusions Denies HI. + SI with 3 plans. Perception: Denies AVHs Sensorium, memory, and orientation: AxOx3 Intellectual functioning: unable to assess fully Insight and judgment: impaired - SI/HI/SELF HARM SI/HI/SELF HARM (CURRENT OR HISTORY OF):: SI - PSYCHIATRIC HX/TREATMENT HX Psychiatric: Depression, Anxiety, Bipolar disorder - MEDICAL HX Does the pt have a hx of MRSA?: No Neurological History: None Eyes, Ears, Nose, Throat: None Cardiovascular: Hypertension Respiratory: None Skin: None Endocrine/Autoimmune: None Gastrointestinal: GERD, Other Is Patient ?: No Urinary: None Musculoskeletal: None Blood Disorders: None PMH Other: borderline personality disorder - SURGICAL HX General: Cholecystectomy - HOME MEDICATIONS Home Meds (as last confirmed): Patient History Medication Instructions Recorded Confirmed [place] Carbonate 300 mg PO BID 07/30/17 01/05/19 lamoTRIgine [LaMICtal] 300 mg PO DAILY PM 07/30/17 03/10/19 risperiDONE [Risperdal] 3 mg PO DAILY PM 07/30/17 03/10/19 Amlodipine Besylate 10 mg PO DAILY 11/01/18 03/10/19 Ethinyl Estradiol/Drospirenone 1 each PO DAILY 11/01/18 03/10/19 [Huma 28 Tablet] Prazosin [Minipress] 3 tab PO QPM 11/01/18 03/10/19 Bupropion HCl [Bupropion Xl] 300 mg DAILY 01/05/19 03/10/19 Metoprolol Succinate 25 mg PO BID 01/05/19 01/05/19 raNITIdine [Zantac] 150 mg DAILY 01/05/19 03/10/19 traZODone [Desyrel] 100 mg QPM 01/05/19 03/10/19 - ALLERGIES Allergies (as last confirmed): Allergies Allergy/AdvReac Type Severity Reaction Status Date / Time No Known Drug Allergies Allergy Verified 05/30/19 21:53 - TREATMENT/PHARMACOLOGICAL RECOMMENDATION Treatment - Pharmacological - Therapy Recommendations: Diagnosis: Unspecified Bipolar And Related Disorder Impression/Risk Assessment: Pt presents as highly guarded and irritable. She exhibits impaired insight and judgement. Pt presents as a danger to herself requiring acute inpt psychiatric admission for safety, stabilization and treatment. Treatment Recommendations: Pt requires acute inpt psychiatric admission For safety, stabilization and treatment Pt is NOT voluntary for inpt treatment and will require involuntary placement. Please confirm and continue the pts home medication regimen while awaiting p kiran. - TIME SPENT & PROVIDER LOCATION Telepsych consultation conducted via videoconferencing: Yes List names and roles of persons who participated in consult: ness ivory Telepsych Provider Location: [place] Time Telepsych consult began: 04:40 Time Telepsych consult completed: 04:52
[2019-05-31 12:44] VITALS: BP 148/83
== END 2019-05-31 13:04 ==
LOC: ED 21:44
DX: R45.851 Suicidal ideations (principal); F32.9 Major depressive disorder, single episode, unspecified; I10 Essential (primary) hypertension; Z87.891 Personal history of nicotine dependence
CPT/HCPCS: 36415; 80053; 80178; 80306; 80307; 80320; 80329; 81001; 81003; 81025; 83690; 84443; 85025; 87086; 93005; 99284; 99285

== ENCOUNTER 2019-06-17 08:55 | Outpatient (CLI) | payer BC, MEDICAID ==
[2019-06-17 09:31] LABS: BASOPHILS % (AUTO) 0.3 %; EOSINOPHILS # (AUTO) 0.2 10^3/uL (0.0-0.7); EOSINOPHILS % (AUTO) 1.4 %; HGB - HEMOGLOBIN 11.9 g/dL (12.0-16.0); LYMPHOCYTES # (AUTO) 3.2 10^3/uL (1.5-3.5); LYMPHOCYTES % (AUTO) 26.9 %; MEAN CORPUSCULAR HGB CONC 31.6 g/dL (32.0-36.0); MEAN CORPUSCULAR VOLUME 85.5 fL (81.0-99.0); MEAN PLATELET VOLUME 9.1 fL (7.9-10.8); MONOCYTES # (AUTO) 0.8 10^3/uL (0.0-1.0); MONOCYTES % (AUTO) 6.7 %; NEUTROPHILS # (AUTO) 7.6 10^3/uL (1.5-6.6); NEUTROPHILS % (AUTO) 64.4 %; PLT - PLATELET COUNT 394 10^3/uL (130-450); RED CELL DISTRIBUTION WIDTH 14.2 % (12.0-15.0); WHITE BLOOD COUNT 11.9 x10^3/uL (4.8-10.8)
[2019-06-17 09:46] LABS: ALBUMIN 3.1 g/dL (3.2-5.5); ALBUMIN/GLOBULIN RATIO 0.8 (1.0-2.2); ALKALINE PHOSPHATASE 80 IU/L (42-121); ALT ALANINE AMINOTRANSFERASE 15 IU/L (10-60); AST ASPARTATE AMINOTRANSFERASE 15 IU/L (10-42); BILIRUBIN,TOTAL 0.4 mg/dL (0.2-1.0); BUN - BLOOD UREA NITROGEN 10 mg/dL (6-20); CALCIUM 8.5 mg/dL (8.5-10.3); CARBON DIOXIDE - CO2 22 mmol/L (21-32); CHLORIDE 107 mmol/L (101-111); CHOL/HDL RATIO 2.8 (<4.4); CHOLESTEROL 134 mg/dL; CREATININE 0.7 mg/dL (0.4-1.0); GFR - MDRD 106 (>89); GLUCOSE 101 mg/dL (70-100); GLUCOSE,FASTING 101 mg/dL (70-100); HDL CHOLESTEROL 48 mg/dL; LDL CHOLESTEROL,CALCULATED 66 mg/dL; LDL/HDL RATIO 1.4 (<4.4); SODIUM 139 mmol/L (135-145); TOTAL PROTEIN 6.9 g/dL (6.7-8.2); VLDL CHOLESTEROL 20 mg/dL
[2019-06-17 09:54] LABS: HB2 TOTAL 12.7 g/dL; HEMOGLOBIN A1C 0.48 g/dL; HEMOGLOBIN A1C % 5.6 % (4.6-6.2)
[2019-06-17 10:04] LABS: BILIRUBIN,DIRECT < 0.1 mg/dL (0.1-0.5)
[2019-06-17 10:28] LABS: LITHIUM 0.19 mmol/L
[2019-06-17 10:44] LABS: T4 (THYROXINE) 13.03 ug/dL (6.09-12.23)
[2019-06-17 10:46] LABS: THYROID STIMULATING HORMONE 2.89 uIU/mL (0.34-5.60)
[2019-06-17 10:53] LABS: TOTAL T3 1.6 ng/mL (0.87-1.78)
== END 2019-06-17 08:56 | disposition home or self-care (01) ==
LOC: LAB 08:55
PROVIDERS: ATTEND Psychiatry & Neurology Psychiatry
DX: Z79.899 Other long term (current) drug therapy (principal); F33.1 Major depressive disorder, recurrent, moderate
CPT/HCPCS: 36415; 80053; 80061; 80178; 81599; 82248; 82607; 82947; 83036; 83721; 84436; 84442; 84443; 84480; 85025

== ENCOUNTER 2019-08-23 10:31 | Emergency (ER) | payer BC, MEDICAID ==
--- NOTE | 2019-08-23 12:02 | ED Physician Documentation ---
PD HPI URI - Stated complaint Stated Complaint: SORE THROAT - Chief complaint Chief Complaint: Heent - History obtained from History obtained from: Patient - History of Present Illness Timing - onset: Yesterday Timing duration: Days (2) Timing details: Abrupt onset, Still present Associated symptoms: Fever, Chills, Sore throat, Dry cough Contributing factors: No: Sick contact, Immunocompromised Recently seen: Not recently seen Review of Systems Constitutional: reports: Fever, Chills, Myalgias Throat: reports: Sore throat Respiratory: reports: Cough GI: reports: Nausea. 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 : None HEENT: None Psych: Depression, Anxiety, Bipolar disorder Musculoskeletal: None Derm: None - Past Surgical History Past Surgical History: Yes General: Cholecystectomy - Present Medications Home Medications: Ambulatory Orders Medication Instructions Recorded Confirmed [place] Carbonate 300 mg PO BID 07/30/17 01/05/19 lamoTRIgine [LaMICtal] 300 mg PO DAILY PM 07/30/17 03/10/19 risperiDONE [Risperdal] 3 mg PO DAILY PM 07/30/17 03/10/19 Amlodipine Besylate 10 mg PO DAILY 11/01/18 03/10/19 Ethinyl Estradiol/Drospirenone 1 each PO DAILY 11/01/18 03/10/19 [Huma 28 Tablet] Prazosin [Minipress] 3 tab PO QPM 11/01/18 03/10/19 Bupropion HCl [Bupropion Xl] 300 mg DAILY 01/05/19 03/10/19 Metoprolol Succinate 25 mg PO BID 01/05/19 01/05/19 raNITIdine [Zantac] 150 mg DAILY 01/05/19 03/10/19 traZODone [Desyrel] 100 mg QPM 01/05/19 03/10/19 Ibuprofen [Motrin] 600 mg PO TID PRN #25 tab 08/23/19 dexAMETHasone [Decadron] 4 mg PO DAILY #5 tablet 08/23/19 - Allergies Allergies/Adverse Reactions: Allergies Allergy/AdvReac Type Severity Reaction Status Date / Time No Known Drug Allergies Allergy Verified 05/30/19 21:53 - Social History Does the pt smoke?: No Smoking Status: Former smoker Does the pt drink ETOH?: No Does the pt have substance abuse?: No - Immunizations Immunizations are current?: Yes - POLST Patient has POLST: No PD ED PE NORMAL - Vitals Vital signs reviewed: Yes - General General: Alert and oriented X 3, No acute distress, Well developed/nourished - HEENT HEENT: Ears normal, Moist mucous membranes, Pharynx benign - Neck Neck: Supple, no meningeal sign, No adenopathy - Cardiac Cardiac: RRR, No murmur - Respiratory Respiratory: Clear bilaterally - Neuro Neuro: Alert and oriented X 3, No motor deficit, Normal speech Results - Vitals Vitals: Oxygen O2 Source Room air - Labs Labs: Microbiology 08/23/19 10:42 Group A Strep Throat Culture - Final Throat MIXED OROPHARYNGEAL YOLETTE PRESENT. NO BETA STREP PRESENT IN CULTURE. Laboratory Tests 08/23/19 10:42 Group A Strep Rapid Negative PD MEDICAL DECISION MAKING - ED course Complexity details: reviewed results, considered differential, d/w patient Departure - Departure Disposition: 01 Home, Self Care Clinical Impression: Upper respiratory infection Qualifiers: URI type: unspecified URI Qualified Code(s): J06.9 - Acute upper respiratory infection, unspecified Condition: Stable Record reviewed to determine appropriate education?: Yes Instructions: ED Upper Resp Infec No Abx Tx Follow-Up: Beverley Deras ARNP [Primary Care Provider] - Prescriptions: dexAMETHasone [Decadron] 4 mg PO DAILY #5 tablet Ibuprofen [Motrin] 600 mg PO TID PRN #25 tab PRN Reason: Pain Comments: Stay well-hydrated. Use your usual medications. Add Decadron steroid for inflammation of the throat and airway. This will decrease the symptoms. Use ibuprofen 2-3 times a day for fever and pains. Add Tylenol if needed. I would anticipate being ill for 5 or 6 days with a viral type illness. Discharge Date/Time: 08/23/19 12:38
[2019-08-23 12:16] VITALS: BP 116/68
[2019-08-23] MEDS ORDERED: BENZONATATE 100 MG CAPSULE PO STA (12:25)
[2019-08-23] MEDS ORDERED: DEXAMETHASONE 10 MG/ML VIAL PO STA (12:25)
[2019-08-23] MEDS ORDERED: ACETAMINOPHEN 325 MG TABLET PO STA (12:25)
[2019-08-23] MEDS ORDERED: CHERRY SYRUP 10 ML UDC PO ONE (12:25)
[2019-08-23] MEDS ORDERED: IBUPROFEN 600 MG TABLET PO STA (12:25)
== END 2019-08-23 12:38 | disposition home or self-care (01) ==
LOC: ED 10:31
DX: J06.9 Acute upper respiratory infection, unspecified (principal); I10 Essential (primary) hypertension; Z87.891 Personal history of nicotine dependence
CPT/HCPCS: 87070; 87430; 99283; A9270

== ENCOUNTER 2019-08-26 19:06 | Emergency (ER) | payer BC, MEDICAID ==
[2019-08-26] MEDS ORDERED: LORazepam 1 MG TABLET PO STA (20:14)
--- NOTE | 2019-08-26 20:23 | ED Physician Documentation ---
History of Present Illness - Stated complaint Stated Complaint: EYE CHANGES/BAINS - Chief complaint Chief Complaint: General - History obtained from History obtained from: Patient - History of Present Illness Timing: Other (24-year-old woman with some psychiatric illnesses presents with feeling like her eyes are going to roll into the back of her head since yesterday. It is intermittent. Left worse than right. Vision is unaffected. She says she has had this before but milder. The only read was recent medication changes she was taken off of lithium a few weeks ago. No new medications. 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 : None HEENT: None Psych: Depression, Anxiety, Bipolar disorder Musculoskeletal: None Derm: None - Past Surgical History Past Surgical History: Yes General: Cholecystectomy - Present Medications Home Medications: Ambulatory Orders Medication Instructions Recorded Confirmed [place] Carbonate 300 mg PO BID 07/30/17 01/05/19 lamoTRIgine [LaMICtal] 300 mg PO DAILY PM 07/30/17 03/10/19 risperiDONE [Risperdal] 3 mg PO DAILY PM 07/30/17 03/10/19 Amlodipine Besylate 10 mg PO DAILY 11/01/18 03/10/19 Ethinyl Estradiol/Drospirenone 1 each PO DAILY 11/01/18 03/10/19 [Huma 28 Tablet] Prazosin [Minipress] 3 tab PO QPM 11/01/18 03/10/19 Bupropion HCl [Bupropion Xl] 300 mg DAILY 01/05/19 03/10/19 Metoprolol Succinate 25 mg PO BID 01/05/19 01/05/19 raNITIdine [Zantac] 150 mg DAILY 01/05/19 03/10/19 traZODone [Desyrel] 100 mg QPM 01/05/19 03/10/19 Ibuprofen [Motrin] 600 mg PO TID PRN #25 tab 08/23/19 dexAMETHasone [Decadron] 4 mg PO DAILY #5 tablet 08/23/19 - Allergies Allergies/Adverse Reactions: Allergies Allergy/AdvReac Type Severity Reaction Status Date / Time No Known Drug Allergies Allergy Verified 05/30/19 21:53 - Social History Does the pt smoke?: No Smoking Status: Never smoker Does the pt drink ETOH?: No Does the pt have substance abuse?: No - Immunizations Immunizations are current?: Yes - POLST Patient has POLST: No PD ED PE NORMAL - Vitals Vital signs reviewed: Yes - General General: Alert and oriented X 3, No acute distress - HEENT HEENT: PERRL, EOMI, Pharynx benign - Neck Neck: Supple, no meningeal sign, No bony TTP - Neuro Neuro: Alert and oriented X 3, 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 Consider dystonic reaction, but she is not on any new medications that would cause that. So I think that is less likely. Departure - Departure Disposition: 01 Home, Self Care Clinical Impression: Anxiety Condition: Good Record reviewed to determine appropriate education?: Yes Instructions: ED Stress React Comments: If it gets worse, please return for reevaluation., If it is mild and persistent talk with your psychiatrist to see if it is related to your psychiatric medications.
[2019-08-26 20:30] VITALS: BP 143/91
== END 2019-08-26 20:29 | disposition home or self-care (01) ==
LOC: ED 19:06
DX: F41.9 Anxiety disorder, unspecified (principal); I10 Essential (primary) hypertension
CPT/HCPCS: 99282; 99283; J8499

== ENCOUNTER 2020-03-18 00:33 | Emergency (ER) | payer BC, MEDICAID ==
[2020-03-18 01:07] LABS: BILIRUBIN,URINE NEGATIVE (NEGATIVE); CLARITY,URINE CLEAR (CLEAR); GLUCOSE, URINE (UA) NEGATIVE (NEGATIVE); KETONES,URINE (UA) NEGATIVE (NEGATIVE); LEUKOCYTE ESTERASE, URINE SMALL (NEGATIVE); NITRITE,URINE NEGATIVE (NEGATIVE); OCCULT BLOOD,URINE TRACE-LYSE (NEGATIVE); PROTEIN,URINE NEGATIVE (NEGATIVE); UROBILINOGEN,URINE 0.2 (NORMAL) E.U./dL (NORMAL)
[2020-03-18 01:09] LABS: HCG UR QUAL NEGATIVE
[2020-03-18 01:25] LABS: BACTERIA,URINE Rare /HPF (None Seen); CRYSTALS,URINE 26-50 Ca Oxalate /LPF; RBC,URINE 0-5 /HPF (0-5); SQUAMOUS EPITHELIAL CELL,UR MOD Squamous (<= Few)
--- NOTE | 2020-03-18 01:41 | ED Physician Documentation ---
PD HPI ABD PAIN - Stated complaint Stated Complaint: AB PX - Chief complaint Chief Complaint: Abd Pain - History obtained from History obtained from: Patient - History of Present Illness Timing - onset: How many weeks ago (1) Timing - details: Gradual onset, Waxing and waning Pain level now: 5 Quality: Pain Location: Other (across lower abdomen) Improved by: Other (no ameliorating factors) Worsened by: Other (no exacerbating factors) Associated symptoms: Nausea, Vomiting. 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 HEENT: None Psych: Depression, Anxiety, Bipolar disorder Musculoskeletal: None Derm: None - Past Surgical History Past Surgical History: Yes General: Cholecystectomy - Present Medications Home Medications: Ambulatory Orders Medication Instructions Recorded Confirmed [place] Carbonate 300 mg PO BID 07/30/17 01/05/19 lamoTRIgine [LaMICtal] 300 mg PO DAILY PM 07/30/17 03/10/19 risperiDONE [Risperdal] 3 mg PO DAILY PM 07/30/17 03/10/19 Amlodipine Besylate 10 mg PO DAILY 11/01/18 03/10/19 Ethinyl Estradiol/Drospirenone 1 each PO DAILY 11/01/18 03/10/19 [Huma 28 Tablet] Prazosin [Minipress] 3 tab PO QPM 11/01/18 03/10/19 Bupropion HCl [Bupropion Xl] 300 mg DAILY 01/05/19 03/10/19 Metoprolol Succinate 25 mg PO BID 01/05/19 01/05/19 raNITIdine [Zantac] 150 mg DAILY 01/05/19 03/10/19 traZODone [Desyrel] 100 mg QPM 01/05/19 03/10/19 Ibuprofen [Motrin] 600 mg PO TID PRN #25 tab 08/23/19 dexAMETHasone [Decadron] 4 mg PO DAILY #5 tablet 08/23/19 - Allergies Allergies/Adverse Reactions: Allergies Allergy/AdvReac Type Severity Reaction Status Date / Time No Known Drug Allergies Allergy Verified 03/18/20 00:35 - Social History Does the pt smoke?: No Smoking Status: Never smoker Does the pt drink ETOH?: No Does the pt have substance abuse?: No - Immunizations Immunizations are current?: Yes - POLST Patient has POLST: No PD ED PE NORMAL - Vitals Vital signs reviewed: Yes - General General: Alert and oriented X 3, No acute distress, Well developed/nourished - Cardiac Cardiac: RRR, No murmur - Respiratory Respiratory: No respiratory distress, Clear bilaterally - Abdomen Abdomen: Normal bowel sounds, Soft, Non distended - Back Back: No CVA TTP - Derm Derm: Normal color, Warm and dry, No rash PD ED PE EXPANDED - Abdomen Abdomen: Distended, RLQ, Suprapubic, LLQ Results - Vitals Vitals: Vital Signs - 24 hr 03/18/20 03/18/20 03/18/20 00:51 02:22 04:03 Heart Rate 65 66 63 Respiratory 18 18 16 Rate Blood Pressure 119/70 121/94 H 107/69 O2 Saturation 97 99 98 03/18/20 04:35 Heart Rate 70 Respiratory 16 Rate Blood Pressure 105/87 H O2 Saturation 99 Oxygen O2 Source Room air - Labs Labs: Laboratory Tests 03/18/20 03/18/20 03/18/20 00:40 00:40 02:06 WBC 9.9 RBC 4.71 Hgb 12.9 Hct 40.0 MCV 84.9 MCH 27.4 MCHC 32.3 RDW 14.8 Plt Count 355 MPV 9.5 Neut # (Auto) 4.0 Lymph # (Auto) 4.8 H [place] # (Auto) 0.9 Eos # (Auto) 0.3 Baso # (Auto) 0.1 Absolute Nucleated RBC 0.00 Nucleated RBC % 0.0 Sodium Potassium Chloride Carbon Dioxide Anion Gap BUN Creatinine Estimated GFR (MDRD) Glucose Calcium Total Bilirubin AST ALT Alkaline Phosphatase Total Protein Albumin Globulin Albumin/Globulin Ratio Lipase Urine Color YELLOW Urine Clarity CLEAR Urine pH 6.0 Ur Specific [place] >=1.030 H >1.030 Urine Protein NEGATIVE Urine Glucose (UA) NEGATIVE Urine Ketones NEGATIVE Urine Occult Blood TRACE-LYSE Urine Nitrite NEGATIVE Urine Bilirubin NEGATIVE Urine Urobilinogen 0.2 (NORMAL) Ur Leukocyte Esterase SMALL H Urine RBC 0-5 Urine WBC 4-5 Ur Squamous Epith Cells MOD Squamous H Urine Crystals 26-50 Ca Oxalate Urine Bacteria Rare Urine Culture Comments NOT INDICATED Urine HCG, Qual NEGATIVE 03/18/20 02:06 WBC RBC Hgb Hct MCV MCH MCHC RDW Plt Count MPV Neut # (Auto) Lymph # (Auto) [place] # (Auto) Eos # (Auto) Baso # (Auto) Absolute Nucleated RBC Nucleated RBC % Sodium 136 Potassium 3.8 Chloride 105 Carbon Dioxide 24 Anion Gap 7.0 BUN 10 Creatinine 0.6 Estimated GFR (MDRD) 125 Glucose 87 Calcium 9.1 Total Bilirubin 0.3 AST 17 ALT 18 Alkaline Phosphatase 99 Total Protein 7.5 Albumin 3.7 Globulin 3.8 Albumin/Globulin Ratio 1.0 Lipase 28 Urine Color Urine Clarity Urine pH Ur Specific [place] Urine Protein Urine Glucose (UA) Urine Ketones Urine Occult Blood Urine Nitrite Urine Bilirubin Urine Urobilinogen Ur Leukocyte Esterase Urine RBC Urine WBC Ur Squamous Epith Cells Urine Crystals Urine Bacteria Urine Culture Comments Urine HCG, Qual - Rads (name of study) CT A/P Radiology: Prelim report reviewed, See rad report PD MEDICAL DECISION MAKING - ED course Complexity details: reviewed results, re-evaluated patient, considered differential, d/w patient Departure - Departure Disposition: 01 Home, Self Care Clinical Impression: Abdominal pain Qualifiers: Abdominal location: lower abdomen, unspecified Qualified Code(s): R10.30 - Lower abdominal pain, unspecified Condition: Good Instructions: ED Abdominal Pain Unkn Cause Discharge Date/Time: 03/18/20 04:39
[2020-03-18] MEDS ORDERED: KETOROLAC 30 MG/ML VIAL IVP STA (01:53)
[2020-03-18] MEDS ORDERED: SODIUM CHLORIDE 0.9% 1,000 ML IV STA (01:53)
[2020-03-18] MEDS ORDERED: ONDANSETRON 4 MG/2 ML VIAL IVP STA (01:53)
[2020-03-18 02:13] LABS: BASOPHILS # (AUTO) 0.1 10^3/uL (0.0-0.1); BASOPHILS % (AUTO) 0.5 %; EOSINOPHILS # (AUTO) 0.3 10^3/uL (0.0-0.7); EOSINOPHILS % (AUTO) 2.5 %; HGB - HEMOGLOBIN 12.9 g/dL (12.0-16.0); LYMPHOCYTES # (AUTO) 4.8 10^3/uL (1.5-3.5); LYMPHOCYTES % (AUTO) 47.8 %; MEAN CORPUSCULAR HEMOGLOBIN 27.4 pg (27.0-31.0); MEAN CORPUSCULAR HGB CONC 32.3 g/dL (32.0-36.0); MEAN CORPUSCULAR VOLUME 84.9 fL (81.0-99.0); MEAN PLATELET VOLUME 9.5 fL (7.9-10.8); MONOCYTES # (AUTO) 0.9 10^3/uL (0.0-1.0); MONOCYTES % (AUTO) 8.7 %; NEUTROPHILS % (AUTO) 40.2 %; PLT - PLATELET COUNT 355 10^3/uL (130-450); RED BLOOD COUNT 4.71 10^6/uL (4.20-5.40); RED CELL DISTRIBUTION WIDTH 14.8 % (12.0-15.0); WHITE BLOOD COUNT 9.9 x10^3/uL (4.8-10.8)
[2020-03-18] MEDS ORDERED: IOVERSOL 320 100 ML VIAL IVP ONE ×2 (02:25→03:09)
[2020-03-18 02:26] LABS: ALBUMIN 3.7 g/dL (3.2-5.5); BILIRUBIN,TOTAL 0.3 mg/dL (0.2-1.0); CALCIUM 9.1 mg/dL (8.5-10.3); CREATININE 0.6 mg/dL (0.4-1.0); TOTAL PROTEIN 7.5 g/dL (6.7-8.2)
[2020-03-18 04:36] VITALS: BP 105/87
--- NOTE | 2020-03-18 08:50 | CT Report ---
PROCEDURE: Abdomen/Pelvis W INDICATIONS: abdominal pain CONTRAST: IV CONTRAST: Optiray 320 ml: 100 PO CONTRAST: *NO PO CONTRAST TECHNIQUE: After the administration of oral and intravenous contrast, 5 mm thick sections acquired from the diap hragms to the symphysis. 5 mm thick coronal and sagittal reformats were acquired. For radiation dos e reduction, the following was used: automated exposure control, adjustment of mA and/or kV accordin g to patient size. COMPARISON: None. FINDINGS: Image quality: Excellent. ABDOMEN: Lung bases: Lung bases are clear. Heart size is normal. Solid organs: Hepatomegaly. Gallbladder is surgically absent Biliary system is non dilated. Pancrea s enhances normally. No adrenal nodules. Kidneys demonstrate normal size and enhancement, without h ydronephrosis. Peritoneum and bowel: Bowel loops demonstrate normal wall thickness and caliber. No free fluid or a ir. No abscess cavity. A normal appendix is identified. Nodes and vessels: No retroperitoneal or mesenteric adenopathy by size criteria. Aorta and inferior vena cava are normal in size. Miscellaneous: No ventral hernias. PELVIS: Genitourinary: Bladder wall thickness is normal. Miscellaneous: No inguinal hernias or adenopathy. Bones: No suspicious bony lesions. No vertebral body compression fractures. IMPRESSION: 1. Hepatomegaly. 2. Remote cholecystectomy. 3. No evidence of acute abdominal process. A preliminary report with the above findings was provided at the time of the study by [facility]. Reviewed by: Stephen Howard MD on 03/18/2020 7:48 AM ANDRADE Approved by: Stephen Howard MD on 03/18/2020 7:48 AM ANDRADE Station ID: [id number]
== END 2020-03-18 04:39 | disposition home or self-care (01) ==
LOC: ED 00:33
DX: R10.31 Right lower quadrant pain (principal); R10.32 Left lower quadrant pain; R11.2 Nausea with vomiting, unspecified; R16.0 Hepatomegaly, not elsewhere classified; Z90.49 Acquired absence of other specified parts of digestive tract; I10 Essential (primary) hypertension
CPT/HCPCS: 36415; 74177; 80053; 81001; 81025; 83690; 85025; 96361; 96374; 99284; Q9967; 87086

== ENCOUNTER 2020-05-13 03:28 | Emergency (ER) | payer MEDICAID ==
--- NOTE | 2020-05-13 03:40 | ED Physician Documentation ---
History of Present Illness - Stated complaint Stated Complaint: AB PX - History obtained from History obtained from: Patient - Additonal information Additional information: 24-year-old female presents with pelvic pain without vaginal bleeding or discharge that is bilateral with a history of PCOS. Reports nausea and vomiting as well. Denies right lower quadrant pain she has had a previous cholecystectomy she had a CT scan of the abdomen pelvis about a month ago that was unremarkable. She denies any fevers dysuria hematuria or flank pain.Patient is sexually active she reports that sometimes her symptoms are worse with sexual activity. Review of Systems Constitutional: reports: Reviewed and negative Eyes: reports: Reviewed and negative Ears: reports: Reviewed and negative Nose: reports: Reviewed and negative Throat: reports: Reviewed and negative Cardiac: reports: Reviewed and negative Respiratory: reports: Reviewed and negative GI: reports: Reviewed and negative : reports: Other (pelvic pain, pcos) Skin: reports: Reviewed and negative Musculoskeletal: reports: Reviewed and negative Neurologic: reports: Reviewed and negative Psychiatric: reports: Reviewed and negative Endocrine: reports: Reviewed and negative Immunocompromised: reports: Reviewed and negative PD PAST MEDICAL HISTORY - Past Medical History Cardiovascular: Hypertension Respiratory: None Neuro: None Endocrine/Autoimmune: None GI: GERD, 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 HEENT: None Psych: Depression, Anxiety, Bipolar disorder Musculoskeletal: None Derm: None - Past Surgical History Past Surgical History: Yes General: Cholecystectomy - Present Medications Home Medications: Ambulatory Orders Medication Instructions Recorded Confirmed [place] Carbonate 300 mg PO BID 07/30/17 01/05/19 lamoTRIgine [LaMICtal] 300 mg PO DAILY PM 07/30/17 03/10/19 risperiDONE [Risperdal] 3 mg PO DAILY PM 07/30/17 03/10/19 Amlodipine Besylate 10 mg PO DAILY 11/01/18 03/10/19 Ethinyl Estradiol/Drospirenone 1 each PO DAILY 11/01/18 03/10/19 [Huma 28 Tablet] Prazosin [Minipress] 3 tab PO QPM 11/01/18 03/10/19 Bupropion HCl [Bupropion Xl] 300 mg DAILY 01/05/19 03/10/19 Metoprolol Succinate 25 mg PO BID 01/05/19 01/05/19 raNITIdine [Zantac] 150 mg DAILY 01/05/19 03/10/19 traZODone [Desyrel] 100 mg QPM 01/05/19 03/10/19 Ibuprofen [Motrin] 600 mg PO TID PRN #25 tab 08/23/19 dexAMETHasone [Decadron] 4 mg PO DAILY #5 tablet 08/23/19 - Allergies Allergies/Adverse Reactions: Allergies Allergy/AdvReac Type Severity Reaction Status Date / Time No Known Drug Allergies Allergy Verified 05/13/20 03:47 - Social History Does the pt smoke?: No Smoking Status: Never smoker Does the pt drink ETOH?: No Does the pt have substance abuse?: No - Immunizations Immunizations are current?: Yes - POLST Patient has POLST: No PD ED PE NORMAL - Vitals Vital signs reviewed: Yes - General General: Alert and oriented X 3, No acute distress, Well developed/nourished - HEENT HEENT: Atraumatic, PERRL, Moist mucous membranes - Neck Neck: Supple, no meningeal sign - Cardiac Cardiac: RRR, No murmur, Strong equal pulses - Respiratory Respiratory: No respiratory distress, Clear bilaterally - Abdomen Abdomen: Normal bowel sounds, Soft, Non distended, No organomegaly, Other (Diffuse tenderness the right lower quadrant left lower quadrant and suprapubic region. 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, No motor deficit, No sensory deficit, Normal speech - Psych Psych: Normal mood, Normal affect Results - Vitals Vitals: Vital Signs - 24 hr 05/13/20 05/13/20 03:35 05:45 Temperature 36.7 C Heart Rate 100 92 Respiratory 20 18 Rate Blood Pressure 167/111 H 154/106 H O2 Saturation 97 99 Oxygen O2 Source Room air - Labs Labs: Laboratory Tests 05/13/20 05/13/20 05/13/20 03:45 04:35 04:35 WBC 14.0 H RBC 4.55 Hgb 12.7 Hct 38.8 MCV 85.3 MCH 27.9 MCHC 32.7 RDW 14.7 Plt Count 377 MPV 9.1 Neut # (Auto) 8.3 H Lymph # (Auto) 4.3 H [place] # (Auto) 1.1 H Eos # (Auto) 0.3 Baso # (Auto) 0.1 Absolute Nucleated RBC 0.00 Nucleated RBC % 0.0 PT 11.8 INR 1.0 APTT 28.6 Sodium Potassium Chloride Carbon Dioxide Anion Gap BUN Creatinine Estimated GFR (MDRD) Glucose Lactic Acid Calcium Total Bilirubin AST ALT Alkaline Phosphatase Total Creatine Kinase Total Protein Albumin Globulin Albumin/Globulin Ratio Lipase Urine Color YELLOW Urine Clarity CLEAR Urine pH 6.0 Ur Specific [place] >=1.030 H Urine Protein NEGATIVE Urine Glucose (UA) NEGATIVE Urine Ketones NEGATIVE Urine Occult Blood NEGATIVE Urine Nitrite NEGATIVE Urine Bilirubin NEGATIVE Urine Urobilinogen 0.2 (NORMAL) Ur Leukocyte Esterase NEGATIVE Ur Microscopic Review NOT INDICATED Urine Culture Comments NOT INDICATED Urine HCG, Qual NEGATIVE 05/13/20 05/13/20 04:35 04:35 WBC RBC Hgb Hct MCV MCH MCHC RDW Plt Count MPV Neut # (Auto) Lymph # (Auto) [place] # (Auto) Eos # (Auto) Baso # (Auto) Absolute Nucleated RBC Nucleated RBC % PT INR APTT Sodium 139 Potassium 3.7 Chloride 104 Carbon Dioxide 25 Anion Gap 10.0 BUN 13 Creatinine 0.7 Estimated GFR (MDRD) 105 Glucose 106 H Lactic Acid 1.3 Calcium 9.4 Total Bilirubin 0.5 AST 21 ALT 22 Alkaline Phosphatase 96 Total Creatine Kinase 365 H Total Protein 7.6 Albumin 3.8 Globulin 3.8 Albumin/Globulin Ratio 1.0 Lipase 28 Urine Color Urine Clarity Urine pH Ur Specific [place] Urine Protein Urine Glucose (UA) Urine Ketones Urine Occult Blood Urine Nitrite Urine Bilirubin Urine Urobilinogen Ur Leukocyte Esterase Ur Microscopic Review Urine Culture Comments Urine HCG, Qual PD MEDICAL DECISION MAKING - ED course Complexity details: considered differential (ruptured ovarian cyst) ED course: Patient's been reevaluated multiple times she is pain-free her abdomen soft and nonsurgical formal ultrasound shows polycystic ovaries compatible with history of polycystic ovarian syndrome negative for ovarian torsion and small simple appearing free fluid in the right upper medial adnexa patient has good follow-up she will follow-up with her primary care provider on Thursday. Departure - Departure Disposition: Home, Self Care Clinical Impression: PCOS (polycystic ovarian syndrome) Cyst of ovary Qualifiers: Laterality: unspecified laterality Qualified Code(s): N83.209 - Unspecified ovarian cyst, unspecified side Condition: Stable Instructions: ED Cyst Ovarian Follow-Up: your, doctor [Other] - Tomorrow Comments: Please follow-up with your primary care provider or [facility] this week. You may take [id number] medication such as Tylenol or ibuprofen for your symptoms.
[2020-05-13 04:06] LABS: BILIRUBIN,URINE NEGATIVE (NEGATIVE); GLUCOSE, URINE (UA) NEGATIVE (NEGATIVE); KETONES,URINE (UA) NEGATIVE (NEGATIVE); LEUKOCYTE ESTERASE, URINE NEGATIVE (NEGATIVE); NITRITE,URINE NEGATIVE (NEGATIVE); OCCULT BLOOD,URINE NEGATIVE (NEGATIVE); PROTEIN,URINE NEGATIVE (NEGATIVE); UROBILINOGEN,URINE 0.2 (NORMAL) E.U./dL (NORMAL)
[2020-05-13 04:08] LABS: CLARITY,URINE CLEAR (CLEAR); HCG UR QUAL NEGATIVE
[2020-05-13] MEDS ORDERED: ONDANSETRON 4 MG/2 ML VIAL IVP STA (04:24)
[2020-05-13] MEDS ORDERED: SODIUM CHLORIDE 0.9% 1,000 ML IV STA (04:24)
[2020-05-13] MEDS ORDERED: KETOROLAC 30 MG/ML VIAL IVP STA (04:24)
[2020-05-13 04:47] LABS: BASOPHILS # (AUTO) 0.1 10^3/uL (0.0-0.1); BASOPHILS % (AUTO) 0.4 %; EOSINOPHILS # (AUTO) 0.3 10^3/uL (0.0-0.7); EOSINOPHILS % (AUTO) 1.9 %; HGB - HEMOGLOBIN 12.7 g/dL (12.0-16.0); LYMPHOCYTES # (AUTO) 4.3 10^3/uL (1.5-3.5); LYMPHOCYTES % (AUTO) 30.3 %; MEAN CORPUSCULAR HEMOGLOBIN 27.9 pg (27.0-31.0); MEAN CORPUSCULAR HGB CONC 32.7 g/dL (32.0-36.0); MEAN CORPUSCULAR VOLUME 85.3 fL (81.0-99.0); MEAN PLATELET VOLUME 9.1 fL (7.9-10.8); MONOCYTES # (AUTO) 1.1 10^3/uL (0.0-1.0); MONOCYTES % (AUTO) 8.1 %; NEUTROPHILS # (AUTO) 8.3 10^3/uL (1.5-6.6); NEUTROPHILS % (AUTO) 58.9 %; PLT - PLATELET COUNT 377 10^3/uL (130-450); RED BLOOD COUNT 4.55 10^6/uL (4.20-5.40); RED CELL DISTRIBUTION WIDTH 14.7 % (12.0-15.0)
[2020-05-13 05:00] LABS: ALBUMIN 3.8 g/dL (3.2-5.5); BILIRUBIN,TOTAL 0.5 mg/dL (0.2-1.0); CALCIUM 9.4 mg/dL (8.5-10.3); CREATININE 0.7 mg/dL (0.4-1.0); TOTAL PROTEIN 7.6 g/dL (6.7-8.2)
[2020-05-13 05:02] LABS: PT - PROTHROMBIN TIME 11.8 secs (9.9-12.6)
[2020-05-13 05:09] LABS: PARTIAL THROMBOPLASTIN TIME 28.6 secs (24.9-33.3)
[2020-05-13 06:32] VITALS: BP 153/88
--- NOTE | 2020-05-13 09:38 | Ultrasound Report ---
PROCEDURE: Pelvic Complete INDICATIONS: pelvic pain hx of pcos TECHNIQUE: Real-time transabdominal scanning was performed of the pelvic organs, with image documentation. COMPARISON: Correlation is made with abdomen and pelvis CT 03/18/2020. FINDINGS: Uterus: Uterus is normal in size at 6.8 x 3.3 x 4.6 cm. Endometrium measures 7 mm in combined thick ness. Nabothian cysts are incidentally noted. Ovaries: The right ovary measures 3 x 1.8 x 2.2 cm. The left ovary measures 3.2 x 1.6 x 2.1 cm. More than 12 follicles can be seen involving each ovary. A flow can be seen within each ovary. On these images, arterial waveforms were not obtained. Other: No free pelvic fluid. Limited scanning through the kidneys shows no hydronephrosis. IMPRESSION: Multiple follicles can be seen involving each ovary, which is consistent with the given clinical hist ory of polycystic ovarian syndrome. No acute abnormality is detected. Note: No significant discrepancy from the preliminary report. Reviewed by: Adriano Sauceda MD on 05/13/2020 8:37 AM ANDRADE Approved by: Adriano Sauceda MD on 05/13/2020 8:37 AM ANDRADE Station ID: [id number]
--- NOTE | 2020-05-13 09:59 | Ultrasound Report ---
PROCEDURE: Transvaginal INDICATIONS: pelvic pain history of PCOS COMPARISON: Correlation is made with abdomen and pelvis CT 03/18/2020. FINDINGS: Uterus: Uterus is normal in size at 6.8 x 3.3 x 4.6 cm. Endometrium measures 7 mm in combined thickness. Nabothian cyst s are incidentally noted. Ovaries: The right ovary measures 3 x 1.8 x 2.2 cm. The left ovary measure s 3.2 x 1.6 x 2.1 cm. More than 12 follicles can be seen involving each ovary. A flow can be seen wi thin each ovary. On these images, arterial waveforms were not obtained. Other: No free pelvic fluid. Limited scanning through the kidneys shows no hydronephrosis. IMPRESSION: Multiple follicles ca n be seen involving each ovary, which is consistent with the given clinical history of polycystic ova yazmin syndrome. No acute abnormality is detected. Note: No significant discrepancy from the preli minary report. Reviewed by: Adriano Sauceda MD on 05/13/2020 8:57 AM ANDRADE Approved by: Adriano Sauceda MD on 05/13/2020 8:57 AM ANDRADE Station ID: [id number]
== END 2020-05-13 06:32 | disposition home or self-care (01) ==
LOC: ED 03:28
DX: E28.2 Polycystic ovarian syndrome (principal); N83.02 Follicular cyst of left ovary; N83.01 Follicular cyst of right ovary
CPT/HCPCS: 36415; 76830; 76856; 80053; 81001; 81003; 81025; 82550; 83605; 83690; 85025; 85610; 85730; 87086; 96361; 96374; 99283

== ENCOUNTER 2020-06-01 04:08 | Emergency (ER) | payer OTHER, MEDICARE, MEDICAID ==
[2020-06-01 04:24] VITALS: BP 147/94
[2020-06-01] MEDS ORDERED: MUPIROCIN 2% OINT 1 GM TOP STA (04:47)
--- NOTE | 2020-06-01 04:51 | ED Physician Documentation ---
PD HPI SKIN - Stated complaint Stated Complaint: L WRIST PX - Chief complaint Chief Complaint: Wound - History obtained from History obtained from: Patient, Family - History of Present Illness Timing - onset: How many days ago (2) Timing - duration: Days (2) Timing - details: Gradual onset, Still present Location: LUE Quality / character: Crusted, Swelling Associated symptoms: Headache, Abd pain. No: Fever, Myalgias, Joint pain, Facial swelling, Dyspnea, N/V/D, Urinary sx Contributing factors: Other (cutting on wrist) Similar symptoms before: Has not had sx before Recently seen: Not recently seen - Additional information Additional information: 22-year-old female has a history of bipolar disorder has scratched on her left wrist 1 week ago and now she has some redness to the area a bit of swelling and minor pain. She is come into the emergency department in the early hours of the morning with the chief complaint of infection of superficial abrasions. The patient has poor sleep hygiene and caffeine abuse as well as epigastric pain and headaches. I have asked the patient if she wants us to keep her until morning for social work evaluation to help establish a counselor. The patient does not think this will be necessary and she states that she is attempting to get counseling at [facility] and she has been in counseling with [facility] previously.She has called them and they have not called her back.She denies suicidal ideology. Review of Systems Constitutional: denies: Fever Eyes: denies: Decreased vision Ears: denies: Ear pain Nose: denies: Rhinorrhea / runny nose, Congestion Throat: denies: Sore throat Cardiac: denies: Chest pain / pressure, Palpitations, Pedal edema, Calf pain Respiratory: denies: Dyspnea, Cough GI: reports: Abdominal Pain, Nausea. denies: Vomiting, Constipation, Diarrhea : denies: Dysuria, Frequency Skin: denies: Rash Musculoskeletal: denies: Neck pain, Extremity pain Neurologic: reports: Headache. 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 : None HEENT: None Psych: Depression, Anxiety, Bipolar disorder Musculoskeletal: None Derm: None - Past Surgical History Past Surgical History: Yes General: Cholecystectomy - Present Medications Home Medications: Ambulatory Orders Medication Instructions Recorded Confirmed [place] Carbonate 300 mg PO BID 07/30/17 01/05/19 lamoTRIgine [LaMICtal] 300 mg PO DAILY PM 07/30/17 03/10/19 risperiDONE [Risperdal] 3 mg PO DAILY PM 07/30/17 03/10/19 Amlodipine Besylate 10 mg PO DAILY 11/01/18 03/10/19 Ethinyl Estradiol/Drospirenone 1 each PO DAILY 11/01/18 03/10/19 [Huma 28 Tablet] Prazosin [Minipress] 3 tab PO QPM 11/01/18 03/10/19 Bupropion HCl [Bupropion Xl] 300 mg DAILY 01/05/19 03/10/19 Metoprolol Succinate 25 mg PO BID 01/05/19 01/05/19 raNITIdine [Zantac] 150 mg DAILY 01/05/19 03/10/19 traZODone [Desyrel] 100 mg QPM 01/05/19 03/10/19 Ibuprofen [Motrin] 600 mg PO TID PRN #25 tab 08/23/19 dexAMETHasone [Decadron] 4 mg PO DAILY #5 tablet 08/23/19 Mupirocin 1 gm TP BID #22 oint...g. 06/01/20 - Allergies Allergies/Adverse Reactions: Allergies Allergy/AdvReac Type Severity Reaction Status Date / Time No Known Drug Allergies Allergy Verified 06/01/20 04:21 - Social History Does the pt smoke?: No Smoking Status: Never smoker Does the pt drink ETOH?: No Does the pt have substance abuse?: No - Immunizations Immunizations are current?: Yes - POLST Patient has POLST: No PD ED PE NORMAL - Vitals Vital signs reviewed: Yes (Hypertensive) - General General: Alert and oriented X 3, No acute distress, Well developed/nourished - HEENT HEENT: Atraumatic, PERRL, EOMI - Respiratory Respiratory: No respiratory distress - Derm Derm: Normal color, Warm and dry, Other (There are superficial abrasions to the left forearm there is some erythema to each of these consistent with a superficial infection. Over the left wrist over the volar surface there is one particular scratch that is slightly deeper and there does appear to be superficial infection to this as well. ) - Extremities Extremities: No deformity, No edema, Other (scratches to the left forearm appear superficially infected. 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, No motor deficit, No sensory deficit, Normal speech Eye Opening: Spontaneous Motor: Obeys Commands Verbal: Oriented GCS Score: 15 - Psych Psych: Normal mood, Normal affect Results - Vitals Vitals: Vital Signs - 24 hr 06/01/20 04:10 Temperature 36.6 C Heart Rate 95 Respiratory 16 Rate Blood Pressure 147/94 H O2 Saturation 97 Oxygen O2 Source Room air PD MEDICAL DECISION MAKING - ED course Complexity details: reviewed old records, reviewed results, re-evaluated patient, considered differential, d/w patient, d/w family ED course: 24-year-old female with a history of bipolar affective disorder has a positive review of systems with headache sleep difficulty and abdominal pain and she admits to excessive use of energy due to drinks and periodic overeating. She has stopped taking her medications because she feels they lead to weight gain and she states that she is already overweight and has been diagnosed with polycystic ovarian syndrome. Here in the emergency department she is administered a topical mupirocin. Departure - Departure Disposition: 01 Home, Self Care Clinical Impression: Superficial skin infection Condition: Stable Instructions: ED Staph Infec Abx Tx Only Follow-Up: [facility] [Provider Group] Prescriptions: Mupirocin 1 gm TP BID #22 oint...g. Comments: Today it appears the scratches on your forearm are superficially infected and we expect them to improve with use of the mupirocin ointment. My recommendation for your headaches is to reduce her caffeine intake increase your fluid intake and get regular sleep. For the abdominal pain I recommend avoiding ibuprofen and reducing single sitting meals (don't overeat).
== END 2020-06-01 05:03 | disposition home or self-care (01) ==
LOC: ED 04:08
DX: L08.9 Local infection of the skin and subcutaneous tissue, unspecified (principal); F31.9 Bipolar disorder, unspecified
CPT/HCPCS: 99282; 99284; A9270

== ENCOUNTER 2020-07-30 09:05 | Outpatient (CLI) | payer OTHER, MEDICARE, MEDICAID ==
[2020-07-30 09:33] LABS: BASOPHILS % (AUTO) 0.4 %; EOSINOPHILS # (AUTO) 0.1 10^3/uL (0.0-0.7); EOSINOPHILS % (AUTO) 1.3 %; HGB - HEMOGLOBIN 12.2 g/dL (12.0-16.0); LYMPHOCYTES # (AUTO) 3.8 10^3/uL (1.5-3.5); LYMPHOCYTES % (AUTO) 34.3 %; MEAN CORPUSCULAR HEMOGLOBIN 27.6 pg (27.0-31.0); MEAN CORPUSCULAR HGB CONC 32.2 g/dL (32.0-36.0); MEAN CORPUSCULAR VOLUME 85.7 fL (81.0-99.0); MEAN PLATELET VOLUME 9.2 fL (7.9-10.8); MONOCYTES # (AUTO) 0.7 10^3/uL (0.0-1.0); MONOCYTES % (AUTO) 5.9 %; NEUTROPHILS # (AUTO) 6.3 10^3/uL (1.5-6.6); NEUTROPHILS % (AUTO) 57.7 %; PLT - PLATELET COUNT 344 10^3/uL (130-450); RED BLOOD COUNT 4.42 10^6/uL (4.20-5.40); RED CELL DISTRIBUTION WIDTH 14.2 % (12.0-15.0); WHITE BLOOD COUNT 10.9 x10^3/uL (4.8-10.8)
[2020-07-30 09:53] LABS: ALBUMIN 3.6 g/dL (3.2-5.5); ALKALINE PHOSPHATASE 85 IU/L (42-121); ALT ALANINE AMINOTRANSFERASE 18 IU/L (10-60); AST ASPARTATE AMINOTRANSFERASE 18 IU/L (10-42); BILIRUBIN,TOTAL 0.7 mg/dL (0.2-1.0); BUN - BLOOD UREA NITROGEN 12 mg/dL (6-20); CALCIUM 9.1 mg/dL (8.5-10.3); CARBON DIOXIDE - CO2 22 mmol/L (21-32); CHLORIDE 106 mmol/L (101-111); CHOL/HDL RATIO 3.8 (<4.4); CHOLESTEROL 161 mg/dL; CREATININE 0.6 mg/dL (0.4-1.0); GLUCOSE 94 mg/dL (70-100); HDL CHOLESTEROL 42 mg/dL; LDL CHOLESTEROL,CALCULATED 99 mg/dL; LDL/HDL RATIO 2.4 (<4.4); SODIUM 139 mmol/L (135-145); TOTAL PROTEIN 7.3 g/dL (6.7-8.2); VLDL CHOLESTEROL 20 mg/dL
[2020-07-30 10:11] LABS: PROLACTIN 12.31 ng/mL
[2020-07-30 10:33] LABS: FOLLICLE STIMULATING HORMONE 2.95 mIU/mL; LUTEINIZING HORMONE 5.54 mIU/mL
[2020-07-31 05:38] LABS: PROGESTERONE 3.6 ng/mL
== END 2020-07-30 09:06 | disposition home or self-care (01) ==
LOC: LAB 09:05
PROVIDERS: ATTEND Nurse Practitioner
DX: F41.9 Anxiety disorder, unspecified (principal); E03.9 Hypothyroidism, unspecified; I10 Essential (primary) hypertension; K76.0 Fatty (change of) liver, not elsewhere classified; Z79.899 Other long term (current) drug therapy; E28.2 Polycystic ovarian syndrome
CPT/HCPCS: 36415; 80053; 80061; 82670; 83001; 83002; 83721; 84144; 84146; 84403; 84443; 85025

== ENCOUNTER 2020-08-07 08:00 | Outpatient (CLI) | payer OTHER, MEDICARE, MEDICAID ==
[2020-08-07 21:31] LABS: CANDIDA GROUP DNA NEGATIVE (NEGATIVE); CANDIDA KRUSEI DNA NEGATIVE (NEGATIVE); TRICHOMONAS VAGINALIS DNA NEGATIVE (NEGATIVE)
[2020-08-07 22:20] LABS: TRICHOMONAS VAGINALIS DNA NEGATIVE (NEGATIVE)
== END 2020-08-07 23:59 | disposition home or self-care (01) ==
LOC: LAB.R 08:00
PROVIDERS: ATTEND Nurse Practitioner Obstetrics & Gynecology
DX: Z11.3 Encounter for screening for infections with a predominantly sexual mode of transmission (principal)
CPT/HCPCS: 87491; 87591; 87661; 87801

== ENCOUNTER 2020-08-28 20:21 | Emergency (ER) | payer OTHER, MEDICARE, MEDICAID ==
--- NOTE | 2020-08-28 20:47 | ED Physician Documentation ---
History of Present Illness - Stated complaint Stated Complaint: ABD PX/FEMALE - Chief complaint Chief Complaint: Abd Pain - History obtained from History obtained from: Patient - Additonal information Additional information: 25-year-old female presents to the emergency department as she is concerned that she may have toxic shock syndrome. She reports that she is on her menstrual cycle and with the cycle she has noticed that inserting and removing the tampons is painful. It has never been painful before. She also reports that when she was sexually active last night it was painful. However when they used a water- based lubricant she had no further dyspareunia. She has no fevers, no vomiting. No rash. She denies the possibility that there is a retained tampon within her vaginal vault. She does endorse a history of menorrhagia as well as PCOS. she resumed taking OCP about 3 weeks ago after being off them for 6 months. 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 denies: Nausea, Vomiting : reports: Other (inserting and removing tampons is painful + dyspareunia). 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 : None HEENT: None Psych: Depression, Anxiety, Bipolar disorder Musculoskeletal: None Derm: None - Past Surgical History Past Surgical History: Yes General: Cholecystectomy - Present Medications Home Medications: Ambulatory Orders Medication Instructions Recorded Confirmed Metoprolol Succinate 50 mg PO DAILY 01/05/19 01/05/19 Ethinyl Estradiol/Drospirenone 1 each PO DAILY 08/28/20 08/28/20 [Huma 28 Tablet] - Allergies Allergies/Adverse Reactions: Allergies Allergy/AdvReac Type Severity Reaction Status Date / Time No Known Drug Allergies Allergy Verified 08/28/20 20:28 - Social History Does the pt smoke?: No Smoking Status: Never smoker Does the pt drink ETOH?: No Does the pt have substance abuse?: No - Immunizations Immunizations are current?: Yes - POLST Patient has POLST: No PD ED PE EXPANDED - General General: Alert, No acute distress, Other (morbidely obese) - HEENT HEENT: Atraumatic, PERRL - Cardiac Cardiac: Regular Rate, Regular Rhythm, Radial strong equal, Cap refill < 2 sec - Respiratory Respiratory: Clear to ausultation vinnie. No: Distress, Labored - Abdomen Abdomen: Normal Bowel sounds. No: Tender to palpation - Female Female : Normal external, Other (Normal pelvic exam for a woman on her menses. It was a nontender exam. Small amount of blood in the vault. No CMT. No adnexal tenderness.). No: CMT, Dilated cervix, Tissue present - Derm Derm: Normal color. No: Rash - Neuro Neuro: Alert and Oriented X 3, CNII-XII intact - GCS Eye Opening: Spontaneous Motor: Obeys Commands Verbal: Oriented Total: 15 Results - Vitals Vitals: Vital Signs - 24 hr 08/28/20 20:23 Temperature 37.1 C Heart Rate 97 Respiratory 18 Rate Blood Pressure 127/112 H O2 Saturation 97 Oxygen O2 Source Room air - Labs Labs: Laboratory Tests 08/28/20 08/28/20 08/28/20 20:35 20:40 20:40 WBC 10.2 RBC 4.27 Hgb 12.0 Hct 37.3 MCV 87.4 MCH 28.1 MCHC 32.2 RDW 13.5 Plt Count 345 MPV 9.1 Neut # (Auto) 5.6 Lymph # (Auto) 3.7 H [place] # (Auto) 0.8 Eos # (Auto) 0.2 Baso # (Auto) 0.0 Absolute Nucleated RBC 0.00 Nucleated RBC % 0.0 Sodium 141 Potassium 3.9 Chloride 104 Carbon Dioxide 21 Anion Gap 16.0 H BUN 13 Creatinine 0.7 Estimated GFR (MDRD) 104 Glucose 103 H Calcium 9.5 Total Bilirubin 0.4 AST 18 ALT 17 Alkaline Phosphatase 75 Total Protein 7.2 Albumin 3.4 Globulin 3.8 Albumin/Globulin Ratio 0.9 L Lipase 26 Urine Color YELLOW Urine Clarity HAZY Urine pH 5.5 Ur Specific [place] >=1.030 H Urine Protein NEGATIVE Urine Glucose (UA) NEGATIVE Urine Ketones NEGATIVE Urine Occult Blood LARGE H Urine Nitrite NEGATIVE Urine Bilirubin NEGATIVE Urine Urobilinogen 0.2 (NORMAL) Ur Leukocyte Esterase NEGATIVE Ur Microscopic Review INDICATED Urine Culture Comments Not Reportable Urine HCG, Qual NEGATIVE PD MEDICAL DECISION MAKING - ED course Complexity details: reviewed results, re-evaluated patient, considered differential, d/w patient ED course: 25-year-old female presents to the emergency department for evaluation of pain when she inserts her tampons. She also reported dyspareunia last night that improved with the use of a water-based lubricant. She is concerned that she could have toxic shock syndrome however her constellation of symptoms, lack of fever, abdominal pain or leukocytosis is not consistent with TSS. Her pelvic exam did not reveal any retained tampon or foreign body. It was a nontender exam. I deferred STD testing as she reports a recently clean panel. I suspect that the source of her pain may be related to recently resuming oral contraceptives and have advised the patient to continue to monitor her symptoms conservatively. I have advised use of a water-based lubricant when sexually active or even with the insertion of tampons. Departure - Departure Disposition: 01 Home, Self Care Clinical Impression: Vaginal pain Condition: Stable Record reviewed to determine appropriate education?: Yes Comments: Daysi I hope that you are feeling better soon. Was essentially normal today. I suspect that the pain you have with recent sexual activity as well is with the insertion of a tampon may be some mild vaginal dryness secondary to resuming oral contraceptives/hormones. You do not have toxic shock syndrome. It is okay to continue sexual activity however I encourage you to use a water- based lubricant until your body adjusts to this oral contraceptive. If at any point you develop a rash, have a fever, suddenly severe lower pelvic pain or any other concerns of infection please return immediately to the ER.
[2020-08-28 20:57] LABS: BASOPHILS % (AUTO) 0.3 %; EOSINOPHILS # (AUTO) 0.2 10^3/uL (0.0-0.7); EOSINOPHILS % (AUTO) 1.5 %; LYMPHOCYTES # (AUTO) 3.7 10^3/uL (1.5-3.5); LYMPHOCYTES % (AUTO) 35.8 %; MEAN CORPUSCULAR HEMOGLOBIN 28.1 pg (27.0-31.0); MEAN CORPUSCULAR HGB CONC 32.2 g/dL (32.0-36.0); MEAN CORPUSCULAR VOLUME 87.4 fL (81.0-99.0); MEAN PLATELET VOLUME 9.1 fL (7.9-10.8); MONOCYTES # (AUTO) 0.8 10^3/uL (0.0-1.0); MONOCYTES % (AUTO) 7.5 %; NEUTROPHILS # (AUTO) 5.6 10^3/uL (1.5-6.6); NEUTROPHILS % (AUTO) 54.7 %; PLT - PLATELET COUNT 345 10^3/uL (130-450); RED BLOOD COUNT 4.27 10^6/uL (4.20-5.40); RED CELL DISTRIBUTION WIDTH 13.5 % (12.0-15.0); WHITE BLOOD COUNT 10.2 x10^3/uL (4.8-10.8)
[2020-08-28 21:00] LABS: BILIRUBIN,URINE NEGATIVE (NEGATIVE); GLUCOSE, URINE (UA) NEGATIVE (NEGATIVE); KETONES,URINE (UA) NEGATIVE (NEGATIVE); LEUKOCYTE ESTERASE, URINE NEGATIVE (NEGATIVE); NITRITE,URINE NEGATIVE (NEGATIVE); OCCULT BLOOD,URINE LARGE (NEGATIVE); PH,URINE 5.5 PH (5.0-7.5); PROTEIN,URINE NEGATIVE (NEGATIVE); UROBILINOGEN,URINE 0.2 (NORMAL) E.U./dL (NORMAL)
[2020-08-28 21:04] LABS: CLARITY,URINE HAZY (CLEAR); HCG UR QUAL NEGATIVE
[2020-08-28 21:08] LABS: ALBUMIN 3.4 g/dL (3.2-5.5); ALBUMIN/GLOBULIN RATIO 0.9 (1.0-2.2); BILIRUBIN,TOTAL 0.4 mg/dL (0.2-1.0); CALCIUM 9.5 mg/dL (8.5-10.3); CREATININE 0.7 mg/dL (0.4-1.0); TOTAL PROTEIN 7.2 g/dL (6.7-8.2)
[2020-08-28 21:19] VITALS: BP 126/98
[2020-08-28 21:19] LABS: BACTERIA,URINE None Seen /HPF (None Seen); CRYSTALS,URINE >50 Calcium Oxalate /LPF; SQUAMOUS EPITHELIAL CELL,UR NONE SEEN (<= Few)
== END 2020-08-28 21:20 | disposition home or self-care (01) ==
LOC: ED 20:21
DX: N89.8 Other specified noninflammatory disorders of vagina (principal); R10.2 Pelvic and perineal pain; N94.10 Unspecified dyspareunia; I10 Essential (primary) hypertension
CPT/HCPCS: 36415; 80053; 81001; 81003; 81025; 83690; 85025; 87086; 99283

== ENCOUNTER 2020-09-12 08:00 | Outpatient (CLI) | payer OTHER, MEDICARE, MEDICAID ==
[2020-09-12 17:46] LABS: CANDIDA GROUP DNA NEGATIVE (NEGATIVE); CANDIDA KRUSEI DNA NEGATIVE (NEGATIVE); TRICHOMONAS VAGINALIS DNA NEGATIVE (NEGATIVE)
== END 2020-09-12 23:59 | disposition home or self-care (01) ==
LOC: LAB.N 08:00
PROVIDERS: ATTEND Nurse Practitioner Obstetrics & Gynecology
DX: N89.8 Other specified noninflammatory disorders of vagina (principal)
CPT/HCPCS: 87661; 87801

== ENCOUNTER 2020-11-15 03:05 | Emergency (ER) | payer OTHER, MEDICARE, MEDICAID ==
--- NOTE | 2020-11-15 03:20 | ED Physician Documentation ---
PD HPI CHEST PAIN - Stated complaint Stated Complaint: CHEST PX, ABD PX - Chief complaint Chief Complaint: Abd Pain - History obtained from History obtained from: Patient - Additional information Additional information: 25-year-old woman with history of bipolar, insomnia, polycystic ovarian syndrome presents with constant mild bilateral lower quadrant and suprapubic abdominal pain for the past week that is an aching quality and nonradiating associated with chest pain and severe anxiety. Patient denies vaginal bleeding or discharge however she says that she saw her OB yesterday and was diagnosed with bacterial vaginosis. LMP 2/6. Denies fevers, urinary symptoms, back pain, nausea vomiting, diarrhea, shortness of breath. Review of Systems Ten Systems: 10 systems reviewed and negative Constitutional: denies: Fever, Chills GI: reports: Abdominal Pain. 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 : None HEENT: None Psych: Depression, Anxiety, Bipolar disorder Musculoskeletal: None Derm: None - Past Surgical History Past Surgical History: Yes General: Cholecystectomy - Present Medications Home Medications: Ambulatory Orders Medication Instructions Recorded Confirmed Metoprolol Succinate 50 mg PO DAILY 01/05/19 11/15/20 Ethinyl Estradiol/Drospirenone 1 each PO DAILY 08/28/20 11/15/20 [Huma 28 Tablet] Multivitamin 1 tab DAILY 08/28/20 11/15/20 Lurasidone HCl [Latuda] 20 mg PO DAILY 11/15/20 11/15/20 metFORMIN [Glucophage] 500 mg PO DAILY 11/15/20 11/15/20 - Allergies Allergies/Adverse Reactions: Allergies Allergy/AdvReac Type Severity Reaction Status Date / Time No Known Drug Allergies Allergy Verified 11/15/20 03:30 - Social History Does the pt smoke?: No Smoking Status: Never smoker Does the pt drink ETOH?: No Does the pt have substance abuse?: No - Immunizations Immunizations are current?: Yes - POLST Patient has POLST: No PD ED PE NORMAL - Vitals Vital signs reviewed: Yes - General General: Alert and oriented X 3, No acute distress, Well developed/nourished, Other (face streaked with mascara/tears) - HEENT HEENT: Atraumatic, PERRL - Neck Neck: Supple, no meningeal sign - Cardiac Cardiac: RRR - Respiratory Respiratory: No respiratory distress, Clear bilaterally - Abdomen Abdomen: Non tender, Non distended - Back Back: No CVA TTP - Derm Derm: Normal color - Neuro Neuro: Alert and oriented X 3 - Psych Psych: Other (anxious mood and affect. improved after history and exam) Results - Vitals Vitals: Vital Signs - 24 hr 11/15/20 03:07 Temperature 37.4 C Heart Rate 100 Respiratory 18 Rate Blood Pressure 174/122 H O2 Saturation 97 Oxygen O2 Source Room air - EKG (time done) 0308 Rate: Rate (enter#) (110) Rhythm: Sinus tachycardia - Labs Labs: Laboratory Tests 11/15/20 11/15/20 11/15/20 03:41 03:41 03:55 WBC 12.1 H RBC 4.31 Hgb 11.9 L Hct 37.0 MCV 85.8 MCH 27.6 MCHC 32.2 RDW 13.4 Plt Count 338 MPV 9.0 Neut # (Auto) 6.5 Lymph # (Auto) 4.5 H [place] # (Auto) 0.9 Eos # (Auto) 0.2 Baso # (Auto) 0.0 Absolute Nucleated RBC 0.00 Nucleated RBC % 0.0 Sodium 137 Potassium 3.4 L Chloride 103 Carbon Dioxide 23 Anion Gap 11.0 BUN 12 Creatinine 0.8 Estimated GFR (MDRD) 89 Glucose 102 H Calcium 9.3 Total Bilirubin 0.6 AST 16 ALT 16 Alkaline Phosphatase 86 Total Protein 7.6 Albumin 3.6 Globulin 4.0 Albumin/Globulin Ratio 0.9 L Lipase 22 Urine Color YELLOW Urine Clarity HAZY Urine pH 6.0 Ur Specific [place] >=1.030 H Urine Protein NEGATIVE Urine Glucose (UA) NEGATIVE Urine Ketones NEGATIVE Urine Occult Blood NEGATIVE Urine Nitrite NEGATIVE Urine Bilirubin NEGATIVE Urine Urobilinogen 0.2 (NORMAL) Ur Leukocyte Esterase SMALL H Urine RBC 0-5 Urine WBC 6-10 H Ur Squamous Epith Cells MOD Squamous H Urine Crystals 3-5 Calcium Oxalate Urine Bacteria Few Urine Mucus Moderate Strands Ur Microscopic Review INDICATED Urine Culture Comments NOT INDICATED Urine HCG, Qual NEGATIVE PD MEDICAL DECISION MAKING - ED course ED course: 25-year-old woman with extensive psychiatric history including severe anxiety and insomnia presents with abdominal pain for the past week that is constant mild and nonworsening. Also with chest tightness that is improving. EKG noncontributory. Exam unremarkable. Will give Tylenol, send basic labs/ua and reassess. Labs and urine noncontributory. reevaluated patient and her symptoms have resolved with tylenol. She states she feels tired and would like to go home and rest. strict return precautions given. 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 Departure - Departure Disposition: Home, Self Care Clinical Impression: Chest pain, Abdominal pain Condition: Good Instructions: ED Abdominal Pain Unkn Cause Follow-Up: Yaneli Sanders MD [Provider Admit Priv/Credential] - Comments: You were seen in the emergency department for abdominal pain. It improved with Tylenol and it looks like your lab work and urine are not showing any signs of medical emergencies. I am glad that you are feeling better. Please follow-up with your [employer]ENT this week. Return to the emergency department for any new or worsening symptoms or other concerns.
[2020-11-15] MEDS ORDERED: ACETAMINOPHEN 325 MG TABLET PO STA (03:48)
[2020-11-15 03:55] LABS: BASOPHILS % (AUTO) 0.2 %; EOSINOPHILS # (AUTO) 0.2 10^3/uL (0.0-0.7); EOSINOPHILS % (AUTO) 1.4 %; HGB - HEMOGLOBIN 11.9 g/dL (12.0-16.0); LYMPHOCYTES # (AUTO) 4.5 10^3/uL (1.5-3.5); LYMPHOCYTES % (AUTO) 36.7 %; MEAN CORPUSCULAR HEMOGLOBIN 27.6 pg (27.0-31.0); MEAN CORPUSCULAR HGB CONC 32.2 g/dL (32.0-36.0); MEAN CORPUSCULAR VOLUME 85.8 fL (81.0-99.0); MONOCYTES # (AUTO) 0.9 10^3/uL (0.0-1.0); MONOCYTES % (AUTO) 7.6 %; NEUTROPHILS # (AUTO) 6.5 10^3/uL (1.5-6.6); NEUTROPHILS % (AUTO) 53.8 %; PLT - PLATELET COUNT 338 10^3/uL (130-450); RED BLOOD COUNT 4.31 10^6/uL (4.20-5.40); RED CELL DISTRIBUTION WIDTH 13.4 % (12.0-15.0); WHITE BLOOD COUNT 12.1 x10^3/uL (4.8-10.8)
[2020-11-15 04:03] LABS: BILIRUBIN,URINE NEGATIVE (NEGATIVE); GLUCOSE, URINE (UA) NEGATIVE (NEGATIVE); KETONES,URINE (UA) NEGATIVE (NEGATIVE); LEUKOCYTE ESTERASE, URINE SMALL (NEGATIVE); NITRITE,URINE NEGATIVE (NEGATIVE); OCCULT BLOOD,URINE NEGATIVE (NEGATIVE); PROTEIN,URINE NEGATIVE (NEGATIVE); UROBILINOGEN,URINE 0.2 (NORMAL) E.U./dL (NORMAL)
[2020-11-15 04:05] LABS: CLARITY,URINE HAZY (CLEAR); HCG UR QUAL NEGATIVE
[2020-11-15 04:07] LABS: ALBUMIN 3.6 g/dL (3.2-5.5); ALBUMIN/GLOBULIN RATIO 0.9 (1.0-2.2); BILIRUBIN,TOTAL 0.6 mg/dL (0.2-1.0); CALCIUM 9.3 mg/dL (8.5-10.3); CREATININE 0.8 mg/dL (0.4-1.0); POTASSIUM 3.4 mmol/L (3.5-5.0); TOTAL PROTEIN 7.6 g/dL (6.7-8.2)
[2020-11-15 04:16] LABS: BACTERIA,URINE Few /HPF (None Seen); MUCUS,URINE Moderate Strands; RBC,URINE 0-5 /HPF (0-5); SQUAMOUS EPITHELIAL CELL,UR MOD Squamous (<= Few)
[2020-11-15 04:17] LABS: CRYSTALS,URINE 3-5 Calcium Oxalate /LPF
[2020-11-15 04:31] VITALS: BP 137/93
== END 2020-11-15 04:32 | disposition home or self-care (01) ==
LOC: ED 03:05
DX: R10.31 Right lower quadrant pain (principal); R10.32 Left lower quadrant pain; R07.89 Other chest pain; F41.9 Anxiety disorder, unspecified; R00.0 Tachycardia, unspecified; I10 Essential (primary) hypertension; F31.9 Bipolar disorder, unspecified; G47.00 Insomnia, unspecified; E28.2 Polycystic ovarian syndrome
CPT/HCPCS: 36415; 80053; 81001; 81025; 83690; 85025; 93005; 99283; 99284; A9270; 81003; 87086

== ENCOUNTER 2023-12-25 17:38 | Emergency (ER) | payer MEDICARE, MEDICAID ==
[2023-12-25 17:46] VITALS: BP 172/107; O2SAT 99
--- NOTE | 2023-12-25 18:16 | ED Physician Documentation ---
PD HPI SKIN - Stated complaint Stated Complaint: ALLERGIC REACTION - Chief complaint Chief Complaint: Allergic Rx - Additional information Additional information: 28-year-old female presents emergency department for concerns of an allergic re action that she is experiencing on the back of her head from dying her hair. Patient used a new hair dye a couple days ago and started noticing itching to the back of her scalp yesterday and onto her upper back. No fevers or chills no shortness of breath no difficulty breathing she just says it feels very itchy. She has never had this happen before. 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 : None HEENT: None Psych: Depression, Anxiety, Bipolar disorder Musculoskeletal: None Derm: None - Past Surgical History Past Surgical History: Yes General: Cholecystectomy - Present Medications Home Medications: Ambulatory Orders Medication Instructions Recorded Confirmed Escitalopram Oxalate 20 mg PO DAILY 12/25/23 12/25/23 buPROPion [Wellbutrin Sr] 150 mg PO BID 12/25/23 12/25/23 hydrOXYzine PAMOATE [Vistaril] 25 mg PO Q8H PRN #15 cap 12/25/23 - Allergies Allergies/Adverse Reactions: Allergies Allergy/AdvReac Type Severity Reaction Status Date / Time No Known Drug Allergies Allergy Verified 12/25/23 17:44 - Social History Does the pt smoke?: No Smoking Status: Never smoker Does the pt drink ETOH?: No Does the pt have substance abuse?: No - Immunizations Immunizations are current?: Yes - POLST Patient has POLST: No PD ED PE NORMAL - Vitals Vital signs reviewed: Yes - General General: Alert and oriented X 3, No acute distress, Well developed/nourished - Respiratory Respiratory: No respiratory distress, Clear bilaterally PD ED PE EXPANDED - Derm Derm: Warm and dry, Rash, Macules. No: Vesicles, Target lesions, Petecchiae, Abscess Results - Vitals Vitals: Vital Signs - 24 hr 12/25/23 17:42 Temperature 36.2 C L Heart Rate 98 Respiratory 16 Rate Blood Pressure 172/107 H O2 Saturation 99 Oxygen O2 Source Room air PD Medical Decision Making - ED course ED course: I believe that patient is experiencing contact dermatitis due to dye exposure. She was given Zyrtec here in the emergency department as well as hydroxyzine for the itching and topical hydrocortisone cream a prescription of hydroxyzine was sent to her preferred pharmacy and she was told to not take her Lexapro for a few days while she is on hydroxyzine. Patient told to follow-up with primary care provider for further evaluation if needed and given return precautions. Departure - Departure Disposition: 01 Home, Self Care Clinical Impression: Contact dermatitis Qualifiers: Contact dermatitis type: allergic Contact dermatitis trigger: dye Qualified Code(s): L23.4 - Allergic contact dermatitis due to dyes Instructions: ED Dermatitis Contact Prescriptions: hydrOXYzine PAMOATE [Vistaril] 25 mg PO Q8H PRN #15 cap PRN Reason: Itching Comments: I believe that you have a rash from something called contact dermatitis that is caused by the dye that you recently used on your hair. I want you to take an [id number] medication called Zyrtec will take this once a day for the next week or so until the rash goes away. I also want you to get some hydrocortisone [id number] ointments that you can apply to the rash to help with any itching sensation that you are experiencing. I have sent a pr escription of hydroxyzine to help with the itching to preferred pharmacy and we gave you the first dose here in the emergency department. Do not take this with your Lexapro, I would hold off any Lexapro for couple days while you are taking the hydroxyzine. Please come back to the emergency department if you are starting to develop any shortness of breath, difficulty breathing, fevers chills or any other concerning symptoms. Forms: PCP List Discharge Date/Time: 12/25/23 18:25
[2023-12-25] MEDS: CETIRIZINE 10 MG TABLET PO STA (18:19)
[2023-12-25] MEDS: hydrOXYzine PAMOATE 25 MG CAPSULE PO STA (18:19)
[2023-12-25] MEDS: HYDROCORTISONE 1% CREAM 28 GM TUBE TOP STA (18:19)
== END 2023-12-25 18:25 | disposition home or self-care (01) ==
LOC: ED 17:38
DX: L23.4 Allergic contact dermatitis due to dyes (principal); I10 Essential (primary) hypertension
CPT/HCPCS: 99283; A9270